=== PATIENT | male | born 1955 | race Caucasian/White ===

== ENCOUNTER → 2017-04-25 14:08 | Outpatient (CLI) | payer OTHER, SELFPAY ==
--- NOTE | 2017-04-25 14:16 | RAD_ITS ---
STUDY: X-RAY - LUMBAR SPINE REASON FOR EXAM: Male, 61 years old. 2 day history of extreme low back pain. TECHNIQUE: 5 view(s) of the lumbar spine were obtained including oblique views. COMPARISON: None FINDINGS: Normal lumbar lordosis. Minimal dextroscoliosis. There is a normal alignment of the vertebrae. Disc space narrowing and spondylosis at the L3-L4 level. Normal disc space heights. Facet joint osteoarthritis. The soft tissue structures are unremarkable. RAD/L/S Spine Min 4 Views IMPRESSION: Degenerative changes of the spine, as detailed above. Electronically Signed: Sreedhar Correa MD at 14:50 EST Tel [phone], Service support ,
== END ==
PROVIDERS: Family Provider Nurse Practitioner; PCP Nurse Practitioner; Visit Provider Nurse Practitioner
DX: M54.32 Sciatica, left side (principal); M41.86 Other forms of scoliosis, lumbar region; M48.061 Spinal stenosis, lumbar region without neurogenic claudication; M47.896 Other spondylosis, lumbar region
CPT/HCPCS: 72110

== ENCOUNTER → 2017-05-03 07:03 | Outpatient (CLI) | payer OTHER, SELFPAY ==
--- NOTE | 2017-05-03 07:15 | RAD_ITS ---
STUDY: TO THE ORBITS, RIGHT REASON FOR EXAM: Male, 61 years old. MRI clearance COMPARISON: None. FINDINGS: 2 views demonstrate no metallic orbital foreign body. RAD/Orbits for Foreign Body IMPRESSION: No metallic orbital foreign body. Electronically Signed: Matt Nixon MD at 7:46 EST Tel , Service support ,
--- NOTE | 2017-05-03 07:23 | MRI_ITS ---
STUDY: MRI LUMBAR SPINE WITHOUT CONTRAST REASON FOR EXAM: Male, 61 years old. Left leg pain and low back pain TECHNIQUE: Standardized fat and water weighted pulse sequences were obtained in the sagittal and axial planes. COMPARISON: None FINDINGS: Grade 1 anterolisthesis of L5 on S1 with bilateral L5 level spondylolysis. No evidence for cord edema. Conus terminus or possibly L1 level. Cauda equina nerve roots follow spinal curvature. Minimal wedging of the mid substance of the lumbar vertebra. Disc desiccation at L2-L3, L3-L4 and L5-S1 levels with mild loss of disc height. Endplate degenerative changes at L2-L3, L3-L4 and L5-S1 levels. Anterior and posterior osteophytic spurring. Hypertrophy of this process processes. Heterogeneous marrow signal intensity. Multiple scattered vertebral body hemangiomas Level by level analysis: L1-L2 level: Mild facet hypertrophy ligamentum flavum thickening and broad-based disc bulge without significant central canal stenosis or neural foraminal narrowing L2-L3 level: Bilateral facet hypertrophy ligamentum flavum thickening and broad-based disc bulge with a superimposed left subarticular and foraminal level disc extrusion and cephalad migration resulting in mild deformity of the left ventrolateral thecal sac and moderate left-sided neural foraminal narrowing and mild right-sided neural foraminal narrowing. Approximation/impingement of the left L2 nerve suspected L3-L4 level: Bilateral facet hypertrophy ligamentum flavum thickening and broad-based disc bulge resulting in moderate bilateral neural foraminal narrowing without significant central canal stenosis L4-L5 level: Bilateral facet hypertrophy ligamentum flavum thickening and broad-based disc bulge resulting in moderate right-sided and moderate left-sided neural foraminal narrowing with marginal osteophytes approximating the right exiting L4 nerve root. L5-S1 level: Bilateral facet hypertrophy with grade 1 anterolisthesis of L5 on S1 and a pseudodisc with a superimposed small central disc protrusion resulting in mild flattening of the ventral thecal sac [id number] bilateral neural foraminal narrowing. No paraspinous soft tissue mass or fluid collections. IMPRESSION: Grade 1 anterolisthesis of L5 on S1 with L5 level bilateral spondylolysis and spondylotic changes predominating at L2-L3 level. Electronically Signed: Aquiles Garcia, at 10:59 EST Tel , Service support , MRI/Spine Lumbar (Routine)
== END ==
PROVIDERS: Family Provider Nurse Practitioner; PCP Nurse Practitioner; Visit Provider Nurse Practitioner
DX: M54.32 Sciatica, left side (principal); M47.896 Other spondylosis, lumbar region
CPT/HCPCS: 70030; 72148

== ENCOUNTER 2017-05-22 11:00 | Outpatient (RCR) | payer OTHER, SELFPAY ==
--- NOTE | 2017-05-01 08:49 | HP.PTEVAL ---
Patient's Visit Information SANDOR HERNANDEZ is a 61 year old M referred to Physical Therapy by Darcie Daly NP.MCIESA with a diagnosis of Sciatica. Date of Evaluation: 04/28/17 Physical Therapist: Quang Parra - Visit Plan Frequency: 2x /Week Plan: Start with distraction in aquatic setting, light TA contraction, general mobility in gravity reduce eviornment. Once symptoms has reduce introduce light lumbar ext mobility. If progressing well, progress to land with focus body mechanics, lumbar ext tolerance (light), core stability (light). May use IF/US for modalities as needed. - Subjective Subjective: Pt. is here today for his initial evaluation with diagnosis of sciatica down his L side. Pt. reports having increased pain for 6 days. Pt. reports being over to throw away paper into his recycling can. Pt. reports having re occuring back pain ~1-2 per year, but not this date. Pt. is now having increased pain to 7-8/10 pain currently, but was so bad over the weekend, it was an 16. Pt did have an xray which showed arthritic changes, but no fx. Pt. reports being in good health prior to this injury and is no retired. He denies changes in B/B, but is having numbnes to his lateral L knee. Pt. denies weakness, but I feel like I am walking weird. He reports increased pain in the mornings, that decreases as he moves. Increased pain with sitting, walking is better, Pt. reports enjying playing golf, fishing, and plans on travelling and camping. He is hopeful to reduce symptoms in order to get back to all functional and recreational activities without limitations. He was given steroid, but was able to take due to pain. Spouse went to physican during evaluation and pt. was perscribed muscle relaxor. Pt's spouse also reports physician was looking into MRI for pt. - Pain LLE Pain Intensity (Out of 10): 5 Pain Intensity Range: 2, 6 Comment: lateral numbness. - Objective POSTURE: Pt. has flexed posture, fwrd lean and to R side. Pt. has increased pain with attempts to stand with erect posture. Pt. has rounded shoulders and decreased lumbar lordosis. PALPATION: Pt. has increased pain with palpation to lumbar erector spinea bilaterally, muscle tone noted as well. pt. has no pain throughout pelvic region and gluteal region. NEUROLOGICAL: Pt. has normal 2+ achilles and patellar DTR. Pt. does have marked weakness with R great toe ext. Pt. also has decreased sensation to light touch of proximal and disal LLE at lateral aspect. Pt. is able to rise on heels, but uses balance aid to complete. ROM: LUMBAR SPINE- flexion mod/max loss increase NW, ext max loss (unable to achieve erect posture), SB right min/mod loss incerase NW, SB L mod/max loss increase NW, rotation R mod loss increase NW, rotation L max loss increase NW. Pt. has normal hip ROM bilaterally, tight HS noted bilat. MMT- RLE- ankle 5/5 throughout; knee- ext 5/5, flexion 5/5; hip- flexion 4/5 (increase LBP), abd 4/5 increase NW. Great toe ext 5/5, flexion 5/5. LLE- ankle 5/5 throughout; great toe ext 5/5, flexion 5/5; knee- ext 5-/5, flexion 5-/5; hip- flexion 4/5 increase NW LBP, abd 4/5 increase NW LBP. Core strenth- poor increase NW. GAIT: Pt. ambulates with flexed posture and R wt. shift. Pt. has increased difficulty with getting erect posture. Pt. has increased pain with all L stance phase of gait, shots pain rigth down my leg from my back. DNT stairs this date. - Special Tests L/S Slump test left side: Positive L/S Slump test right side: Negative L/S Left Straight Leg Raise: Positive L/S Right Straight Leg Raise: Negative Lumbar Standing: Flexion - Mechanical Response: No effect Lumbar Standing: Flexion - Symptoms During Testing: Increases Lumbar Standing: Flexion - Symptoms After Testing: No worse Lumbar Standing: Extension - Mechanical Response: No effect Lumbar Standing: Extension - Symptoms During Testing: Increases Lumbar Standing: Extension - Symptoms After Testing: No worse Lumbar Standing: Right Side Glides - Mechanical Response: No effect Lumbar Standing: Right Side [place] - Symptoms During Testing: Increases Lumbar Standing: Right Side [place] - Symptoms After Testing: No worse Lumbar Standing: Left Side [place] - Mechanical Response: No effect Lumbar Standing: Left Side [place] - Symptoms During Testing: Increases Lumbar Standing: Left Side [place] - Symptoms After Testing: No worse Comments:: Pt. unable to get into position of prone secondary to increased pain Lumbar Static: Slouched Sit - Mechanical Response: No effect Lumbar Static: Slouched Sit - Symptoms During Testing: Increases Lumbar Static: Slouched Sit - Symptoms After Testing: No worse Lumbar Static: Sitting Erect - Mechanical Response: No effect Lumbar Static: Sitting Erect - Symptoms During Testing: Increases Lumbar Static: Sitting Erect - Symptoms After Testing: No worse Comments:: Pt. unable to get in prone positioning secondary to increased pain - Goals Goal 1:: Pt. to be I with HEP. Goal Time Frame: 4-6 Weeks Goal 2:: STG: Pt. to have decreased pain at rest to 0-2/10 in lumbar spine allowing for increased quality of life. Goal Time Frame: 2-4 Weeks Goal 3:: LTG: Pt. to ambulate and complete all ADLs 0-2/10 allowing increasd tolerance to all functional mobility and promote healthy life style. Goal Time Frame: 4-6 Weeks Goal 4:: LTG: Pt. to be educated in all prophalxis techniques to reduce risk for injury occuring in future. Goal Time Frame: 4-6 Weeks Goal 5:: LTG: Pt. to have increased lumbar ROM by 25% in all directions without increase in symptoms. Goal Time Frame: 4-6 Weeks Goal 6:: LTG: Pt. to have increased core/hip strength by 1/2 grade to reduce stress applied to lumbar spine with all activities. Goal Time Frame: 4-6 Weeks - Rehabilitation Potential Physical Therapy Diagnosis: Pt. has signs and symptoms consistent with LBP with possible discogenic in nature. Pt. has positive dural testing with staight leg test, and slump test. Pt. also had an event Rehabilitation Potential: Fair - Anticipated Interventions Patient/Client Instruction: Educate patient on: Condition, Plan of Care, Risk Factors, Benefits of Fitness Program For the Purpose of:: To improve safety, To improve health and function, To foster healthy habits, To improve decision making, To facilitate caregiver knowledge, To improve self management, To prevent re-injury, To improve ability to perform tasks related to life management, To improve tolerance to ADL's Therapeutic Exercise to Include: Strength training, Power training, Endurance training, Flexibilty training, In an aquatic setting, Passive ROM, Active ROM, Dynamic Lumbar Stabilization, Margret Exercises, Scapular Strength/Stabilization For the Purpose of:: To decrease pain, To decrease swelling/inflammation, To increase ROM, To improve nutrient delivery to tissue, To increase oxygenation perfusion, To improve muscle performance and motor function, To improve ability to perform ADL's, To increase tolerance to activity/condition/position, To improve health of tissue, To decrease soft tissue restriction, To increase flexibility/ROM Manual Therapy Techniques to Include: Massage, Mobilization, Soft tissue mobilization For the Purpose of:: To decrease pain, To increase ROM, To improve nutrient delivery to tissue, To increase oxygenation perfusion, To improve muscle performance and motor function, To improve ability to perform ADL's IF ES: Yes Cryotherapy (ice pack, ice massage): Yes Ultrasound (thermal/non thermal): Yes For the Purpose of:: To decrease pain, To decrease swelling/inflammation, To increase ROM Thank you for the opportunity to evaluate your patient. For Medicare and Medicare HMO plans, please review the plan of care and approve it. It will need to be FAXED BACK to us at [phone] for Medicare purposes. Please let me know if there are questions or concerns regarding this plan of care. Physician Signature: Date:
--- NOTE | 2017-05-22 12:38 | HP.PTREVAL_ITS ---
Darcie Daly, JAS.LEIGHA It has been my pleasure to treat SANDOR HERNANDEZ over the last 10 visits for Sciatica. Please see the progress note below for an update on the physical therapy plan of care! Subjective: PATIENT REPORTS HE NEVER DID GET AN INJECTION. THERAPY HAS RELEAVED THE PRESSURE AND HE IS ALMOST A 100% BETTER. APPOINTMENT WITH DR. TA THIS WEEK AND HE RECOMMENDED INJECTIONS HE JUST HAS TO SCHEDULE IT IF HE WANTS IT. HE HAS ALSO SUBMITTED HIS CASE TO DR. MCKENNA AT [facility] AND IS AWAITING A RESPONSE FROM THEM. PATIENT REPORTS THAT AT THIS POINT HIS BACK IS NOT LIMITING ANY OF HIS NORMAL ACTIVITIES. HE FEELS HIS ACTIVITIES ARE UNRESTRICTED AT THIS TIME. Objective/Function: THIS PATIENT AMBULATES INDEP'LY INTO PT WITH NO GROSS DEVIATIONS NOTED. HE IS ABLE TO TRANSFER IND'LY FROM SIT TO STAND WITHOUT UE ASSIST. NE DENIES PAIN WITH ANY TESTING TODAY. LUMBAR MVMT LOSS: FLEX - NIL, EXT - MOD, ALM ADELIA SG - MIN TO MOD. AGAIN - TESTING DOES NOT PROVOKE PAIN. ALMA DELIA LE STRENGTH IS 5/5 WITH MMT EXCEPT HIPS GRADED 4/5 AND CORE STRENGTH IS FAIR. ALMA DELIA LE DTR'S ARE 2/3. ALMA DELIA LE LIGHT TOUCH SENSATION IS INTACT AND SYMMETRICAL AND ALMA DELIA LE DURAL SIGNS ARE NEGATIVE. HE DOES STILL HAVE DECREASED PROPER HEP KNOWLEGE BUT BECOMING INDEP WITH A POOL PROGRAM TO THE POINT THAT HE CAN TRANSITION TO INDEPENDENCE AT PLACE OF HIS CHOICE (DAYS INN) WHILE DECREASE AQUATIC PT TO ONCE A WEEK. DECREASED KNOWLEGE OF PROPER BODY MECHANICS. Plan Plan: RECOMMEND CONTINUED PT 1X/WEEK IN THE POOL AND 1X/WEEK ON LAND TO CONTINUE TO PROGRESS TOWARD SAME GOALS. PATIENT IS AGREEABLE WITH THIS POC Goals Goal 1:: Pt. to be I with HEP. Goal Time Frame: 4-6 Weeks Goal 2:: STG: Pt. to have decreased pain at rest to 0-2/10 in lumbar spine allowing for increased quality of life. Goal Time Frame: 2-4 Weeks Goal 3:: LTG: Pt. to ambulate and complete all ADLs 0-2/10 allowing increasd tolerance to all functional mobility and promote healthy life style. Goal Time Frame: 4-6 Weeks Goal 4:: LTG: Pt. to be educated in all prophalxis techniques to reduce risk for injury occuring in future. Goal Time Frame: 4-6 Weeks Goal 5:: LTG: Pt. to have increased lumbar ROM by 25% in all directions without increase in symptoms. Goal Time Frame: 4-6 Weeks Goal 6:: LTG: Pt. to have increased core/hip strength by 1/2 grade to reduce stress applied to lumbar spine with all activities. Goal Time Frame: 4-6 Weeks Anticipated Interventions Patient/Client Instruction: Educate patient on: Condition, Plan of Care, Risk Factors, Benefits of Fitness Program For the Purpose of:: To improve safety, To improve health and function, To foster healthy habits, To improve decision making, To facilitate caregiver knowledge, To improve self management, To prevent re-injury, To improve ability to perform tasks related to life management, To improve tolerance to ADL's Therapeutic Exercise to Include: Strength training, Power training, Endurance training, Flexibilty training, In an aquatic setting, Passive ROM, Active ROM , Dynamic Lumbar Stabilization, Margret Exercises, Scapular Strength/ Stabilization For the Purpose of:: To decrease pain, To decrease swelling/inflammation, To increase ROM, To improve nutrient delivery to tissue, To increase oxygenation perfusion, To improve muscle performance and motor function, To improve ability to perform ADL's, To increase tolerance to activity/condition/position, To improve health of tissue, To decrease soft tissue restriction, To increase flexibility/ROM Manual Therapy Techniques to Include: Massage, Mobilization, Soft tissue mobilization For the Purpose of:: To decrease pain, To increase ROM, To improve nutrient delivery to tissue, To increase oxygenation perfusion, To improve muscle performance and motor function, To improve ability to perform ADL's IF ES: Yes Cryotherapy (ice pack, ice massage): Yes Ultrasound (thermal/non thermal): Yes For the Purpose of:: To decrease pain, To decrease swelling/inflammation, To increase ROM Please do not hesitate to contact me at [phone] by phone or Fax: if you have questions or concerns regarding this new plan of care! Sincerely, Giovana Ahumada
--- NOTE | 2017-09-16 13:41 | HP.PTDCNRP_ITS ---
HP - Discharge Summary (1) - Patient Information SANDOR HERNANDEZ was seen in my office for initial evaluation on 04/28/17. The following Plan of Care was established for this patient: Initial Frequency: 2x /Week - Anticipated Interventions Patient/Client Instruction: Educate patient on: Condition, Plan of Care, Risk Factors, Benefits of Fitness Program For the Purpose of:: To improve safety, To improve health and function, To foster healthy habits, To improve decision making, To facilitate caregiver knowledge, To improve self management, To prevent re-injury, To improve ability to perform tasks related to life management, To improve tolerance to ADL's Therapeutic Exercise to Include: Strength training, Power training, Endurance training, Flexibilty training, In an aquatic setting, Passive ROM, Active ROM , Dynamic Lumbar Stabilization, Margret Exercises, Scapular Strength/ Stabilization For the Purpose of:: To decrease pain, To decrease swelling/inflammation, To increase ROM, To improve nutrient delivery to tissue, To increase oxygenation perfusion, To improve muscle performance and motor function, To improve ability to perform ADL's, To increase tolerance to activity/condition/position, To improve health of tissue, To decrease soft tissue restriction, To increase flexibility/ROM Manual Therapy Techniques to Include: Massage, Mobilization, Soft tissue mobilization For the Purpose of:: To decrease pain, To increase ROM, To improve nutrient delivery to tissue, To increase oxygenation perfusion, To improve muscle performance and motor function, To improve ability to perform ADL's IF ES: Yes Cryotherapy (ice pack, ice massage): Yes Ultrasound (thermal/non thermal): Yes For the Purpose of:: To decrease pain, To decrease swelling/inflammation, To increase ROM This patient was last seen in our office 05/22/17. Pertinent comments regarding their Physical therapy will appear below: This patient has not returned to Physical Therapy and is appropriate to return to MD for further follow-up as needed. At this point I will be discontinuing this patient from physical therapy. I would be happy to see this patient again in the future if found appropriate by the physician. Thank you! Giovana Ahumada
== END 2017-05-22 19:00 | disposition home or self-care (01) ==
LOC: PT 11:00
PROVIDERS: Family Provider Nurse Practitioner; PCP Nurse Practitioner; Visit Provider Nurse Practitioner
DX: M54.30 Sciatica, unspecified side (principal)
CPT/HCPCS: 97113; 97161; 97164; 97530

== ENCOUNTER → 2018-01-06 07:57 | Outpatient (CLI) | payer OTHER, SELFPAY ==
--- NOTE | 2018-01-06 07:59 | CT_ITS ---
STUDY: CT ABDOMEN AND PELVIS WITH CONTRAST REASON FOR EXAM: Male, 62 years old. History of left lower quadrant and left groin pain. RADIATION DOSAGE (If Supplied By Facility): CTDIvol = ( 16.55 ) mGy, DLP = ( 1093.83 ) mGycm TECHNIQUE: Transaxial images were obtained from the dome of the diaphragm to the symphysis pubis with oral contrast. 100 ml of Isovue 300 contrast was administered. Sagittal and coronal images were reconstructed. Individualized dose optimization techniques were used for this CT. COMPARISON: None. FINDINGS: Minimal increased markings at the lung bases suggestive of a linear atelectasis and/or scarring. The visualized portions of the heart are within normal limits. There is decreased attenuation of the liver consistent with steatosis. There is a 6 mm isodense nodule arising from the posterolateral aspect the right lobe of the liver in the region of the dome of the liver. This may represent a normal contour deformity. The patient is status post cholecystectomy. Normal spleen. Normal pancreas. Normal bilateral adrenal glands. Multiple right renal cysts. The largest measures 4 cm x 3.6 cm. There is a 2 cm cyst in the anterior superior aspect of the left kidney. There is a small hiatal hernia. Normal small intestine. There are multiple colonic diverticula consistent with diverticulosis. The patient has a history of prior appendectomy. There is scattered atherosclerotic calcification of the abdominal aorta, without a demonstrated aneurysm. Normal inferior vena cava. Normal retroperitoneum. Normal urinary bladder. There is a small umbilical hernia containing fat. Small benign-appearing bilateral inguinal lymph nodes. Grade 1 anterior listhesis of L5 on S1 with spondylolysis of the pars interarticularis of the L5 vertebrae. CT/Abdomen/Pelvis WITH Contrast IMPRESSION: Fatty infiltration of the liver. Bilateral renal cysts. Sigmoid diverticulosis. Electronically Signed: Sreedhar Correa MD at 13:52 EDT Tel [phone], Service support ,
[2018-01-06 08:11] LABS: CREATININE FINGERSTICK 1.2 mg/dL (0.70-1.30); EGFR FINGERSTICK > 60.0000 mL/min (>60)
== END ==
PROVIDERS: Family Provider Nurse Practitioner; PCP Nurse Practitioner; Referring Provider Surgery; Visit Provider Surgery
DX: K76.0 Fatty (change of) liver, not elsewhere classified (principal); N28.1 Cyst of kidney, acquired; K57.30 Diverticulosis of large intestine without perforation or abscess without bleeding; R10.9 Unspecified abdominal pain
CPT/HCPCS: 74177; Q9967

== ENCOUNTER 2018-02-03 08:39 | Day surgery (SDC) | payer OTHER, SELFPAY ==
--- NOTE | 2018-01-28 10:36 | EKG12_ITS ---
Test Reason : PRE-OP Blood Pressure : / mmHG Vent. Rate : 055 BPM Atrial Rate : 055 BPM P-R Int : 138 ms QRS Dur : 102 ms QT Int : 412 ms P-R-T Axes : 016 029 021 degrees QTc Int : 394 ms Sinus bradycardia Otherwise normal ECG Confirmed by ZINA ALVARADO, RUIZ ([id number]), publication editor LORENA ABEL ([id number]) on 01/30/2018 1:43:26 PM Referred By: Samir Kim Confirmed By:RUIZ IZAGUIRRE MD
[2018-02-03] VITALS (7 sets, daily range): BP systolic 127–136; BP diastolic 76–91; PULSE 59–77; RESP 8–16; TEMP 36.1–37; O2SAT 92–98; BMI 29.4
[2018-02-03] MEDS: Cefazolin 2 GM in 0.9% Normal Saline 100 ML IV (10:44)
--- NOTE | 2018-02-03 10:55 | DCINST_ITS ---
Discharge Diet: Light diet - advance as tolerated Discharge Activity: Return to Normal Activity, May Drive - when you are no longer taking narcotic pain medications., May Shower - with the bandage in place 1-2 days after surgery. Lifting Restrictions: 20 pounds for 8 weeks. Additional Activity Instructions:: Climbing stairs is fine, walking is encouraged. Sitting in bed may be uncomfortable. Sitting up using your lateral muscles (sitting up sideways) is usually more comfortable. Do not drive, work heavy equipment of sign legal documents for 24 hours. If your hernia repair was an ingunial repair, you may have scrotal swelling, an ice pack and/or athletic support can provide more comfort. Pain medications may cause nausea, you should typically eat light foods as you take your pain medications. Pain medications may also cause constipation. If you have difficulty with this, discuss with your doctor. Call your doctor if your incision/area has: Continuous Slow Oozing, Sudden Increased Bleeding, Increased Pain/ Swelling, Increased Redness, Foul Smelling Discharge Call your doctor if you observe: Fever of 101 or Higher Suture Line Care: Avoid Pulling/Pushing, Avoid Pinching/Bending Additional Dressing/Incision Instructions:: Leave the operative bandage on for 2-3 days. When you remove the bandage, leave the steri-strips on place until your follow up appointment or they fall off. Allergies/Adverse Reactions: Allergies No Known Allergies Allergy (Verified 01/28/18 08:07) Medications to take at Discharge aspirin 81 mg chewable tablet 81 mg PO DAILY 12/29/17 famotidine 20 mg tablet 20 mg PO DAILY 12/29/17 glucosamine [id number] lizzy 1,500 mg-400 unit-100 mg tablet 1 tab PO DAILY 12/29/17 lisinopril 10 mg tablet 10 mg PO DAILY 12/29/17 omega-3 fatty acids 1,000 mg capsule 1,000 mg PO DAILY 12/29/17 Oxycodone HCl/Acetaminophen [Percocet 5/325] 1 - 2 tab PO Q4H PRN PRN 5 Days #30 tab 02/03/18 The following prescriptions were given: Oxycodone HCl/Acetaminophen [Percocet 5/325] 1 - 2 tab PO Q4H PRN PRN 5 Days #30 tab PRN Reason: Pain Orders to be completed after discharge: 12 Lead EKG [[facility]] Time Frame: 01/28/18, Location: None Selected Primary Care Physician: Darcie Daly NP-C [Primary Care Provider] - Test Results: Test results from this visit will be discussed in further detail at your follow- up appointment, if applicable. Please Follow Up With: Samir Kim MD - [phone] When: Plan to have a follow up appointment in 7 days. Call to schedule.
--- NOTE | 2018-02-03 10:55 | OP.PCM_ITS ---
Problem List (1) Reducible left inguinal hernia Status: Acute Report of Operation Date of Procedure: 02/03/18 Pre-Operative Diagnosis: Reducible left inguinal hernia Post-Operative Diagnosis: Same Surgery/Procedure Performed:: Laparoscopic left inguinal herniorrhaphy Type of Anesthesia:: General Anesthesiologist: Doug Ingram Estimated Blood Loss (mL): < 25 cc Description of Procedure: Patient was brought into the operating room. Placed in the supine position. Under excellent general trach intubation the abdomen was sterilely prepped draped in usual fashion. Local was injected supra umbilically. Dissection was carried down to fascia. Fascia was grasped with Manito. Varies needle was placed inside the abdomen. The abdomen was insufflated to 15 torr. A 10/12 trocar was placed without difficulty. It was flank by 2 #5 trochars both placed under direct visualization without injury to underlying structures. Patient was placed in the head down rotated to the right position. I scored the peritoneum on the left. He had an indirect inguinal hernia noted. I dissected down to Sage's ligament. I dissected laterally. I dissected the peritoneum off the cord and vessel structures. I dissected further laterally. I had excellent hemostasis. I fashioned a large 3 DMax mesh into the wound. I tacked to the Sage's ligament with a pro-tacker. I tacked it superiorly and laterally with sparing tax. I reperitonealized area covering the mesh completely. I inspected the right side no hernia was identified. Ilioinguinal nerve block was performed. Trochars were removed under direct visualization. Fascia the umbilical port was closed with a ivdgwl-bj-eyevd stitch of 0 Vicryl. Skin inc isions were closed with subcuticular stitches of 4-0 Monocryl. Steri-Strips are applied. Sterile dressings were applied. Patient tolerated the procedure well. - Admit VTE Documentation VTE Present on Admission: No VTE Mechan Device Prophylaxis: SCD's VTE Pharm Prophylaxis ordered?: No Reason prophylaxis not ordered:: Treatment Not Indicated
[2018-02-03] MEDS: Bupivacaine Mpf 0.5% 30 ML VIAL (11:24)
[2018-02-03] MEDS: Racepinephrine HCl 0.5 ML VIAL.NEB. INHALATION (12:05)
[2018-02-03] MEDS: HYDROcodone Bitartrate/Apap 5/325 Tablet PO (13:05)
--- OUTSIDE RECORDS SUMMARY | 2018-03-17 21:26 | XMS RPT_ITS | Continuity of Care Document ---
:1955 Author Organization [facility] Address [facility] [address] [place] [address] Phone Care Team Providers Name Role Phone Addy BUCHANANDarcie E Unavailable Phuc Fisher Unavailable Jillian ALVARADO, Claudia South Unavailable Toan Frnacisco Unavailable Mt Santos Unavailable Dr. Elkin Silverio Unavailable Jackelyn Montiel Unavailable Unavailable Slarb BRUSHER, Liz Unavailable Unavailable Long BRUSHER, Ana Maria L Unavailable Unavailable Unavailable Unavailable Problems Name Dates Details Acute foreign body of left ear canal, initial encounter (T16.2XXA, 931) Comments: removed foreign body in left ear canal with forceps without difficulty Status: Active Acute sinusitis, unspecified (J01.90, 461.9) Status: Active BMI 30.0-30.9,adult (Z68.30, V85.30) Status: Active Coronary artery disease (I25.10, 414.00) Comments: released from cardio. cath 8 mild. no signs and symptoms. taking asa a day refuse statin Status: Active Current nonsmoker (Z78.9, V49.89) Status: Active Current nonsmoker (Z78.9, V49.89) Status: Active Diverticulosis of colon (K57.30, 562.10) Status: Active Encounter for routine history and physical exam for male (Z00.00, V70.0) Comments: scope 2005 good due next month. psa rectal 5-16 Status: Active Encounter for screening colonoscopy (Z12.11, V76.51) Status: Active Hypercholesterolemia (E78.00, 272.0) Comments: reveiwed with patient recent tests and ldl much better with weight loss. told with guidelines should be on statin with CAD adn father early [place]. pt refuse understand risk and benefits Status: Active Hypertension (I10, 401.9) Comments: stable controlled on lisinopril Status: Active Lower back pain (M54.5, 724.2) Comments: Send to Dr. FISHER and Saud Status: Active Need for prophylactic vaccination and inoculation against influenza (Z23, V04.81) Status: Active Need for prophylactic vaccination and inoculation against influenza (Renamed from Need for immunization against influenza) (Z23, V04.81) Status: Active Numbness and tingling of leg (R20.0, 782.0) Status: Active Obesity, unspecified (E66.9, 278.00) Comments: lost weight and donw well. 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 think Gikberts on and off for years. check break down. pt go letter from insurance yoni charge $300 more because of this Status: Active Medications Name Dates Details ASPIRIN CHILDRENS, 81MG (Oral Tablet Chewable) 1 tablet daily for 0 days Quantity: 30 {Tablet} Refills: 0 Ordered:18-Jul-2015 Claudia Walsh MD Start : 18-Jul-2015 Active Augmentin 875-125 MG Oral Tablet 1 Tablet bid for 14 days Quantity: 28 {Tablet} Refills: 0 Ordered:11-Feb-2018 Addy BUCHANAN, Darcie Barrera CNP, Darcie Baird Start : 11-Feb-2018 Active Fish Oil Double Strength 1200 MG Oral Capsule 1 (one) Capsule daily for 0 days Quantity: 30 {Capsule} Refills: 0 Ordered:22-May-2016 Addy BUCHANAN, Darcie Barrera CNP, Darcie Baird Start : 22-May-2016 Active Lisinopril 10 MG Oral Tablet 1 Tablet QD for 0 days Quantity: 90 {Tablet} Refills: 3 Ordered:21-Aug-2017 Addy BUCHANAN, Darcie Barrera CNP, Darcie Baird Start : 21-Aug-2017 Active Osteo Bi-Flex Adv Double St Oral Tablet 1 (one) Tablet daily for 0 days Quantity: 30 {Tablet} Refills: 0 Ordered:22-May-2016 Addy BUCHANAN, Darcie Barrera CNP, Darcie Baird Start : 22-May-2016 Active TraMADol HCl ER 100 MG Oral Capsule Extended Release 24 Hour 1 (one) Capsule Capsule qday x 3 days for 0 days Quantity: 3 {Capsule} Refills: 0 Ordered:28-Apr-2017 Liz Patel LPN Start : 28-Apr-2017 Active ADVICOR, 500-20MG (Oral Tablet Extended Release 24 Hour) daily (500-20 MG) Inactive Cyclobenzaprine HCl 5 MG Oral Tablet 1 (one) Tablet Tablet tid prn for muscle spasm for 0 days Quantity: 60 {Tablet} Refills: 0 Ordered:09-May-2017 Liz Patel LPN Start : 28-Apr-2017 End : 09-May-2017 Inactive GUAIATUSSIN AC, 100-10MG/5ML (Oral Syrup) 1 Syrup 1tsp for 0 days Quantity: 6 {Ounce(s)} Refills: 0 Ordered:05-Jan-2009 VIVIANA Ward Start : 05-Jan-2009 End : 28-Feb-2009 Inactive PREVACID SOLUTAB, 30MG (Oral Tablet Dispersible) Tablet Disperse QD for 0 days Refills: 0 Ordered:21-Feb-2006 VIVIANA Ward Start : 21-Feb-2006 End : 08-Mar-2008 Inactive SELENIUM SULFIDE, 1% (External Lotion) UAD Lotion Twice daily for 0 days Quantity: 90 {Lotion} Refills: 0 Ordered:26-Feb-2011 VIVIANA Ward Start : 17-Apr-2007 End : 26-Feb-2011 Inactive Comments:PLACE ON AREAS AFFECTED /LEAVE ON FOR 10-15 MINS THEN RINSE TAMIFLU, 75MG (Oral Capsule) 1 (one) Capsule Twice daily for 0 days Quantity: 10 {Capsule} Refills: 0 Ordered:17-Apr-2007 VIVIANA Ward Start : 17-Apr-2007 End : 08-Mar-2008 Inactive Zithromax Z-Manny 250 MG Oral Tablet 1 Tablet as directed for 0 days Quantity: 1 {Package} Refills: 0 Ordered:22-Apr-2016 VIVIANA Ward Start : 31-Jan-2016 End : 22-Apr-2016 Inactive ZOSTAVAX, 83798TZY/0.65ML (Subcutaneous Solution Reconstituted) 1 For Solution For Solution sc once for 0 days Quantity: 1 {For_Solution} Refills: 0 Ordered:18-Jul-2015 VIVIANA Ward Start : 16-Jul-2013 End : 18-Jul-2015 Inactive Cheratussin DAC 30-10-100 MG/5ML Oral Solution 1-2 Teaspoon qhs prn for 0 days Quantity: 6 {Ounce} Refills: 0 Ordered:31-Jan-2016 VIVIANA Ward Start : 31-Jan-2016 End : 22-Apr-2016 Discontinued Comments:This order discontinued per [facility]. Medrol 4 MG Oral Tablet Therapy Pack 1 (one) Milligram TAD for 0 days Quantity: 1 {Package} Refills: 0 Ordered:28-Apr-2017 Mimi Benoit Start : 25-Apr-2017 End : 28-Apr-2017 Discontinued Comments:with food Meloxicam 7.5 MG Oral Tablet 1-2 Tablet once daily prn for pain for 0 days Quantity: 60 {Tablet} Refills: 0 Ordered:28-Apr-2017 Mimi Benoit Start : 25-Apr-2017 End : 28-Apr-2017 Discontinued Comments:with food Allergies and Adverse Reactions Name Dates Details No Known Drug Allergies (Allergy) Status: Active Past Medical History Name Dates Details Abnormal blood chemistry (R79.9, 790.6) Status: Inactive as of 16-Jul-2013 BMI 29.0-29.9,adult (Z68.29, V85.25) Status: Inactive as of 25-Apr-2017 BMI 31.0-31.9,adult (Z68.31, V85.31) Status: Inactive as of 25-Apr-2017 Bronchitis (J40, 490) Status: Inactive as of 22-Apr-2016 Calculus of kidney (N20.0, 592.0) 06-Mar-2010 Status: Inactive as of 16-Jul-2013 Cholecystectomy Jan-2005 Status: Inactive as of 16-Jul-2013 Cough (R05, 786.2) Status: Inactive as of 25-Apr-2017 Cough (R05, 786.2) Status: Inactive as of 28-Feb-2009 Displacement of intervertebral disc, site unspecified, without myelopathy (722.2) Status: Inactive as of 16-Jul-2013 Ear discomfort, left (H92.02, 388.70) Status: Inactive as of 25-Apr-2017 Influenza due to influenza A virus with upper respiratory signs (J11.1, 487.1) Status: Resolved as of 08-Mar-2008 Low back pain (Renamed from LBP (low back pain)) (M54.5, 724.2) Status: Inactive as of 16-Jul-2013 Other chest pain (R07.89, 786.59) Status: Resolved as of 08-Mar-2008 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 Status: Inactive as of 16-Jul-2013 Preop examination (Z01.818, V72.84) Comments: rt macular hole surgery per Dr. Efren Mcrae [facility] Status: Inactive as of 25-Apr-2017 Seborrheic dermatitis, unspecified (L21.9, 690.10) Status: Inactive as of 12-Sep-2008 Unspecified Diagnosis Status: Inactive as of 16-Jul-2013 Procedures Procedure Dates Details COLONOSCOPY, DIAGNOSTIC (57599) Completed Aug-2005 Date Value Details 11-Feb-2018 Operative Report Result: Comments: See Note; NOTES: [facility] Medical Records Department [address] [place] [address] Operative Report 02/03/18 1054 MR#: [id number] Acct: [id number] Name: BRIELLE CORTEZ Rep #: [id number] : 1955 62 From: Samir Kim MD PCP: Darcie Daly NP Status: DEP [facility] Y Location: [facility] Problem List (1) Reducible left inguinal hernia Status: Acute Report of Operation Date of Procedure: 02/03/18 Pre-Operative Diagnosis: Reducible left inguinal hernia Post-Operative Diagnosis: Same Surgery/Procedure Performed:: Laparoscopic left inguinal herniorrhaphy Type of Anesthes ia:: General Anesthesiologist: Doug Ingram Estimated Blood Loss (mL): < 25 cc Description of Procedure: Patient was brought into the operating room. Placed in the supine position. Under exc ellent general trach intubation the abdomen was sterilely prepped draped in usual fashion. Local was injected supra umbilically. Dissection was carried down to fascia. Fascia was grasped with Isma. Esther ies needle was placed inside the abdomen. The abdomen was insufflated to 15 torr. A 10/12 trocar was placed without difficulty. It was flank by 2 #5 trochars both placed under direct visualization witho ut injury to underlying structures. Patient was placed in the head down rotated to the right position. I scored the peritoneum on the left. He had an indirect inguinal hernia noted. I dissected down to Sage's ligament. I dissected laterally. I dissected the peritoneum off the cord and vessel structures. I dissected further laterally. I had excellent hemostasis. I fashioned a large 3 DMax mesh into t he wound. I tacked to the Sage's ligament with a pro-tacker. I tacked it superiorly and laterally with sparing tax. I reperitonealized area covering the mesh completely. I inspected the right side no hernia was identified. Ilioinguinal nerve block was performed. Trochars were removed under direct visualization. Fascia the umbilical port was closed with a oxldnj-kp-tantu stitch of 0 Vicryl. Skin inci sions were closed with subcuticular stitches of 4-0 Monocryl. Steri-Strips are applied. Sterile dressings were applied. Patient tolerated the procedure well. - Admit VTE Documentation VTE Present on Ad mission: No VTE Mechan Device Prophylaxis: SCD's VTE Pharm Prophylaxis ordered?: No Reason prophylaxis not ordered:: Treatment Not Indicated 02/11/18 1121 <Electronically signed by Samir reyes MD> Date Samir Kim MD CC: Darcie Daly NP; Samir Kim MD; Monico Medel MD Signed 06-Feb-2018 12 Lead Electrocardiogram Result: Comments: See Note; NOTES: [facility] Cardiovascular Services [address] [place] [address] 12 Lead EKG 01/28/18 1046 MR#: [id number] Acct: [id number] Name: SANDOR CORTEZ J Re p #: [id number] : 1955 62 From: Philip Sheridan MD Attending Dr: Samir Kim MD Status: DEP [facility] Ordering Dr: Samir Kim MD Date: 01/28/18 Location: [facility] Sex: M C Admitted: Test Reason : PRE- OP Blood Pressure : / mmHG Vent. Rate : 055 BPM Atrial Rate : 055 BPM P- R Int : 138 ms QRS Dur : 102 ms QT Int : 412 ms P-R-T Axes : 016 029 021 degrees QTc Int : 394 ms Sinus bradycardia Otherwi se normal ECG Confirmed by ZINA ALVARADO, PHILIP ([id number]), editor department LORENA ABEL ([id number]) on 01/30/2018 1:43:26 PM Referred By: Samir Kim Confirmed By:PHILIP SHERIDAN MD 01/30/18 1343 Date Philip Sheridan MD CC: Darcie Daly NP; Samir Kim MD Signed 03-Feb-2018 Discharge Instruction Result: Comments: See Note; NOTES: [facility] Medical Records Department [address] [place] [address] Instructions for Home/Discharge Instructions 02/03/18 1055 MR#: [id number] Acct: [id number] Name: SANDOR CORTEZ Rep #: [id number] : 1955 62 From: Samir Kim MD PCP: Darcie Daly NP Status: REG SD Discharge Diet: Light diet - advance as tolerated Discharge Activity: Re turn to Normal Activity, May Drive - when you are no longer taking narcotic pain medications., May Shower - with the bandage in place 1-2 days after surgery. Lifting Restrictions: 20 pounds for 8 weeks. Additional Activity Instructions:: Climbing stairs is fine, walking is encouraged. Sitting in bed may be uncomfortable. Sitting up using your lateral muscles (sitting up sideways) is usually more comfo rtable. Do not drive, work heavy equipment of sign legal documents for 24 hours. If your hernia repair was an ingunial repair, you may have scrotal swelling, an ice pack and/or athletic support can prov arthur more comfort. Pain medications may cause nausea, you should typically eat light foods as you take your pain medications. Pain medications may also cause constipation. If you have difficulty with thi s, discuss with your doctor. Call your doctor if your incision/area has: Continuous Slow Oozing, Sudden Increased Bleeding, Increased Pain/ Swelling, Increased Redness, Foul Smelling Discharge Call your doctor if you observe: Fever of 101 or Higher Suture Line Care: Avoid Pulling/Pushing, Avoid Pinching/Bending Additional Dressing/Incision Instructions:: Leave the operative bandage on for 2-3 days. Wh en you remove the bandage, leave the steri-strips on place until your follow up appointment or they fall off. Allergies/Adverse Reactions: Allergies No Known Allergies Allergy (Verified 01/28/18 08:07) Medications to take at Discharge aspirin 81 mg chewable tablet 81 mg PO DAILY 12/29/17 famotidine 20 mg tablet 20 mg PO DAILY 12/29/17 glucosamine MGo-Z6-Bjymiyzbl lizzy 1,500 mg-400 unit-100 mg tablet 1 tab PO DAILY 12/29/17 lisinopril 10 mg tablet 10 mg PO DAILY 12/29/17 omega-3 fatty acids 1,000 mg capsule 1,000 mg PO DAILY 12/29/17 Oxycodone HCl/Acetaminophen [Percocet 5/325] 1 - 2 tab PO Q 4H PRN PRN 5 Days #30 tab 02/03/18 The following prescriptions were given: Oxycodone HCl/Acetaminophen [Percocet 5/325] 1 - 2 tab PO Q4H PRN PRN 5 Days #30 tab PRN Reason: Pain Orders to be completed after discharge: 12 Lead EKG [[facility]] Time Frame: 01/28/18, Location: None Selected Primary Care Physician: Darcie Daly NP-C [Primary Care Provider] - Test Results: Test results from this visit will be dis cussed in further detail at your follow-up appointment, if applicable. Please Follow Up With: Samir Kim MD - [phone] When: Plan to have a follow up appointment in 7 days. Call to schedule. 02/03/18 5514 <Electronically signed by Samir Kim MD> Date Samir Kim MD CC: Darcie Daly NP; Monico Medel MD 06-Jan-2018 Abdomen/Pelvis WITH Contrast Result: Comments: See Note; NOTES: [facility] Imaging Services [address] [place] [address] Abdomen/Pelvis WITH Contrast MR#: [id number] Acct: [id number] Name: SANDOR CORTEZ Rep #: [id number] : 1955 M 62 From: Sreedhar Correa MD PCP: Darcie Daly NP Status: REG CLI Study: Abdomen/Pelvis WITH Contrast Date of Exam: 01/06/18 Exam# [id number] Ordering Dr: Sushma Castano STUDY: CT ABDOMEN AND PELVIS WITH CONTRAST REASON FOR EXAM: Male, 62 years old. History of left lower quadrant and left groin pain. RADIATION DOSAGE (If Supplied By Facility): CTDIvol = ( 16.55 ) mGy, DLP = ( 1093.83 ) mGycm TECHNIQUE: Transaxial images were obtained from the dome of the diaphragm to the symphysis pubis with oral contrast. 100 ml of Isovue 300 contrast was administered. Sagit satya and coronal images were reconstructed. Individualized dose optimization techniques were used for this CT. COMPARISON: None. FINDINGS: Minimal increased marking s at the lung bases suggestive of a linear atelectasis and/or scarring. The visualized portions of the heart are within normal limits. There is decreased attenuation of the liver consistent with steato sis. There is a 6 mm isodense nodule arising from the posterolateral aspect the right lobe of the liver in the region of the dome of the liver. This may represent a normal contour deformity. The patient is status post cholecystectomy. Normal spleen. Normal pancreas. Normal bilateral adrenal glands. Multiple right renal cysts. The largest measures 4 cm x 3.6 cm. There is a 2 cm cyst in the anterior s uperior aspect of the left kidney. There is a small hiatal hernia. Normal small intestine. There are multiple colonic diverticula consistent with diverticulosis. The patient has a history of prior appe ndectomy. There is scattered atherosclerotic calcification of the abdominal aorta, without a demonstrated aneurysm. Normal inferior vena cava. Normal retroperitoneum. Normal urinary bladder. There is a small umbilical hernia containing fat. Small benign-appearing bilateral inguinal lymph nodes. Grade 1 anterior listhesis of L5 on S1 with spondylolysis of the pars interarticularis of the L5 vertebra e. CT/Abdomen/Pelvis WITH Contrast IMPRESSION: Fatty infiltration of the liver. Bilateral renal cysts. Sigmoid diverticulosis. Electronically Si gned: Sreedhar Correa MD at 13:52 EDT Tel [phone], Service support , CC: Darcie Daly ORDER SELECTOR; Sushma Tavera Early Breastfeeding Care Specialist: Signed 29-Dec-2017 Surgery Visit Report Result: Comments: See Note; NOTES: [facility] [address] [place] [address]. [address] [place] [address] OFFICE VISIT Date of Service: 12/29/17 MR#: [id number] Acct: [id number] Name: SANDOR CORTEZ Rep #: [id number] : 1955 Provider: Samir Kim MD Age/Sex: 62/M Location: [facility] Status: Signed Intake Vital Signs12/29/17 Height 5 ft 11.5 in 12/29/17 Weight: 210 lb 5 oz 8 Body Mass Index (BMI) 28.9 12/29/17 Blood Pressure 138/89 H Intake Visit Reasons: Hernia Chief Complaint: left inguinal pain/ lump Master Pilot Required: No Is patient in pain?: Yes Pain scale (1-10) : 5 Allergies No Known Allergies Allergy (Verified 12/29/17 14:25) Medications aspirin 81 mg chewable tablet 81 mg PO DAILY 12/29/17 [History Confirmed 12/29/17] famotidine 20 mg tablet 20 mg PO DA BRI 12/29/17 [History Confirmed 12/29/17] glucosamine HCv-L0-Bxdhtdmgb lizzy 1,500 mg-400 unit-100 mg tablet 1 tab PO DAILY 12/29/17 [History Confirmed 12/29/17] lisinopril 10 mg tablet 10 mg PO DAILY 12/29/17 [History Confirmed 12/29/17] omega-3 fatty acids 1,000 mg capsule 1,000 mg PO DAILY 12/29/17 [History Confirmed 12/29/17] [facility] Medical History Back pain (Acute) GERD (gastroesophageal reflux disease) (Acute) HTN (hypertension) (Chronic) Surgical History History of appendectomy (Acute) H istory of cholecystectomy (Acute) History of colonoscopy (Acute) History of repair of right rotator cuff (Acute) Family History Sister Diabetes Heart disease Hypertension Brother Heart disease Hypertension Cancer prostate Brother Cancer prostate Social History Smoking Status: Never smoker HPI HPI HPI: SANDOR CORTEZ, is a 62 M who presents to e office today for for evaluation and left lower quadrant and left groin pain. This is been going off and on for the last 6 months. It is worse with lifting worse with urination he feels a lumpy area in the left groin area. He has not noticed any change in his bowel or bladder habits he has a known history of diverticulosis but he has never had an episode of diverticulitis that he can recall. He state s that when he eats fruit with small seeds he has rectal bleeding. He has a regular staple of popcorn and not every night. He has not been having any rectal bleeding. ROS General General: No weight c hange, appetite, fatigue, colon cancer, breast cancer or weakness HEENT HEENT: Yes eye injury; no difficulty swallowing, eye surgery, swollen glands or hoarseness Endo Endocrine: No thyroid disease, dionisio betes mellitus, thyroid cancer, Hair loss, heat intolerance or cold intolerance Musc Musculoskeletal: Yes back problems; no arthritis, rheumatoid arthritis, gout or joint pain Cardio Cardiovascular: Yes high blood pressure; no murmur, pacemaker, heart disease, atrial fibrillation, heart attack, heart stent, palpitations, shortness of breat with exertion or chest pain Resp Respiratory: No shortness of breath, No sleep apnea, No cough, No COPD, No asthma, No emphysema, No wheezing Gastro Gastrointestinal: No abdominal pain, No nausea or vomiting, No diarrhea, No constipation, No blood in stool, Yes ac id reflux, No hemorrhoids, No ulcers, No gallbladder problem, No black,tarry stools Rick Hematologic: No blood thinners, No blood disorders, No bleeding, No anemia, No blood clots Neuro Neurologic: No w eakness Exam Const General: well developed, no acute distress, well hydrated Orientation: oriented to person, oriented to place, oriented to time [facility] Head: normocephalic, atraumatic Ears: external e ars normal Mouth: moist mucous membranes Eyes Sclera: sclerae normal Pupils: normal by confrontation Neck Neck: no lymphadenopathy noted Neck mass: No Thyroid: symmetrical, thyroid normal Chest Chest pa lpation AND inspection: normal inspection of the chest Resp Effort AND Inspection: normal respiratory effort Auscultation: clear to auscultation bilaterally Percussion: percussion normal Cardio Rate: re gular rate Rhythm: regular rhythm Heart Sounds: no murmurs GI Palpation: soft, tender in the LLQ, no masses, no hepatosplenomegaly Rectal Exam: other Other: A Hernia the left side is palpate on exam. Re ctal exam deferred. When I have him lie down he has significant tenderness in the left lower quadrant. And this is without the hernia being out. It does raise the question of whether or not this could be diverticular in nature Extrem General: no clubbing, cyanosis or edema, normal to inspection Assessment AND Plan Problems 1. Left lower quadrant abdominal pain of unknown etiology R10.32 2. Left ing uinal hernia K40.90 Plan I think we need to get a CAT scan of the abdomen and pelvis to make sure that this is not diverticulitis. His hernia is present but it is not big in his pain while lying down t his does not strike me as being hernia related but more intra-abdominal related. Prior to him going to surgery I think it is important that we have the CAT scan to make sure we are not missing a diagnos is of diverticulitis. Orders Orders: Coding Level of Care Code Off vis,new,level 3 Diagnoses Left lower quadrant abdominal pain of unknown etiology R10.32 Left inguinal hernia K40.90 12/29/17 144 0 <Electronically signed by Samir Kim MD> Date Samir Kim MD Cosigner Signature: Date (if applicable) CC: Darcie Daly NP 22-May-2017 Re-Evaluation - PT (1) Result: Comments: See Note; NOTES: [facility] [address] [place] [address]. [address] [place], [place] [address] Fax [facility] MR#: [id number] Acct: [id number] Name: SANDOR CORTEZ Rep #: [id number] : 1955 61 From: Giovana Ahumada PT, Cert. MDT Referring DrYoan: Darcie Daly ORDER SELECTOR Status: REG RCR Ins urance: [facility] [id number] SELF PAY INSURANCE Darcie Daly NP.LEIGHA It has been my pleasure to treat SANDOR CORTEZ over the last 10 visits for Sciatica. Please see the progress note below for an update on the physical therapy plan of care! Subjective: PATIENT REPORTS HE NEVER DID GET AN INJECTION. THERAPY HAS RELEAVED THE PRESSURE AND HE IS ALMOST A 100% BETTER. APPOINTMENT WITH DR. TA THIS WEEK AND HE RECOMMENDED INJECTIONS HE JUST HAS TO SCHEDULE IT IF HE WANTS IT. HE HAS ALSO SUBMITTED HIS CASE TO DR. MCKENNA AT [facility] AND IS AWAITING A RESPONSE FROM THEM. PATIENT REPORTS T HAT AT THIS POINT HIS BACK IS NOT LIMITING ANY OF HIS NORMAL ACTIVITIES. HE FEELS HIS ACTIVITIES ARE UNRESTRICTED AT THIS TIME. Objective/Function: THIS PATIENT AMBULATES INDEP'LY INTO PT WITH NO GROSS DEVIATIONS NOTED. HE IS ABLE TO TRANSFER IND'LY FROM SIT TO STAND WITHOUT UE ASSIST. NE DENIES PAIN WITH ANY TESTING TODAY. LUMBAR MVMT LOSS: FLEX - NIL, EXT - MOD, WAYNE SG - MIN TO MOD. AGAIN - TESTING DOES NOT PROVOKE PAIN. WAYNE LE STRENGTH IS 5/5 WITH MMT EXCEPT HIPS GRADED 4/5 AND CORE STRENGTH IS FAIR. WAYNE LE DTR'S ARE 2/3. WAYNE LE LIGHT TOUCH SENSATION IS INTACT AND SYMMETRICAL AND WAYNE LE DURAL SIG NS ARE NEGATIVE. HE DOES STILL HAVE DECREASED PROPER HEP KNOWLEGE BUT BECOMING INDEP WITH A POOL PROGRAM TO THE POINT THAT HE CAN TRANSITION TO INDEPENDENCE AT PLACE OF HIS CHOICE (DAYS INN) WHILE DECRE ASE AQUATIC PT TO ONCE A WEEK. DECREASED KNOWLEGE OF PROPER BODY MECHANICS. Plan Plan: RECOMMEND CONTINUED PT 1X/WEEK IN THE POOL AND 1X/WEEK ON LAND TO CONTINUE TO PROGRESS TOWARD SAME GOALS. PATIENT IS AGREEABLE WITH THIS POC Goals Goal 1:: Pt. to be I with HEP. Goal Time Frame: 4-6 Weeks Goal 2:: STG: Pt. to have decreased pain at rest to 0-2/10 in lumbar spine allowing for increased quality of l francisco. Goal Time Frame: 2-4 Weeks Goal 3:: LTG: Pt. to ambulate and complete all ADLs 0-2/10 allowing increasd tolerance to all functional mobility and promote healthy life style. Goal Time Frame: 4-6 Wee ks Goal 4:: LTG: Pt. to be educated in all prophalxis techniques to reduce risk for injury occuring in future. Goal Time Frame: 4-6 Weeks Goal 5:: LTG: Pt. to have increased lumbar ROM by 25% in all dir ections without increase in symptoms. Goal Time Frame: 4-6 Weeks Goal 6:: LTG: Pt. to have increased core/hip strength by 1/2 grade to reduce stress applied to lumbar spine with all activities. Goal Micky e Frame: 4-6 Weeks Anticipated Interventions Patient/Client Instruction: Educate patient on: Condition, Plan of Care, Risk Factors, Benefits of Fitness Program For the Purpose of:: To improve safety, T o improve health and function, To foster healthy habits, To improve decision making, To facilitate caregiver knowledge, To improve self management, To prevent re- injury, To improve ability to perform ta sks related to life management, To improve tolerance to ADL's Therapeutic Exercise to Include: Strength training, Power training, Endurance training, Flexibilty training, In an aquatic setting& amp;#34;, Passive ROM, Active ROM, Dynamic Lumbar Stabilization, Margret Exercises, Scapular Strength/Stabilization For the Purpose of:: To decrease pain, To decrease swelling/inflammation, To increase ROM, To improve nutrient delivery to tissue, To increase oxygenation perfusion, To improve muscle performance and motor function, To improve ability to perform ADL's, To increase tolerance to activity/ condition/position, To improve health of tissue, To decrease soft tissue restriction, To increase flexibility/ROM Manual Therapy Techniques to Include: Massage, Mobilization, Soft tissue mobilization Fo r the Purpose of:: To decrease pain, To increase ROM, To improve nutrient delivery to tissue, To increase oxygenation perfusion, To improve muscle performance and motor function, To improve ability to p erform ADL's IF ES: Yes Cryotherapy (ice pack, ice massage): Yes Ultrasound (thermal/non thermal): Yes For the Purpose of:: To decrease pain, To decrease swelling/inflammation, To increase ROM Please do not hesitate to contact me at [phone] by phone or if you have questions or concerns regarding this new plan of care! Sincerely, Giovana Ahumada <Electronically signed b y Giovana Ahumada PT, Cert. MDT> 05/22/17 1238 CC: Darcie Daly NP CORTES Signed For Medicare only, by signing this I certify the plan of care. Physicians Signature Date -Apr-2017 Spine Lumbar (Routine) Result: Comments: See Note; NOTES: [facility] Imaging Services [address] [place] [address] Spine Lumbar (Routine) MR#: [id number] Acct: [id number] Name: SANDOR CORTEZ Rep #: [id number] : 1955 M 61 From: Aquiles Garcia MD PCP: Darcie Daly NP Status: REG CLI Study: Spine Lumbar (Routine) Date of Exam: 05/03/17 Exam# [id number] Ordering Dr: Darcie Daly STUDY: MRI LUMBAR SP INE WITHOUT CONTRAST REASON FOR EXAM: Male, 61 years old. Left leg pain and low back pain TECHNIQUE: Standardized fat and water weighted pulse sequences were obtained in the sagittal and axial planes. COMPARISON: None FINDINGS: Grade 1 anterolisthesis of L5 on S1 with bilateral L5 level spondylolysis. No evidence for cord edema. Conus terminus or possibly L1 le debi. Cauda equina nerve roots follow spinal curvature. Minimal wedging of the mid substance of the lumbar vertebra. Disc desiccation at L2-L3, L3-L4 and L5- S1 levels with mild loss of disc height. Endp late degenerative changes at L2-L3, L3-L4 and L5-S1 levels. Anterior and posterior osteophytic spurring. Hypertrophy of this process processes. Heterogeneous marrow signal intensity. Multiple scattered vertebral body hemangiomas Level by level analysis: L1-L2 level: Mild facet hypertrophy ligamentum flavum thickening and broad-based disc bulge without significant central canal stenosis or neural fora nadya narrowing L2-L3 level: Bilateral facet hypertrophy ligamentum flavum thickening and broad-based disc bulge with a superimposed left subarticular and foraminal level disc extrusion and cephalad mi gration resulting in mild deformity of the left ventrolateral thecal sac and moderate left-sided neural foraminal narrowing and mild right-sided neural foraminal narrowing. Approximation/impingement of the left L2 nerve suspected L3-L4 level: Bilateral facet hypertrophy ligamentum flavum thickening and broad-based disc bulge resulting in moderate bilateral neural foraminal narrowing without significa nt central canal stenosis L4-L5 level: Bilateral facet hypertrophy ligamentum flavum thickening and broad-based disc bulge resulting in moderate right-sided and moderate left-sided neural foraminal blake rowing with marginal osteophytes approximating the right exiting L4 nerve root. L5-S1 level: Bilateral facet hypertrophy with grade 1 anterolisthesis of L5 on S1 and a pseudodisc with a superimposed sm all central disc protrusion resulting in mild flattening of the ventral thecal sac [id number] bilateral neural foraminal narrowing. No paraspinous soft tissue mass or fluid collections. IMPRESSI ON: Grade 1 anterolisthesis of L5 on S1 with L5 level bilateral spondylolysis and spondylotic changes predominating at L2-L3 level. Electronically Signed: Aquiles Garcia, at 10:59 EST Tel , Service support , [phone] MRI/Spine Lumbar (Routine) CC: Darcie Daly NP Early Breastfeeding Care Specialist: Signed 03-May-2017 Spine Lumbar (Routine) Result: Comments: See Note; NOTES: [facility] Imaging Services [address] [place] [address] Spine Lumbar (Routine) MR#: [id number] Acct: [id number] Name: SANDOR CORTEZ Rep #: [id number] : 1955 M 61 From: Aquiles Garcia MD PCP: Darcie Daly NP Status: REG CLI Study: Spine Lumbar (Routine) Date of Exam: 05/03/17 Exam# [id number] Ordering Dr: Darcie Daly ADDENDUM by Aquiles cisneros MD on 05/10/17 at 0941 MRI/Spine Lumbar (Routine) 05/10/17 0948 Date cc: Darcie Daly NP * Signed ADDENDUM by Aquiles Garcia MD on 05/10/17 at 0941 ADDENDUM IMPRESSION: Grade 1 anterolisthesis of L5 on S1 with L5 level bilateral spondylolysis and spondylotic changes and disc herniation predominating at L2-L3 level. Please see above level by level complete analysis. No evidence for acute lumbar spine fractures. Electronically Signed: Aquiles Garcia, at 9:41 EST Tel , Service support , 05/10/17940 Date cc: Darcie Daly NP * Signed STUDY: MRI LUMBAR SPINE WITHOUT CONTRAST REASON FOR EXAM: Male, 61 years old. Left leg pain and low back pain TECHNIQUE: Standardized fat and water weighted pulse sequences were obtained in the sagittal and axial planes. COMPARISON: None FINDINGS: Grade 1 anterolisthesis of L5 on S1 with bilateral L5 level spondylolysis. No evidence for cord edema. Conus terminus or possibly L1 level. Cauda equina nerve roots fol low spinal curvature. Minimal wedging of the mid substance of the lumbar vertebra. Disc desiccation at L2-L3, L3-L4 and L5-S1 levels with mild loss of disc height. Endplate degenerative changes at L2-L 3, L3-L4 and L5-S1 levels. Anterior and posterior osteophytic spurring. Hypertrophy of this process processes. Heterogeneous marrow signal intensity. Multiple scattered vertebral body hemangiomas Level by level analysis: L1-L2 level: Mild facet hypertrophy ligamentum flavum thickening and broad-based disc bulge without significant central canal stenosis or neural foraminal narrowing L2-L3 level: Wayne ateral facet hypertrophy ligamentum flavum thickening and broad-based disc bulge with a superimposed left subarticular and foraminal level disc extrusion and cephalad migration resulting in mild deformi ty of the left ventrolateral thecal sac and moderate left-sided neural foraminal narrowing and mild right-sided neural foraminal narrowing. Approximation/impingement of the left L2 nerve suspected L3-L 4 level: Bilateral facet hypertrophy ligamentum flavum thickening and broad-based disc bulge resulting in moderate bilateral neural foraminal narrowing without significant central canal stenosis L4-L5 level: Bilateral facet hypertrophy ligamentum flavum thickening and broad-based disc bulge resulting in moderate right-sided and moderate left-sided neural foraminal narrowing with marginal osteophytes approximating the right exiting L4 nerve root. L5-S1 level: Bilateral facet hypertrophy with grade 1 anterolisthesis of L5 on S1 and a pseudodisc with a superimposed small central disc protrusion resul ting in mild flattening of the ventral thecal sac [id number] bilateral neural foraminal narrowing. No paraspinous soft tissue mass or fluid collections. IMPRESSION: Grade 1 anterolisthesis of L5 on S1 with L5 level bilateral spondylolysis and spondylotic changes predominating at L2-L3 level. Electronically Signed: Aquiles Garcia, at 10:59 EST Tel , Service support [phone], MRI/Spine Lumbar (Routine) CC: Darcie Daly NP Early Breastfeeding Care Specialist: Signed 02-May-2017 Orbits for Foreign Body Result: Comments: See Note; NOTES: [facility] Imaging Services [address] [place] [id number] Orbits for Foreign Body MR#: [id number] Acct: [id number] Name: SANDOR CORTEZ Rep #: [id number] : 1955 M 61 From: Matt Nixon MD PCP: Darcie Daly NP Status: REG CLI Study: Orbits for Foreign Body Date of Exam: 05/03/17 Exam# [id number] Ordering Dr: Darcie Daly STUDY: TO THE ORBITS, RIGHT REASON FOR EXAM: Male, 61 years old. MRI clearance COMPARISON: None. FINDINGS: 2 views demonstrate no metallic orbital foreign body. RAD/Orbits for Foreign Body IMPRESSION: No metallic orbital foreign body. Electronically Signed: Matt Nixon MD at 7:46 EST Tel , Service support , CC: Darcie Daly NP Early Breastfeeding Care Specialist: Signed 01-May-2017 Inital Evaluation (1) - PT Result: Comments: See Note; NOTES: [facility] Physical [facility] [address] [place] [address] Fax REHABILITATION SERVICES INITIAL EVALUATION MR#: [id number] Acct: [id number] Name: SANDOR CORTEZ Rep #: [id number] : 1955 61 From: Quang Parra DPT Referring Dr.: Darcie Daly NP Status: REG RCR Insurance: [employer] [place] [id number] SELF PAY INSURANCE Patient's Visit Information SANDOR CORTEZ is a 61 year old M referred to Physical Therapy by Darcie Daly NP.LEIGHA with a diagnosis of Sciatica. Date of Evaluation: 04/28 Physical Therapist: Quang Parra - Visit Plan Frequency: 2x /Week Plan: Start with distraction in aquatic setting, light TA contraction, general mobility in gravity reduce eviornment. Once sympto ms has reduce introduce light lumbar ext mobility. If progressing well, progress to land with focus body mechanics, lumbar ext tolerance (light), core stability (light). May use IFC/US for modalities as needed. - Subjective Subjective: Pt. is here today for his initial evaluation with diagnosis of sciatica down his L side. Pt. reports having increased pain for 6 days. Pt. reports being over to throw away paper into his recycling can. Pt. reports having re occuring back pain 1- 2 per year, but not this date. Pt. is now having increased pain to 7-8/10 pain currently, but was so bad over the weekend, it was an 16. Pt did have an xray which showed arthritic changes, but no fx. Pt. reports being in good health prior to this injury and is no retired. He denies changes in B/B, but is h aving numbnes to his lateral L knee. Pt. denies weakness, but I feel like I am walking weird. He reports increased pain in the mornings, that decreases as he moves. Increased pain with sitting, walking is better, Pt. reports enjying playing golf, fishing, and plans on travelling and camping. He is hopeful to reduce symptoms in order to get back to all functional and recreational acti vities without limitations. He was given steroid, but was able to take due to pain. Spouse went to physican during evaluation and pt. was perscribed muscle relaxor. Pt's spouse also reports physician wa s looking into MRI for pt. - Pain LLE Pain Intensity (Out of 10): 5 Pain Intensity Range: 2, 6 Comment: lateral numbness. - Objective POSTURE: Pt. has flexed posture, fwrd lean an d to R side. Pt. has increased pain with attempts to stand with erect posture. Pt. has rounded shoulders and decreased lumbar lordosis. PALPATION: Pt. has increased pain with palpation to lumbar erector spinea bilaterally, muscle tone noted as well. pt. has no pain throughout pelvic region and gluteal region. NEUROLOGICAL: Pt. has normal 2+ achilles and patellar DTR. Pt. does have marked weakness with R great toe ext. Pt. also has decreased sensation to light touch of proximal and disal LLE at lateral aspect. Pt. is able to rise on heels, but uses balance aid to complete. ROM: LUMBAR SPINE- flexion mod/max loss increase NW, ext max loss (unable to achieve erect posture), SB right min/mod loss incerase NW, SB L mod/max loss increase NW, rotation R mod loss increase NW, rotation L max loss increase NW. Pt. has normal hip ROM bilaterally, tight HS noted bilat. MMT- RLE- ankle 5/5 throughout; knee- ext 5/5, flexion 5/5; hip- flexion 4/5 (increase LBP), abd 4/5 increase NW. Great toe ext 5/5, flexion 5/5. LLE- ankle 5/5 throughout; great toe ext 5/5, flexion 5/5; knee- ext 5-/5, flexion 5-/5; hip- flexion 4/5 increase NW LBP, abd 4/5 increase NW LBP. Core strenth- poor increase NW. GAIT: Pt. ambula annette with flexed posture and R wt. shift. Pt. has increased difficulty with getting erect posture. Pt. has increased pain with all L stance phase of gait, shots pain rigth down my leg from my ba ck. DNT stairs this date. - Special Tests L/S Slump test left side: Positive L/S Slump test right side: Negative L/S Left Straight Leg Raise: Positive L/S Right Straight Leg Raise: Negative Marshall mbar Standing: Flexion - Mechanical Response: No effect Lumbar Standing: Flexion - Symptoms During Testing: Increases Lumbar Standing: Flexion - Symptoms After Testing: No worse Lumbar Standing: Extensi on - Mechanical Response: No effect Lumbar Standing: Extension - Symptoms During Testing: Increases Lumbar Standing: Extension - Symptoms After Testing: No worse Lumbar Standing: Right Side Glides - Mec hanical Response: No effect Lumbar Standing: Right Side [place] - Symptoms During Testing: Increases Lumbar Standing: Right Side [place] - Symptoms After Testing: No worse Lumbar Standing: Left Side [place] - Mechanical Response: No effect Lumbar Standing: Left Side [place] - Symptoms During Testing: Increases Lumbar Standing: Left Side [place] - Symptoms After Testing: No worse Comments:: Pt. unable to get int o position of prone secondary to increased pain Lumbar Static: Slouched Sit - Mechanical Response: No effect Lumbar Static: Slouched Sit - Symptoms During Testing: Increases Lumbar Static: Slouched Sit - Symptoms After Testing: No worse Lumbar Static: Sitting Erect - Mechanical Response: No effect Lumbar Static: Sitting Erect - Symptoms During Testing: Increases Lumbar Static: Sitting Erect - Symptoms After Testing: No worse Comments:: Pt. unable to get in prone positioning secondary to increased pain - Goals Goal 1:: Pt. to be I with HEP. Goal Time Frame: 4-6 Weeks Goal 2:: STG: Pt. to have decrea sed pain at rest to 0-2/10 in lumbar spine allowing for increased quality of life. Goal Time Frame: 2-4 Weeks Goal 3:: LTG: Pt. to ambulate and complete all ADLs 0-2/10 allowing increasd tolerance to al l functional mobility and promote healthy life style. Goal Time Frame: 4-6 Weeks Goal 4:: LTG: Pt. to be educated in all prophalxis techniques to reduce risk for injury occuring in future. Goal Time Fra me: 4-6 Weeks Goal 5:: LTG: Pt. to have increased lumbar ROM by 25% in all directions without increase in symptoms. Goal Time Frame: 4-6 Weeks Goal 6:: LTG: Pt. to have increased core/hip strength by 1/ 2 grade to reduce stress applied to lumbar spine with all activities. Goal Time Frame: 4-6 Weeks - Rehabilitation Potential Physical Therapy Diagnosis: Pt. has signs and symptoms consistent with LBP wi th possible discogenic in nature. Pt. has positive dural testing with staight leg test, and slump test. Pt. also had an event Rehabilitation Potential: Fair - Anticipated Interventions Patient/Client I nstruction: Educate patient on: Condition, Plan of Care, Risk Factors, Benefits of Fitness Program For the Purpose of:: To improve safety, To improve health and function, To foster healthy habits, To im prove decision making, To facilitate caregiver knowledge, To improve self management, To prevent re-injury, To improve ability to perform tasks related to life management, To improve tolerance to ADL's Therapeutic Exercise to Include: Strength training, Power training, Endurance training, Flexibilty training, In an aquatic setting, Passive ROM, Active ROM, Dynamic Lumbar Stabilizatio n, Margret Exercises, Scapular Strength/Stabilization For the Purpose of:: To decrease pain, To decrease swelling/inflammation, To increase ROM, To improve nutrient delivery to tissue, To increase oxyg enation perfusion, To improve muscle performance and motor function, To improve ability to perform ADL's, To increase tolerance to activity/condition/position, To improve health of tissue, To decrease s oft tissue restriction, To increase flexibility/ROM Manual Therapy Techniques to Include: Massage, Mobilization, Soft tissue mobilization For the Purpose of:: To decrease pain, To increase ROM, To impro ve nutrient delivery to tissue, To increase oxygenation perfusion, To improve muscle performance and motor function, To improve ability to perform ADL's IF ES: Yes Cryotherapy (ice pack, ice massage): Y es Ultrasound (thermal/non thermal): Yes For the Purpose of:: To decrease pain, To decrease swelling/inflammation, To increase ROM Thank you for the opportunity to evaluate your patient. For Medica re and Medicare HMO plans, please review the plan of care and approve it. It will need to be FAXED BACK to us at [phone] for Medicare purposes. Please let me know if there are questions or concer ns regarding this plan of care. Physician Signature: Date: <Electronically signed by Quang Parra DPT> 05/01/17 0849 C C: Darcie Daly NP CLS Signed For Medicare only, by signing this I certify the plan of care. Physicians Signature Date 25-Apr-2017 L/S Spine Min 4 Views Result: Comments: See Note; NOTES: [facility] Imaging Services [address] [place] [address] L/S Spine Min 4 Views MR#: [id number] Acct: [id number] Name: SANDOR CORTEZ Rep #: [id number] : 1955 M 61 From: Sreedhar Corrae MD PCP: Darcie Daly NP Status: REG CLI Study: L/S Spine Min 4 Views Date of Exam: 04/25/17 Exam# [id number] Ordering Dr: Darcie Daly STUDY: X-RAY - MARSHALL MBAR SPINE REASON FOR EXAM: Male, 61 years old. 2 day history of extreme low back pain. TECHNIQUE: 5 view(s) of the lumbar spine were obtained including oblique views. COMPARISON: None FINDINGS: Normal lumbar lordosis. Minimal dextroscoliosis. There is a normal alignment of the vertebrae. Disc space narrowing and spondylosis at the L3-L4 level. Normal disc spac e heights. Facet joint osteoarthritis. The soft tissue structures are unremarkable. RAD/L/S Spine Min 4 Views IMPRESSION: Degenerative changes o f the spine, as detailed above. Electronically Signed: Sreedhar Correa MD at 14:50 EST Tel [phone], Service support , CC: Darcie Daly NP Early Breastfeeding Care Specialist: Signed 18-Jul-2015 ELECTROCARDIOGRAM, COMPLETE (ECG) ([id number]) Comments: see scanned document of test done to see results reviewed today with patient Result: [MEASUREMENTS ANALYSIS] Date of Test: 07/18/2015 16:02:16; Heart Rate: 60; CT Interval: 138; QRS: 102; QT Interval: 428; Corrected QT Interval (QTc): 428; P Wave [place]: 30; QRS Wave [place]: 31; T Wave [place] : 20; Blood Pressure: 124/86 [ECG DIAGNOSTIC STATEMENTS] Date of Test: 07/18/2015 16:02:16; Summary: Sinus Rhythm Voltage criteria for LVH (R(V6) exceeds 2.26 mV) -Voltage criteria w/o ST/T abnormality may be normal. 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 ABNORMAL Immunization Name Dates Details Pneumococcal (2 years and up) on: 28-Feb-2009 Family History Unknown Family Member Name Dates Details Brother 1 Comments: prostate cancer Status: Active Father Comments: HTN, heart disease, [place] 60 yrs - smoker Status: Active HTN (Renamed from Mother) Status: Active Sister 1 Comments: basal cell cancer Status: Active Social History Name Dates Details Alcohol Use Comments: Occasional alcohol use Status: Active Caffeine Use Comments: 2-3 cups coffee qd Status: Active Current Work/Study Status Comments: Full-time, production assistant Status: Active Exercise History Comments: Light Status: Active Living Situation Comments: , Lives with spouse Status: Active No Drug Use Status: Active Non Smoker/No Tobacco Use Status: Active Tobacco use: Former smoker. Status: Active Smoking Status Name Dates Details Former smoker Vital Signs Date Test Result Details :30 Temperature 98.2 f Comments: Method: Temporal Pulse 70 /min Comments: Pattern: Regular Respiration Rate 17 /min Comments: Pattern: Unlabored O2 SAT 95 % Comments: Room air BP Systolic 110 mm[Hg] Comments: Patient Position: Sitting; Cuff Location: Left Arm; Cuff Size: Standard BP Diastolic 80 mm[Hg] Comments: Patient Position: Sitting; Cuff Location: Left Arm; Cuff Size: Standard Weight 215.25 lb Height 71 in Body Mass Index Calculated 30.02 kg/m2 Body Surface Area Calculated 2.18 m2 :30 Pulse 63 /min Comments: Pattern: Regular Respiration Rate 16 /min Comments: Pattern: Unlabored O2 SAT 94 % Comments: Room air BP Systolic 116 mm[Hg] Comments: Patient Position: Sitting; Cuff Location: Left Arm; Cuff Size: Standard BP Diastolic 78 mm[Hg] Comments: Patient Position: Sitting; Cuff Location: Left Arm; Cuff Size: Standard Weight 222 lb Height 71 in Body Mass Index Calculated 30.96 kg/m2 Body Surface Area Calculated 2.2 m2 :17 Pulse 82 /min Comments: Pattern: Regular Respiration Rate 18 /min Comments: Pattern: Unlabored O2 SAT 97 % Comments: Room air BP Systolic 118 mm[Hg] Comments: Patient Position: Sitting; Cuff Location: Left Arm; Cuff Size: Standard BP Diastolic 88 mm[Hg] Comments: Patient Position: Sitting; Cuff Location: Left Arm; Cuff Size: Standard Weight 222 lb Height 71 in Body Mass Index Calculated 30.96 kg/m2 Body Surface Area Calculated 2.2 m2 :43 Temperature 97.6 f Pulse 77 /min Comments: Pattern: Regular Respiration Rate 16 /min Comments: Pattern: Unlabored O2 SAT 96 % Comments: Room air BP Systolic 132 mm[Hg] Comments: Patient Position: Sitting; Cuff Location: Left Arm; Cuff Size: Standard BP Diastolic 84 mm[Hg] Comments: Patient Position: Sitting; Cuff Location: Left Arm; Cuff Size: Standard Weight 222 lb Height 71 in Body Mass Index Calculated 30.96 kg/m2 Body Surface Area Calculated 2.2 m2 :24 Temperature 98.1 f Pulse 74 /min Comments: Pattern: Regular Respiration Rate 18 /min Comments: Pattern: Unlabored O2 SAT 96 % Comments: Room air BP Systolic 120 mm[Hg] Comments: Patient Position: Sitting; Cuff Location: Left Arm; Cuff Size: Standard BP Diastolic 78 mm[Hg] Comments: Patient Position: Sitting; Cuff Location: Left Arm; Cuff Size: Standard Weight 229 lb Height 71 in Body Mass Index Calculated 31.94 kg/m2 Body Surface Area Calculated 2.23 m2 :35 Temperature 97.7 f Comments: Method: Temporal Pulse 68 /min Comments: Pattern: Regular Respiration Rate 20 /min Comments: Pattern: Unlabored O2 SAT 97 % Comments: Room air BP Systolic 120 mm[Hg] Comments: Patient Position: Sitting; Cuff Location: Left Arm; Cuff Size: Large BP Diastolic 80 mm[Hg] Comments: Patient Position: Sitting; Cuff Location: Left Arm; Cuff Size: Large Weight 213 lb Height 71 in Body Mass Index Calculated 29.71 kg/m2 Body Surface Area Calculated 2.17 m2 :24 Temperature 97.2 f Pulse 18 /min Comments: Pattern: Regular Respiration Rate 16 /min Comments: Pattern: Unlabored O2 SAT 97 % Comments: Room air BP Systolic 140 mm[Hg] Comments: Patient Position: Sitting; Cuff Location: Left Arm; Cuff Size: Standard BP Diastolic 86 mm[Hg] Comments: Patient Position: Sitting; Cuff Location: Left Arm; Cuff Size: Standard Weight 213 lb Height 71 in Body Mass Index Calculated 29.71 kg/m2 Body Surface Area Calculated 2.17 m2 :11 Temperature 97.6 f Comments: Method: Temporal Pulse 68 /min Comments: Pattern: Regular Respiration Rate 18 /min Comments: Pattern: Unlabored O2 SAT 97 % Comments: Room air BP Systolic 124 mm[Hg] Comments: Patient Position: Sitting; Cuff Location: Left Arm; Cuff Size: Standard BP Diastolic 86 mm[Hg] Comments: Patient Position: Sitting; Cuff Location: Left Arm; Cuff Size: Standard Weight 213 lb Height 71 in Body Mass Index Calculated 29.71 kg/m2 Body Surface Area Calculated 2.17 m2 :07 Temperature 97.4 f Comments: Method: Temporal Pulse 60 /min Comments: Pattern: Regular Respiration Rate 17 /min Comments: Pattern: Unlabored O2 SAT 98 % Comments: Room air BP Systolic 128 mm[Hg] Comments: Patient Position: Sitting; Cuff Location: Left Arm; Cuff Size: Standard BP Diastolic 78 mm[Hg] Comments: Patient Position: Sitting; Cuff Location: Left Arm; Cuff Size: Standard Weight 213.8 lb Height 71 in Body Mass Index Calculated 29.82 kg/m2 Body Surface Area Calculated 2.17 m2 :31 Temperature 97.6 f Comments: Method: Oral Pulse 68 /min Comments: Pattern: Regular Respiration Rate 18 /min Comments: Pattern: Unlabored BP Systolic 120 mm[Hg] Comments: Patient Position: Sitting; Cuff Location: Left Arm; Cuff Size: Standard BP Diastolic 78 mm[Hg] Comments: Patient Position: Sitting; Cuff Location: Left Arm; Cuff Size: Standard Weight 201 lb Height 71 in Body Mass Index Calculated 28.03 kg/m2 Body Surface Area Calculated 2.11 m2 :04 Pulse 64 /min Comments: Pattern: Regular Respiration Rate 18 /min Comments: Pattern: Unlabored BP Systolic 120 mm[Hg] Comments: Patient Position: Sitting; Cuff Location: Left Arm; Cuff Size: Standard BP Diastolic 90 mm[Hg] Comments: Patient Position: Sitting; Cuff Location: Left Arm; Cuff Size: Standard Weight 217 lb Height 72 in Body Mass Index Calculated 29.43 kg/m2 Body Surface Area Calculated 2.21 m2 :11 Temperature 97.6 f Comments: Method: Oral Pulse 64 /min Comments: Pattern: Regular Respiration Rate 18 /min Comments: Pattern: Unlabored BP Systolic 118 mm[Hg] Comments: Patient Position: Sitting; Cuff Location: Left Arm; Cuff Size: Standard BP Diastolic 78 mm[Hg] Comments: Patient Position: Sitting; Cuff Location: Left Arm; Cuff Size: Standard Weight 218 lb Height 72 in Body Mass Index Calculated 29.57 kg/m2 Body Surface Area Calculated 2.21 m2 :58 Temperature 97.6 f Comments: Method: Oral Pulse 68 /min Comments: Pattern: Regular Respiration Rate 18 /min Comments: Pattern: Unlabored BP Systolic 118 mm[Hg] Comments: Patient Position: Sitting; Cuff Location: Left Arm; Cuff Size: Standard BP Diastolic 76 mm[Hg] Comments: Patient Position: Sitting; Cuff Location: Left Arm; Cuff Size: Standard Weight 206 lb Height 72 in Body Mass Index Calculated 27.94 kg/m2 Body Surface Area Calculated 2.16 m2 :04 Pulse 68 /min Comments: Pattern: Regular Respiration Rate 16 /min Comments: Pattern: Unlabored BP Systolic 118 mm[Hg] Comments: Patient Position: Sitting; Cuff Location: Left Arm; Cuff Size: Standard BP Diastolic 78 mm[Hg] Comments: Patient Position: Sitting; Cuff Location: Left Arm; Cuff Size: Standard Weight 233 lb Height 0 in Head Circumference 0.00 cm :13 Temperature 98.5 f Comments: Method: Oral Pulse 80 /min Comments: Pattern: Regular Respiration Rate 18 /min Comments: Pattern: Unlabored O2 SAT 97 % Comments: Room air BP Systolic 122 mm[Hg] Comments: Patient Position: Sitting; Cuff Location: Left Arm; Cuff Size: Large BP Diastolic 84 mm[Hg] Comments: Patient Position: Sitting; Cuff Location: Left Arm; Cuff Size: Large Weight 0 lb Height 0 in Head Circumference 0.00 cm :42 Pulse 68 /min Comments: Pattern: Regular Respiration Rate 16 /min Comments: Pattern: Unlabored BP Systolic 122 mm[Hg] Comments: Patient Position: Sitting; Cuff Location: Left Arm; Cuff Size: Standard BP Diastolic 80 mm[Hg] Comments: Patient Position: Sitting; Cuff Location: Left Arm; Cuff Size: Standard Weight 228 lb Height 0 in Head Circumference 0.00 cm :31 Temperature 101.7 f Comments: Method: Oral Pulse 88 /min Comments: Pattern: Regular Respiration Rate 20 /min Comments: Pattern: Unlabored BP Systolic 120 mm[Hg] Comments: Patient Position: Sitting; Cuff Location: Left Arm; Cuff Size: Standard BP Diastolic 82 mm[Hg] Comments: Patient Position: Sitting; Cuff Location: Left Arm; Cuff Size: Standard Weight 225.0313 lb Height 0 in Head Circumference 0.00 cm :05 Temperature 98.6 f Comments: Method: Oral Pulse 64 /min Comments: Pattern: Regular Respiration Rate 20 /min Comments: Pattern: Unlabored BP Systolic 102 mm[Hg] Comments: Patient Position: Sitting; Cuff Location: Left Arm; Cuff Size: Standard BP Diastolic 76 mm[Hg] Comments: Patient Position: Sitting; Cuff Location: Left Arm; Cuff Size: Standard Weight 225.0313 lb Height 0 in Head Circumference 0.00 cm Results Date Description Value Details 88-Hcf-09206:06 CREATININE FINGERSTICK Comments: [facility] [id number] [place] [address] EGFR WB > 60.0000 mL/min (Normal) CREATININE WB 1.2 mg/dL (Normal) Range: 0.70-1.30 50-Pru-168785:25 PSA (PROSTATE SPECIFIC Comments: PATIENT NOT FASTINGPERFORMED BY: PúbliKo [facility] [id number] ANTIGEN) (V76.44) Prostate Specific Ag, 0.8 ng/mL (Normal) Range: 0.0-4.0 Serum Comments: Sw[employer] methodology. .According to the [place] [employer], Serum PSA shoulddecrease and remain at undetectable levels after radicalprostatectomy. The AUA defines biochemical recurrence as an initialPSA value 0.2 ng/mL or greater followed by a subsequent confirmatoryPSA value 0.2 ng/mL or greater.Values obtained with d ifferent assay methods or kits cannot be usedinterchangeably. Results cannot be interpreted as absolute evidenceof the presence or absence of malignant disease. [id number] MICROALBUMIN: CREATININE RATIO Comments: PATIENT NOT FASTINGPERFORMED BY: [facility]bliKo [facility] HospitalGet[facility] RewardsD[facility] [id number] ([id number]) AND ([id number]) Microalb/Creat Ratio <3.0 {mg/g_creat} (Normal) Range: 0.0-30.0 Microalbumin, Urine <3.0 ug/mL (Normal) Creatinine, Urine 100.5 mg/dL (Normal) 44-Ggm-[id number]:25 URINALYSIS ([id number]) Comments: PATIENT NOT FASTINGPERFORMED BY: PúbliKo [facility] [id number] Microscopic Examination MICNIP (Normal) Comments: Microscopic not indicated and not performed. Nitrite, Urine Negative (Normal) Urobilinogen,Semi-Qn 0.2 mg/dL (Normal) Range: 0.2-1.0 Bilirubin Negative (Normal) Occult Blood Negative (Normal) Ketones Negative (Normal) Glucose Negative (Normal) Protein Negative (Normal) WBC Esterase Negative (Normal) Appearance Clear (Normal) Urine-Color Yellow (Normal) pH 6.5 (Normal) Range: 5.0-7.5 Specific [place] 1.016 (Normal) Range: 1.005-1.030 :25 PT (PROTHROMBIN TIME) (22952) Comments: PATIENT NOT FASTINGPERFORMED BY: [employer] [id number] [facility] [id number] Prothrombin Time 11.1 {sec} (Normal) Range: 9.1-12.0 INR 1.1 (Normal) Range: 0.8-1.2 Comments: Reference interval is for non-anticoagulated patients. . Suggested INR therapeutic range for Vitamin K anta gonist therapy: Standard Dose (moderate intensity therapeutic range): 2.0 - 3.0 Higher intensity therapeutic range 2.5 - 3.5 :25 CBC, Platelets & Auto Diff Comments: PATIENT NOT FASTINGPERFORMED BY: [employer]6370 [facility] [id number] ([id number]) Immature Grans (Abs) 0.0 {x10E3/uL} (Normal) Range: 0.0-0.1 Immature Granulocytes 0 % (Normal) Baso (Absolute) 0.0 {x10E3/uL} (Normal) Range: 0.0-0.2 Eos (Absolute) 0.2 {x10E3/uL} (Normal) Range: 0.0-0.4 Monocytes(Absolute) 0.5 {x10E3/uL} (Normal) Range: 0.1-0.9 Lymphs (Absolute) 1.9 {x10E3/uL} (Normal) Range: 0.7-3.1 Neutrophils (Absolute) 2.3 {x10E3/uL} (Normal) Range: 1.4-7.0 Basos 1 % (Normal) Eos 4 % (Normal) Monocytes 9 % (Normal) Lymphs 39 % (Normal) Neutrophils 47 % (Normal) Platelets 273 {x10E3/uL} (Normal) Range: 150-379 RDW 13.0 % (Normal) Range: 12.3-15.4 MCHC 34.0 g/dL (Normal) Range: 31.5-35.7 MCH 33.7 pg (Abnormal) Range: 26.6-33.0 MCV 99 fL (Abnormal) Range: 79-97 Hematocrit 42.6 % (Normal) Range: 37.5-51.0 Hemoglobin 14.5 g/dL (Normal) Range: 12.6-17.7 RBC 4.30 {x10E6/uL} (Normal) Range: 4.14-5.80 WBC 4.9 {x10E3/uL} (Normal) Range: 3.4-10.8 53-Mar-271180:25 Metabolic Panel, Comprehensive Comments: PATIENT NOT FASTINGPERFORMED BY: [facility]CoRe[facility] Hospital of South JerseyUjjtyh5316 [facility] [id number] ([id number]) ALT (SGPT) 15 [iU]/L (Normal) Range: 0-44 AST (SGOT) 15 [iU]/L (Normal) Range: 0-40 Alkaline Phosphatase, S 63 [iU]/L (Normal) Range: 39-117 Bilirubin, Total 0.4 mg/dL (Normal) Range: 0.0-1.2 A/G Ratio 1.9 (Normal) Range: 1.2-2.2 Comments: Please note reference interval change Globulin, Total 2.2 g/dL (Normal) Range: 1.5-4.5 Albumin, Serum 4.2 g/dL (Normal) Range: 3.6-4.8 Protein, Total, Serum 6.4 g/dL (Normal) Range: 6.0-8.5 Calcium, Serum 9.5 mg/dL (Normal) Range: 8.6-10.2 Carbon Dioxide, Total 24 mmol/L (Normal) Range: 18-29 Chloride, Serum 104 mmol/L (Normal) Range: 96-106 Potassium, Serum 4.5 mmol/L (Normal) Range: 3.5-5.2 Sodium, Serum 144 mmol/L (Normal) Range: 134-144 BUN/Creatinine Ratio 16 (Normal) Range: 10-22 eGFR If Africn Am 78 mL/min/1.73 (Normal) eGFR If NonAfricn Am 67 mL/min/1.73 (Normal) Creatinine, Serum 1.16 mg/dL (Normal) Range: 0.76-1.27 BUN 19 mg/dL (Normal) Range: 8-27 Glucose, Serum 87 mg/dL (Normal) Range: 65-99 :59 URINALYSIS (19684) Comments: PATIENT NOT FASTINGPERFORMED BY: [employer] Vjelcy2679 [facility] [id number] Information: [id number] Microscopic Examination MICNIP (Normal) Comments: Microscopic not indicated and not performed. Nitrite, Urine Negative (Normal) Urobilinogen,Semi-Qn 1.0 mg/dL (Normal) Range: 0.2-1.0 Bilirubin Negative (Normal) Occult Blood Negative (Normal) Ketones Negative (Normal) Glucose Negative (Normal) Protein Negative (Normal) WBC Esterase Negative (Normal) Appearance Clear (Normal) Urine-Color Yellow (Normal) pH 7.5 (Normal) Range: 5.0-7.5 Specific [place] 1.019 (Normal) Range: 1.005-1.030 :23 PSA (Prostate Specific Comments: PATIENT WAS FASTINGPERFORMED BY: [employer]70 [facility] [id number] Antigen), Screening ([id number]) Prostate Specific Ag, 0.6 ng/mL (Normal) Range: 0.0-4.0 Serum Comments: Amee ECLIA methodology. .According to the [place] [employer], Serum PSA shoulddecrease and remain at undetectable levels after radicalprostatectomy. The AUA defines biochemical recurrence as an initialPSA value 0.2 ng/mL or greater followed by a subsequent confirmatoryPSA value 0.2 ng/mL or greater.Values obtained with d ifferent assay methods or kits cannot be usedinterchangeably. Results cannot be interpreted as absolute evidenceof the presence or absence of malignant disease. :23 Metabolic Panel, Comprehensive Comments: PATIENT WAS FASTINGPERFORMED BY: [id number] [facility] [id number] ([id number]) ALT (SGPT) 15 [iU]/L (Normal) Range: 0-44 AST (SGOT) 22 [iU]/L (Normal) Range: 0-40 Alkaline Phosphatase, S 54 [iU]/L (Normal) Range: 39-117 Bilirubin, Total 1.1 mg/dL (Normal) Range: 0.0-1.2 A/G Ratio 2.1 (Normal) Range: 1.1-2.5 Globulin, Total 2.1 g/dL (Normal) Range: 1.5-4.5 Albumin, Serum 4.5 g/dL (Normal) Range: 3.6-4.8 Protein, Total, Serum 6.6 g/dL (Normal) Range: 6.0-8.5 Calcium, Serum 9.3 mg/dL (Normal) Range: 8.6-10.2 Carbon Dioxide, Total 22 mmol/L (Normal) Range: 18-29 Chloride, Serum 102 mmol/L (Normal) Range: 97-108 Potassium, Serum 4.1 mmol/L (Normal) Range: 3.5-5.2 Sodium, Serum 140 mmol/L (Normal) Range: 134-144 BUN/Creatinine Ratio 13 (Normal) Range: 10-22 eGFR If Africn Am 101 mL/min/1.73 (Normal) eGFR If NonAfricn Am 88 mL/min/1.73 (Normal) Creatinine, Serum 0.93 mg/dL (Normal) Range: 0.76-1.27 BUN 12 mg/dL (Normal) Range: 8-27 Glucose, Serum 88 mg/dL (Normal) Range: 65-99 50-Tlw-893694:23 Lipid Panel (90395) Comments: PATIENT WAS FASTINGPERFORMED BY: [facility]CoRe[facility] Hospital of South JerseyBgrlpo0402 [facility] [id number] LDL/HDL Ratio 2.5 {ratio_units} (Normal) Range: 0.0-3.6 Comments: LDL/HDL Ratio Men Women 1/2 Avg.Risk 1.0 1.5 Av g.Risk 3.6 3.2 2X Avg.Risk 6.2 5.0 3X Avg.Risk 8.0 6.1 LDL Cholesterol Calc 113 mg/dL (Abnormal) Range: 0-99 VLDL Cholesterol Rafi 25 mg/dL (Normal) Range: 5-40 HDL Cholesterol 46 mg/dL (Normal) Comments: According to ATP-III Guidelines, HDL-C >59 mg/dL is considered anegative risk factor for CHD. Triglycerides 124 mg/dL (Normal) Range: 0-149 Cholesterol, Total 184 mg/dL (Normal) Range: 100-199 59-Bun-838545:23 CBC WITH MANUAL DIFF Comments: PATIENT WAS FASTINGPERFORMED BY: LabCoJohn Ville [id number] [facility] [id number] Information: [id number] ([id number]) Immature Grans (Abs) 0.0 {x10E3/uL} (Normal) Range: 0.0-0.1 Immature Granulocytes 0 % (Normal) Baso (Absolute) 0.0 {x10E3/uL} (Normal) Range: 0.0-0.2 Eos (Absolute) 0.1 {x10E3/uL} (Normal) Range: 0.0-0.4 Monocytes(Absolute) 0.4 {x10E3/uL} (Normal) Range: 0.1-0.9 Lymphs (Absolute) 1.8 {x10E3/uL} (Normal) Range: 0.7-3.1 Neutrophils (Absolute) 3.0 {x10E3/uL} (Normal) Range: 1.4-7.0 Basos 1 % (Normal) Eos 2 % (Normal) Monocytes 8 % (Normal) Lymphs 33 % (Normal) Neutrophils 56 % (Normal) Platelets 251 {x10E3/uL} (Normal) Range: 150-379 RDW 13.1 % (Normal) Range: 12.3-15.4 MCHC 34.3 g/dL (Normal) Range: 31.5-35.7 MCH 33.9 pg (Abnormal) Range: 26.6-33.0 MCV 99 fL (Abnormal) Range: 79-97 Hematocrit 42.0 % (Normal) Range: 37.5-51.0 Hemoglobin 14.4 g/dL (Normal) Range: 12.6-17.7 RBC 4.25 {x10E6/uL} (Normal) Range: 4.14-5.80 WBC 5.4 {x10E3/uL} (Normal) Range: 3.4-10.8 :20 CBC With Differential/Platelet Comments: PATIENT WAS FASTINGPERFORMED BY: [facility]6370 [facility] [id number] Information: [id number] Immature Grans (Abs) 0.0 {x10E3/uL} (Normal) Range: 0.0-0.1 Immature Granulocytes 0 % (Normal) Baso (Absolute) 0.0 {x10E3/uL} (Normal) Range: 0.0-0.2 Eos (Absolute) 0.1 {x10E3/uL} (Normal) Range: 0.0-0.4 Monocytes(Absolute) 0.3 {x10E3/uL} (Normal) Range: 0.1-0.9 Lymphs (Absolute) 1.5 {x10E3/uL} (Normal) Range: 0.7-3.1 Neutrophils (Absolute) 2.0 {x10E3/uL} (Normal) Range: 1.4-7.0 Basos 1 % (Normal) Eos 3 % (Normal) Monocytes 7 % (Normal) Lymphs 38 % (Normal) Neutrophils 51 % (Normal) Platelets 260 {x10E3/uL} (Normal) Range: 150-379 RDW 13.1 % (Normal) Range: 12.3-15.4 MCHC 34.4 g/dL (Normal) Range: 31.5-35.7 MCH 33.7 pg (Abnormal) Range: 26.6-33.0 MCV 98 fL (Abnormal) Range: 79-97 Hematocrit 41.8 % (Normal) Range: 37.5-51.0 Hemoglobin 14.4 g/dL (Normal) Range: 12.6-17.7 RBC 4.27 {x10E6/uL} (Normal) Range: 4.14-5.80 WBC 3.9 {x10E3/uL} (Normal) Range: 3.4-10.8 74-Omx-77093:20 Comp. Metabolic Panel (14) Comments: PATIENT WAS FASTINGPERFORMED BY: LabCoRe[facility] South JerseyBnorjl1503 [facility] [id number] ALT (SGPT) 17 [iU]/L (Normal) Range: 0-44 AST (SGOT) 16 [iU]/L (Normal) Range: 0-40 Alkaline Phosphatase, S 57 [iU]/L (Normal) Range: 39-117 Bilirubin, Total 1.2 mg/dL (Normal) Range: 0.0-1.2 A/G Ratio 1.8 (Normal) Range: 1.1-2.5 Globulin, Total 2.3 g/dL (Normal) Range: 1.5-4.5 Albumin, Serum 4.1 g/dL (Normal) Range: 3.6-4.8 Protein, Total, Serum 6.4 g/dL (Normal) Range: 6.0-8.5 Calcium, Serum 9.1 mg/dL (Normal) Range: 8.6-10.2 Carbon Dioxide, Total 22 mmol/L (Normal) Range: 18-29 Chloride, Serum 105 mmol/L (Normal) Range: 97-108 Potassium, Serum 4.1 mmol/L (Normal) Range: 3.5-5.2 Sodium, Serum 140 mmol/L (Normal) Range: 134-144 BUN/Creatinine Ratio 18 (Normal) Range: 10-22 eGFR If Africn Am 103 mL/min/1.73 (Normal) eGFR If NonAfricn Am 89 mL/min/1.73 (Normal) Creatinine, Serum 0.92 mg/dL (Normal) Range: 0.76-1.27 BUN 17 mg/dL (Normal) Range: 8-27 Glucose, Serum 95 mg/dL (Normal) Range: 65-99 :20 Lipid Panel With LDL/HDL Comments: PATIENT WAS FASTINGPERFORMED BY: BBOXX MS [id number] Ratio LDL/HDL Ratio 2.5 {ratio_units} (Normal) Range: 0.0-3.6 Comments: LDL/HDL Ratio Men Women 1/2 Avg.Risk 1.0 1.5 Av g.Risk 3.6 3.2 2X Avg.Risk 6.2 5.0 3X Avg.Risk 8.0 6.1 LDL Cholesterol Calc 118 mg/dL (Abnormal) Range: 0-99 VLDL Cholesterol Rafi 21 mg/dL (Normal) Range: 5-40 HDL Cholesterol 47 mg/dL (Normal) Comments: According to ATP-III Guidelines, HDL-C >59 mg/dL is considered anegative risk factor for CHD. Triglycerides 103 mg/dL (Normal) Range: 0-149 Cholesterol, Total 186 mg/dL (Normal) Range: 100-199 :20 Microscopic Examination Comments: PATIENT WAS FASTINGPERFORMED BY: [id number] [facility] [id number] Bacteria None seen (Normal) Mucus Threads Present (Normal) Epithelial Cells (non renal) None seen {/hpf} (Normal) Range: 0 - 10 RBC None seen {/hpf} (Normal) Range: 0 - 2 WBC 0-5 {/hpf} (Normal) Range: 0 - 5 :20 Prostate-Specific Ag, Serum Comments: PATIENT WAS FASTINGPERFORMED BY: [id number] [facility] [id number] Prostate Specific Ag, 0.8 ng/mL (Normal) Range: 0.0-4.0 Serum Comments: Weather Decision TechnologiesIA methodology. .According to the [place] [employer], Serum PSA shoulddecrease and remain at undetectable levels after radicalprostatectomy. The AUA defines biochemical recurrence as an initialPSA value 0.2 ng/mL or greater followed by a subsequent confirmatoryPSA value 0.2 ng/mL or greater.Values obtained with d ifferent assay methods or kits cannot be usedinterchangeably. Results cannot be interpreted as absolute evidenceof the presence or absence of malignant disease. :20 Urinalysis, Complete Comments: PATIENT WAS FASTINGPERFORMED BY: [id number] [facility] [id number] Microscopic Examination See below: (Normal) Comments: Microscopic was indicated and was performed. Microscopic Examination MICRON (Normal) Comments: Microscopic follows if indicated. Nitrite, Urine Negative (Normal) Urobilinogen,Semi-Qn 0.2 mg/dL (Normal) Range: 0.0-1.9 Bilirubin Negative (Normal) Occult Blood Negative (Normal) Ketones Negative (Normal) Glucose Negative (Normal) Protein Negative (Normal) WBC Esterase Negative (Normal) Appearance Clear (Normal) Urine-Color Yellow (Normal) pH 7.0 (Normal) Range: 5.0-7.5 Specific [place] 1.019 (Normal) Range: 1.005-1.030 :09 BILIRUBIN, TOTAL ([id number]) Comments: PATIENT NOT FASTINGPERFORMED BY: [id number] [facility] [id number] Information: [id number] Bilirubin, Indirect 0.48 mg/dL (Normal) Range: 0.10-0.80 Bilirubin, Direct 0.22 mg/dL (Normal) Range: 0.00-0.40 Bilirubin, Total 0.7 mg/dL (Normal) Range: 0.0-1.2 :52 Hemoglobin Glyclated (HGB A1C) Comments: PATIENT WAS FASTINGPERFORMED BY: [facility]6370 [facility] [id number] ([id number]) Hemoglobin A1c 5.6 % (Normal) Range: 4.8-5.6 Comments: . Increased risk for diabetes: 5.7 - 6.4 Diabetes: >6.4 Glycemic control for adults with diabetes: <7.0 :52 Lipid Panel (24167) Comments: PATIENT WAS FASTINGPERFORMED BY: [facility]Henry [facility]6370 [facility] [id number] Information: [id number] LDL/HDL Ratio 2.1 {ratio_units} (Normal) Range: 0.0-3.6 LDL Cholesterol Calc 106 mg/dL (Abnormal) Range: 0-99 VLDL Cholesterol Rafi 14 mg/dL (Normal) Range: 5-40 HDL Cholesterol 51 mg/dL (Normal) Comments: According to ATP-III Guidelines, HDL-C >59 mg/dL is considered anegative risk factor for CHD. Triglycerides 71 mg/dL (Normal) Range: 0-149 Cholesterol, Total 171 mg/dL (Normal) Range: 100-199 :58 PSA (PROSTATE SPECIFIC Comments: PATIENT WAS FASTINGPERFORMED BY: [facility]6370 [facility] [id number] ANTIGEN) (V76.44) Prostate Specific Ag, 0.7 ng/mL (Normal) Range: 0.0-4.0 Serum Comments: Amee ECLIA methodology. .According to the [place] [employer], Serum PSA shoulddecrease and remain at undetectable levels after radicalprostatectomy. The AUA defines biochemical recurrence as an initialPSA value 0.2 ng/mL or greater followed by a subsequent confirmatoryPSA value 0.2 ng/mL or greater.Values obtained with d ifferent assay methods or kits cannot be usedinterchangeably. Results cannot be interpreted as absolute evidenceof the presence or absence of malignant disease. :58 METABOLIC PANEL, COMPREHENSIVE Comments: PATIENT WAS FASTINGPERFORMED BY: [employer] Rulyzd1809 [facility] [id number] ([id number]) ALT (SGPT) 24 [iU]/L (Normal) Range: 0-44 AST (SGOT) 25 [iU]/L (Normal) Range: 0-40 Alkaline Phosphatase, S 63 [iU]/L (Normal) Range: 25-150 Bilirubin, Total 1.0 mg/dL (Normal) Range: 0.0-1.2 A/G Ratio 1.8 (Normal) Range: 1.1-2.5 Globulin, Total 2.6 g/dL (Normal) Range: 1.5-4.5 Albumin, Serum 4.6 g/dL (Normal) Range: 3.5-5.5 Protein, Total, Serum 7.2 g/dL (Normal) Range: 6.0-8.5 Calcium, Serum 9.9 mg/dL (Normal) Range: 8.7-10.2 Carbon Dioxide, Total 22 mmol/L (Normal) Range: 20-32 Chloride, Serum 104 mmol/L (Normal) Range: 97-108 Potassium, Serum 4.6 mmol/L (Normal) Range: 3.5-5.2 Sodium, Serum 139 mmol/L (Normal) Range: 134-144 BUN/Creatinine Ratio 19 (Normal) Range: 9-20 eGFR If Africn Am 87 mL/min/1.73 (Normal) eGFR If NonAfricn Am 75 mL/min/1.73 (Normal) Creatinine, Serum 1.08 mg/dL (Normal) Range: 0.76-1.27 BUN 21 mg/dL (Normal) Range: 6-24 Glucose, Serum 102 mg/dL (Abnormal) Range: 65-99 :58 LIPID PANEL (47549) Comments: PATIENT WAS FASTINGPERFORMED BY: [employer]6370 [facility] [id number] LDL/HDL Ratio 2.5 {ratio_units} (Normal) Range: 0.0-3.6 LDL Cholesterol Calc 141 mg/dL (Abnormal) Range: 0-99 VLDL Cholesterol Rafi 20 mg/dL (Normal) Range: 5-40 Cholesterol, Total 217 mg/dL (Abnormal) Range: 100-199 HDL Cholesterol 56 mg/dL (Normal) Comments: According to ATP-III Guidelines, HDL-C >59 mg/dL is considered anegative risk factor for CHD. Triglycerides 98 mg/dL (Normal) Range: 0-149 37-Kak-002923:58 CBC WITH MANUAL DIFF Comments: PATIENT WAS FASTINGPERFORMED BY: KAILEY [facility]CoRe[facility] Hospital of South JerseyNtrfeg2953 [facility] [id number] Information: [id number] ([id number]) Immature Grans (Abs) 0.0 {x10E3/uL} (Normal) Range: 0.0-0.1 Immature Granulocytes 0 % (Normal) Range: 0-2 Baso (Absolute) 0.0 {x10E3/uL} (Normal) Range: 0.0-0.2 Eos (Absolute) 0.0 {x10E3/uL} (Normal) Range: 0.0-0.4 Monocytes(Absolute) 0.1 {x10E3/uL} (Normal) Range: 0.1-1.0 Lymphs (Absolute) 0.8 {x10E3/uL} (Normal) Range: 0.7-4.5 Neutrophils (Absolute) 6.2 {x10E3/uL} (Normal) Range: 1.8-7.8 Basos 0 % (Normal) Range: 0-3 Eos 0 % (Normal) Range: 0-7 Monocytes 1 % (Abnormal) Range: 4-13 Lymphs 12 % (Abnormal) Range: 14-46 Neutrophils 87 % (Abnormal) Range: 40-74 Platelets 291 {x10E3/uL} (Normal) Range: 140-415 RDW 12.9 % (Normal) Range: 12.3-15.4 MCHC 33.8 g/dL (Normal) Range: 31.5-35.7 MCH 33.0 pg (Normal) Range: 26.6-33.0 MCV 98 fL (Abnormal) Range: 79-97 Hematocrit 45.3 % (Normal) Range: 37.5-51.0 Hemoglobin 15.3 g/dL (Normal) Range: 12.6-17.7 RBC 4.63 {x10E6/uL} (Normal) Range: 4.14-5.80 WBC 7.1 {x10E3/uL} (Normal) Range: 4.0-10.5 :45 FOLIC ACID SERUM (24861) Comments: PATIENT NOT FASTINGPERFORMED BY: [facility]6[address] [facility] [id number] Information: [id number] Folate (Folic Acid), Serum >19.9 ng/mL (Normal) Comments: Indeterminate: 2.2 - 3.0 Deficient: <2.2 :45 Vitamin B-12 (cyanocobalamin) Comments: PATIENT NOT FASTINGPERFORMED BY: [facility] [id number] (30858) Vitamin B12 463 pg/mL (Normal) Range: 211-946 :45 TSH (21706) Comments: PATIENT NOT FASTINGPERFORMED BY: [facility] [id number] TSH 1.120 {uIU/mL} (Normal) Range: 0.450-4.500 :41 Microscopic Examination Comments: PATIENT WAS FASTINGPERFORMED BY: [facility] [id number] Bacteria Few (Normal) Epithelial Cells (non renal) None seen {/hpf} (Normal) Range: 0 - 10 RBC 0-3 {/hpf} (Normal) Range: 0 - 3 WBC 0-5 {/hpf} (Normal) Range: 0 - 5 :41 METABOLIC PANEL, COMPREHENSIVE Comments: PATIENT WAS FASTINGPERFORMED BY: [facility] Znozpl4356 [facility] [id number] (89162) ALT (SGPT) 19 [iU]/L (Normal) Range: 0-55 AST (SGOT) 17 [iU]/L (Normal) Range: 0-40 Alkaline Phosphatase, S 56 [iU]/L (Normal) Range: 25-150 Bilirubin, Total 0.7 mg/dL (Normal) Range: 0.0-1.2 A/G Ratio 2.0 (Normal) Range: 1.1-2.5 Globulin, Total 2.1 g/dL (Normal) Range: 1.5-4.5 Albumin, Serum 4.2 g/dL (Normal) Range: 3.5-5.5 Protein, Total, Serum 6.3 g/dL (Normal) Range: 6.0-8.5 Calcium, Serum 9.2 mg/dL (Normal) Range: 8.7-10.2 Carbon Dioxide, Total 23 mmol/L (Normal) Range: 20-32 Chloride, Serum 106 mmol/L (Normal) Range: 97-108 Potassium, Serum 3.9 mmol/L (Normal) Range: 3.5-5.2 Sodium, Serum 141 mmol/L (Normal) Range: 134-144 Comments: Please note reference interval change BUN/Creatinine Ratio 20 (Normal) Range: 9-20 eGFR If Africn Am 111 mL/min/1.73 (Normal) Comments: Note: A persistent eGFR <60 mL/min/1.73 m2 (3 months or more) mayindicate chronic kidney disease. An eGFR >59 mL/min/1.73 m2 with anelevated urine protein also may indicate chronic kidney disease.Calculated using CKD-EPI formula. eGFR If NonAfricn Am 96 mL/min/1.73 (Normal) Creatinine, Serum 0.86 mg/dL (Normal) Range: 0.76-1.27 BUN 17 mg/dL (Normal) Range: 6-24 Glucose, Serum 87 mg/dL (Normal) Range: 65-99 :41 PSA (PROSTATE SPECIFIC Comments: PATIENT WAS FASTINGPERFORMED BY: [facility]6[address] [facility] [id number] ANTIGEN) (V76.44) Prostate Specific Ag, 0.7 ng/mL (Normal) Range: 0.0-4.0 Serum Comments: [employer] ECLIA methodology. .According to the [place] [employer], Serum PSA shoulddecrease and remain at undetectable levels after radicalprostatectomy. The AUA defines biochemical recurrence as an initialPSA value 0.2 ng/mL or greater followed by a subsequent confirmatoryPSA value 0.2 ng/mL or greater.Values obtained with d ifferent assay methods or kits cannot be usedinterchangeably. Results cannot be interpreted as absolute evidenceof the presence or absence of malignant disease. :41 URINALYSIS, W/ MICRO (26398) Comments: PATIENT WAS FASTINGPERFORMED BY: [facility]wiseRehabilitation Hospital of South JerseyEvujxz6767 [facility] [id number] Microscopic Examination See below: (Normal) Microscopic Examination MICRON (Normal) Comments: Microscopic follows if indicated. Nitrite, Urine Negative (Normal) Urobilinogen,Semi-Qn 0.2 mg/dL (Normal) Range: 0.0-1.9 Bilirubin Negative (Normal) Occult Blood Negative (Normal) Ketones Negative (Normal) Glucose Negative (Normal) Protein Negative (Normal) WBC Esterase Negative (Normal) Appearance Clear (Normal) Urine-Color Yellow (Normal) pH 7.0 (Normal) Range: 5.0-7.5 Specific [place] 1.020 (Normal) Range: 1.005-1.030 :41 LIPID PANEL (69868) Comments: PATIENT WAS FASTINGPERFORMED BY: [employer] Azqbdb0291 [facility] [id number] LDL/HDL Ratio 2.2 {ratio_units} (Normal) Range: 0.0-3.6 LDL Cholesterol Calc 113 mg/dL (Abnormal) Range: 0-99 HDL Cholesterol 51 mg/dL (Normal) Comments: According to ATP-III Guidelines, HDL-C >59 mg/dL is considered anegative risk factor for CHD. VLDL Cholesterol Rafi 24 mg/dL (Normal) Range: 5-40 Triglycerides 119 mg/dL (Normal) Range: 0-149 Cholesterol, Total 188 mg/dL (Normal) Range: 100-199 :41 CBC WITH MANUAL DIFF Comments: PATIENT WAS FASTINGPERFORMED BY: [facility]Henry [facility] [id number] Information: [id number] (87551) Immature Grans (Abs) 0.0 {x10E3/uL} (Normal) Range: 0.0-0.1 Immature Granulocytes 0 % (Normal) Range: 0-2 Baso (Absolute) 0.0 {x10E3/uL} (Normal) Range: 0.0-0.2 Eos (Absolute) 0.2 {x10E3/uL} (Normal) Range: 0.0-0.4 Monocytes(Absolute) 0.4 {x10E3/uL} (Normal) Range: 0.1-1.0 Lymphs (Absolute) 1.6 {x10E3/uL} (Normal) Range: 0.7-4.5 Neutrophils (Absolute) 2.7 {x10E3/uL} (Normal) Range: 1.8-7.8 Basos 1 % (Normal) Range: 0-3 Eos 3 % (Normal) Range: 0-7 Monocytes 7 % (Normal) Range: 4-13 Lymphs 34 % (Normal) Range: 14-46 Neutrophils 55 % (Normal) Range: 40-74 Platelets 242 {x10E3/uL} (Normal) Range: 140-415 RDW 12.7 % (Normal) Range: 11.7-15.0 MCHC 32.6 g/dL (Normal) Range: 32.0-36.0 MCH 33.4 pg (Normal) Range: 27.0-34.0 MCV 103 fL (Abnormal) Range: 80-98 Hematocrit 43.9 % (Normal) Range: 36.0-50.0 Hemoglobin 14.3 g/dL (Normal) Range: 12.5-17.0 RBC 4.28 {x10E6/uL} (Normal) Range: 4.10-5.60 WBC 4.9 {x10E3/uL} (Normal) Range: 4.0-10.5 :51 PSA (PROSTATE SPECIFIC Comments: PATIENT WAS FASTINGPERFORMED BY: [facility] [place] [id number] ANTIGEN) (V76.44) Prostate Specific Ag, 0.6 ng/mL (Normal) Range: 0.0-4.0 Serum Comments: Weather Decision TechnologiesIA methodology. .According to the [place] [employer], Serum PSA shoulddecrease and remain at undetectable levels after radicalprostatectomy. The AUA defines biochemical recurrence as an initialPSA value 0.2 ng/mL or greater followed by a subsequent confirmatoryPSA value 0.2 ng/mL or greater.Values obtained with d ifferent assay methods or kits cannot be usedinterchangeably. Results cannot be interpreted as absolute evidenceof the presence or absence of malignant disease. :51 LIPID PANEL (75395) Comments: PATIENT WAS FASTINGPERFORMED BY: Wedge Networksblin [place] [id number] LDL Cholesterol Calc 95 mg/dL (Normal) Range: 0-99 LDL/HDL Ratio 1.8 {ratio_units} (Normal) Range: 0.0-3.6 HDL Cholesterol 52 mg/dL (Normal) Comments: According to ATP-III Guidelines, HDL-C >59 mg/dL is considered anegative risk factor for CHD. VLDL Cholesterol Rafi 16 mg/dL (Normal) Range: 5-40 Triglycerides 81 mg/dL (Normal) Range: 0-149 Cholesterol, Total 163 mg/dL (Normal) Range: 100-199 78-Tbw-494532:51 METABOLIC PANEL, Comments: PATIENT WAS FASTINGPERFORMED BY: KAILEY LabCoRe[facility] Hospital of South JerseyOmqpnb9214 [facility] [id number] Information: [id number] COMPREHENSIVE (85005) ALT (SGPT) 19 [iU]/L (Normal) Range: 0-55 AST (SGOT) 21 [iU]/L (Normal) Range: 0-40 Alkaline Phosphatase, S 59 [iU]/L (Normal) Range: 25-150 Bilirubin, Total 1.5 mg/dL (Abnormal) Range: 0.0-1.2 A/G Ratio 2.0 (Normal) Range: 1.1-2.5 Globulin, Total 2.3 g/dL (Normal) Range: 1.5-4.5 Albumin, Serum 4.5 g/dL (Normal) Range: 3.5-5.5 Calcium, Serum 9.5 mg/dL (Normal) Range: 8.7-10.2 Protein, Total, Serum 6.8 g/dL (Normal) Range: 6.0-8.5 Carbon Dioxide, Total 24 mmol/L (Normal) Range: 20-32 Chloride, Serum 102 mmol/L (Normal) Range: 97-108 Potassium, Serum 4.0 mmol/L (Normal) Range: 3.5-5.2 Sodium, Serum 139 mmol/L (Normal) Range: 135-145 BUN/Creatinine Ratio 17 (Normal) Range: 8-27 Comments: Effective March 19, 2010, Bun/Creatinine Ratio reference interval will be changing to: Age Male Female <18 years - 9 - 25 18 - 39 years 8 - 19 8 - 20 40 - 59 years 9 - 20 9 - 60 years and older 10 - 11 - 26 eGFR >59 mL/min/1.73 (Normal) eGFR AfricanAmerican >59 mL/min/1.73 Comments: Note: Persistent reduction for 3 months or more in an eGFR<60 mL/min/1.73 m2 defines CKD. Patients with eGFR values>/=60 mL/min/1.73 m2 may also have CKD if evidence of persistentproteinuria is (Normal) present. Additional information may be found [email or web address]. BUN 16 mg/dL (Normal) Range: 5-26 Comments: Effective March 19, 2010, BUN reference interval will be changing to: 0 - 12 months 3 - 18 mg/dL 1 - 17 years 5 - 18 mg/dL 18 - 39 years 6 - 20 mg/dL 40 - 59 years 6 - 24 mg/dL 60 - 89 y ears 8 - 27 mg/dL > 89 years 10 - 36 mg/dL Creatinine, Serum 0.93 mg/dL (Normal) Range: 0.76-1.27 Glucose, Serum 85 mg/dL (Normal) Range: 65-99 09-Oct-20096:31 LEFT HEART CATH/COR/LV PERCUT Radiology Report See Note (Normal) Comments: Exam Number: [id number] Procedure completed. Please see MEDICAL RECORDS reports in PCI -OP - OP NOTELET - LETTER. Reported By: JENNIFER BARRETT M.D. 09-Oct-20094:00 BMP BUN 8 mg/dL (Normal) Range: 7-18 BUN/CRE 8.9 {RATIO} (Abnormal) Range: 10-20 CA 9.2 mg/dL (Normal) Range: 8.5-10.1 CL 105 mmol/L (Normal) Range: 98-107 CO2 27.0 mmol/L (Normal) Range: 21.0-32.0 CREAT,SERUM 0.9 mg/dL (Normal) Range: 0.8-1.3 EST GFR 93 mL/min (Normal) EST GFR - AA 113 mL/min (Normal) GAP 5 (Normal) Range: 5-15 GLU 99 mg/dL (Normal) Range: 70-110 K 4.3 mmol/L (Normal) Range: 3.5-5.1 NA 137 mmol/L (Normal) Range: 136-145 :00 CBCD ABSOLUTE NEUT 2.6 3/uL (Normal) Range: 2.0-7.7 BASO% 0.4 % (Normal) Range: 0-1 EO% 4.6 % (Normal) Range: 0-5 LY% 28.0 % (Normal) Range: 19-41 MONO% 10.5 % (Abnormal) Range: 0-10 MPV 7.4 fL (Normal) Range: 6.5-12.0 NEUT% 56.5 % (Normal) Range: 47-70 PLT 187 K/mm3 (Normal) Range: 150-450 HCT 40.0 % (Normal) Range: 40-54 HGB 13.9 g/dL (Abnormal) Range: 14.0-18.0 MCH 34.2 pg (Abnormal) Range: 27.0-32.0 MCHC 34.6 g/dL (Normal) Range: 32-36 MCV 98.7 fL (Abnormal) Range: 80-94 RBC 4.05 {M/mm3} (Abnormal) Range: 4.6-6.2 RDW 12.3 % (Normal) Range: 11.6-14.6 WBC 4.6 K/mm3 (Normal) Range: 4.4-11.0 :00 MG 2.1 mg/dL (Normal) Range: 1.5-2.2 :00 PRO TIME Comments: COMMENTS: NEEDS INR PRIOR TO HEART CATH INR 1.2 (Normal) PROTIME 12.6 s (Abnormal) Range: 9.1-11.7 :20 BMP CL 107 mmol/L (Normal) Range: 98-107 CO2 26.0 mmol/L (Normal) Range: 21.0-32.0 GAP 6 (Normal) Range: 5-15 K 3.6 mmol/L (Normal) Range: 3.5-5.1 BUN 7 mg/dL (Normal) Range: 7-18 BUN/CRE 7.0 {RATIO} (Abnormal) Range: 10-20 CA 8.5 mg/dL (Normal) Range: 8.5-10.1 CREAT,SERUM 1.0 mg/dL (Normal) Range: 0.8-1.3 EST GFR 82 mL/min (Normal) EST GFR - AA 99 mL/min (Normal) GLU 103 mg/dL (Normal) Range: 70-110 NA 139 mmol/L (Normal) Range: 136-145 :20 CBCD ABSOLUTE NEUT 2.7 3/uL (Normal) Range: 2.0-7.7 BASO% 0.3 % (Normal) Range: 0-1 EO% 1.7 % (Normal) Range: 0-5 LY% 27.0 % (Normal) Range: 19-41 MCHC 34.4 g/dL (Normal) Range: 32-36 MONO% 12.5 % (Abnormal) Range: 0-10 MPV 7.8 fL (Normal) Range: 6.5-12.0 NEUT% 58.5 % (Normal) Range: 47-70 PLT 171 K/mm3 (Normal) Range: 150-450 RDW 12.6 % (Normal) Range: 11.6-14.6 HCT 38.3 % (Abnormal) Range: 40-54 HGB 13.2 g/dL (Abnormal) Range: 14.0-18.0 MCH 34.3 pg (Abnormal) Range: 27.0-32.0 MCV 99.9 fL (Abnormal) Range: 80-94 RBC 3.83 {M/mm3} (Abnormal) Range: 4.6-6.2 WBC 4.7 K/mm3 (Normal) Range: 4.4-11.0 :20 MG 2.2 mg/dL (Normal) Range: 1.5-2.2 :45 BC No growth in 5 days. Comments: COMMENTS: X 2 SITES 1 HOUR APART (Normal) :44 CBCD ABSOLUTE NEUT 3.4 3/uL (Normal) Range: 2.0-7.7 BASO% 0.3 % (Normal) Range: 0-1 EO% 1.7 % (Normal) Range: 0-5 LY% 12.7 % (Abnormal) Range: 19-41 MCHC 34.6 g/dL (Normal) Range: 32-36 MONO% 6.6 % (Normal) Range: 0-10 MPV 8.0 fL (Normal) Range: 6.5-12.0 NEUT% 78.7 % (Abnormal) Range: 47-70 PLT 168 K/mm3 (Normal) Range: 150-450 RDW 12.8 % (Normal) Range: 11.6-14.6 HCT 37.5 % (Abnormal) Range: 40-54 HGB 13.0 g/dL (Abnormal) Range: 14.0-18.0 MCH 34.8 pg (Abnormal) Range: 27.0-32.0 MCV 100.4 fL (Abnormal) Range: 80-94 RBC 3.73 {M/mm3} (Abnormal) Range: 4.6-6.2 WBC 4.3 K/mm3 (Abnormal) Range: 4.4-11.0 04-Yfl-125469:44 ESR SED RATE 9 mm/h (Normal) Range: 0-20 :35 BMP CL 105 mmol/L (Normal) Range: 98-107 CO2 24.0 mmol/L (Normal) Range: 21.0-32.0 GAP 6 (Normal) Range: 5-15 K 3.7 mmol/L (Normal) Range: 3.5-5.1 BUN/CRE 20.0 {RATIO} (Normal) Range: 10-20 CA 7.7 mg/dL (Abnormal) Range: 8.5-10.1 EST GFR - AA 81 mL/min (Normal) NA 135 mmol/L (Abnormal) Range: 136-145 BUN 24 mg/dL (Abnormal) Range: 7-18 CREAT,SERUM 1.2 mg/dL (Normal) Range: 0.8-1.3 EST GFR 67 mL/min (Normal) GLU 97 mg/dL (Normal) Range: 70-110 51-Ecy-294210:35 LIPID HDL 37 mg/dL (Abnormal) Comments: Reference RangeHDL <40 mg/dL Low HDL CholesterolHDL >or= 60 mg/dL High HDL Cholesterol LDL 90 mg/dL (Normal) Range: 0-130 TRIG 61 mg/dL (Normal) Comments: Serum Triglycerides Reference IntervalNormal <150 mg/dLBorderline high 150 - 199 mg/dLHigh 200 - 499 mg/ dLVery High > or = 500 mg/dL VLDL 12 mg/dL (Normal) Range: 5-40 CHOL 139 mg/dL (Normal) Comments: <200 mg/dL Fsggceoex961-888 mg/dL Borderline>240 mg/dL High Risk :35 LIVER ALB 3.2 g/dL (Abnormal) Range: 3.4-5.0 ALK P 58 U/L (Normal) Range: 50-136 ALT 18 U/L (Normal) Range: 12-78 AST 15 U/L (Normal) Range: 15-37 D BILI 0.27 mg/dL (Normal) Range: 0.00-0.30 T BILI 1.10 mg/dL (Abnormal) Range: 0.00-1.00 T PROT 5.8 g/dL (Abnormal) Range: 6.4-8.2 06-Pva-589682:35 MG 1.7 mg/dL (Normal) Range: 1.5-2.2 :06 PSA (PROSTATE SPECIFIC Comments: PATIENT WAS FASTINGPERFORMED BY: [employer]70 [facility]Saint [facility] [id number] ANTIGEN) (V76.44) Prostate Specific Ag, 0.5 ng/mL (Normal) Range: 0.0-4.0 Serum Comments: [employer] ECLIA methodology. .According to the [place] [employer], Serum PSA shoulddecrease and remain at undetectable levels after radicalprostatectomy. The AUA defines biochemical recurrence as an initialPSA value 0.2 ng/mL or greater followed by a subsequent confirmatoryPSA value 0.2 ng/mL or greater.Values obtained with d ifferent assay methods or kits cannot be usedinterchangeably. Results cannot be interpreted as absolute evidenceof the presence or absence of malignant disease. :06 METABOLIC PANEL, COMPREHENSIVE Comments: PATIENT WAS FASTINGPERFORMED BY: [id number] [facility] [id number] (85531) A/G Ratio 1.9 (Normal) Range: 1.1-2.5 Albumin, Serum 4.5 g/dL (Normal) Range: 3.5-5.5 Alkaline Phosphatase, S 75 [iU]/L (Normal) Range: 25-150 ALT (SGPT) 21 [iU]/L (Normal) Range: 0-55 AST (SGOT) 22 [iU]/L (Normal) Range: 0-40 Bilirubin, Total 0.6 mg/dL (Normal) Range: 0.1-1.2 BUN 21 mg/dL (Normal) Range: 5-26 BUN/Creatinine Ratio 23 (Normal) Range: 8-27 Calcium, Serum 9.5 mg/dL (Normal) Range: 8.5-10.6 Carbon Dioxide, Total 22 mmol/L (Normal) Range: 20-32 Chloride, Serum 104 mmol/L (Normal) Range: 97-108 Creatinine, Serum 0.91 mg/dL (Normal) Range: 0.76-1.27 eGFR >59 mL/min/1.73 (Normal) eGFR AfricanAmerican >59 mL/min/1.73 Comments: Note: Persistent reduction for 3 months or more in an eGFR<60 mL/min/1.73 m2 defines CKD. Patients with eGFR values>/=60 mL/min/1.73 m2 may also have CKD if evidence of persistentproteinuria is (Normal) present. Additional information may be found [email or web address]. Globulin, Total 2.4 g/dL (Normal) Range: 1.5-4.5 Glucose, Serum 88 mg/dL (Normal) Range: 65-99 Potassium, Serum 4.3 mmol/L (Normal) Range: 3.5-5.2 Protein, Total, Serum 6.9 g/dL (Normal) Range: 6.0-8.5 Sodium, Serum 140 mmol/L (Normal) Range: 135-145 56-Ypz-337503:06 LIPID PANEL (98593) Comments: PATIENT WAS FASTINGPERFORMED BY: [facility]EC[facility] [id number] Cholesterol, Total 208 mg/dL (Abnormal) Range: 100-199 HDL Cholesterol 50 mg/dL (Normal) Comments: According to ATP-III Guidelines, HDL-C >59 mg/dL is considered anegative risk factor for CHD. LDL Cholesterol Calc 139 mg/dL (Abnormal) Range: 0-99 LDL/HDL Ratio 2.8 {ratio_units} (Normal) Range: 0.0-3.6 Triglycerides 95 mg/dL (Normal) Range: 0-149 VLDL Cholesterol Rafi 19 mg/dL (Normal) Range: 5-40 93-Ztz-934270:06 CBC WITH MANUAL DIFF (13232) Comments: PATIENT WAS FASTINGClinical Information: [id number] PERFORMED BY: [facility]EC[facility] [id number] Baso (Absolute) 0.1 {x10E3/uL} (Normal) Range: 0.0-0.2 Basos 1 % (Normal) Range: 0-3 Eos 2 % (Normal) Range: 0-7 Eos (Absolute) 0.1 {x10E3/uL} (Normal) Range: 0.0-0.4 Hematocrit 43.4 % (Normal) Range: 36.0-50.0 Hemoglobin 14.9 g/dL (Normal) Range: 12.5-17.0 Lymphs 34 % (Normal) Range: 14-46 Lymphs (Absolute) 1.7 {x10E3/uL} (Normal) Range: 0.7-4.5 MCH 34.2 pg (Abnormal) Range: 27.0-34.0 MCHC 34.2 g/dL (Normal) Range: 32.0-36.0 MCV 100 fL (Abnormal) Range: 80-98 Monocytes 7 % (Normal) Range: 4-13 Monocytes(Absolute) 0.4 {x10E3/uL} (Normal) Range: 0.1-1.0 Neutrophils 56 % (Normal) Range: 40-74 Neutrophils (Absolute) 2.8 {x10E3/uL} (Normal) Range: 1.8-7.8 Platelets 234 {x10E3/uL} (Normal) Range: 140-415 RBC 4.34 {x10E6/uL} (Normal) Range: 4.10-5.60 RDW 12.5 % (Normal) Range: 11.7-15.0 WBC 5.0 {x10E3/uL} (Normal) Range: 4.0-10.5 :16 Rapid Flu (23252 x 2) INFLUENZA IMMUNOASSY DIRECT OPTICAL OBSERV negative (Normal) :16 Rapid Strep Test, Office (63763) Rapid Strep Test, Office Negative (Normal) :29 PSA (PROSTATE SPECIFIC Comments: PERFORMED BY: LabCoRehabilitation Hospital [facility] South JerseyUtwkxh0186 [facility] [id number] ANTIGEN) (V76.44) Prostate Specific Ag, Serum 0.5 ng/mL (Normal) Range: 0.0-4.0 Comments: Weather Decision TechnologiesIA methodology. .According to the [place] [employer], PSA should beundetectable after radical prostatectomy. A PSA of less than0.5 ng/mL (or undetectable) is not likely to be associated withdisease recurrence within five years of treatment.Values obtained with different assay methods or kits cannot be usedinterchang eably. Results cannot be interpreted as absolute evidenceof the presence or absence of malignant disease. :29 URINALYSIS W/O MICRO (12822) Comments: PERFORMED BY: [facility]EC[facility] [id number] Appearance Clear (Normal) Bilirubin Negative (Normal) Glucose Negative (Normal) Ketones Negative (Normal) Microscopic Examination MICRON (Normal) Comments: Microscopic follows if indicated. Nitrite, Urine Negative (Normal) Occult Blood Negative (Normal) pH 6.5 (Normal) Range: 5.0-7.5 Protein Negative (Normal) Specific [place] 1.023 (Normal) Range: 1.005-1.030 Urine-Color Yellow (Normal) Urobilinogen,Semi-Qn 0.2 mg/dL (Normal) Range: 0.0-1.9 WBC Esterase Negative (Normal) :29 LIPID PANEL (38779) Comments: PERFORMED BY: [employer] [facility] [id number] Cholesterol, Total 225 mg/dL (Abnormal) Range: 100-199 Comment SPRCS (Normal) Comments: If initial LDL-cholesterol result is >100 mg/dL, assess forrisk factors. HDL Cholesterol 47 mg/dL (Normal) Comments: According to ATP-III Guidelines, HDL-C >59 mg/dL is considered anegative risk factor for CHD. LDL Cholesterol Calc 154 mg/dL (Abnormal) Range: 0-99 LDL/HDL Ratio 3.3 {ratio_units} (Normal) Range: 0.0-3.6 Triglycerides 121 mg/dL (Normal) Range: 0-149 VLDL Cholesterol Rafi 24 mg/dL (Normal) Range: 5-40 :29 METABOLIC PANEL, COMPREHENSIVE Comments: PERFORMED BY: [employer]úbliKo [facility] [id number] (09576) A/G Ratio 1.7 (Normal) Range: 1.1-2.5 Albumin, Serum 4.3 g/dL (Normal) Range: 3.5-5.5 Alkaline Phosphatase, S 64 [iU]/L (Normal) Range: 25-150 ALT (SGPT) 22 [iU]/L (Normal) Range: 0-55 AST (SGOT) 25 [iU]/L (Normal) Range: 0-40 Bilirubin, Total 1.0 mg/dL (Normal) Range: 0.1-1.2 BUN 18 mg/dL (Normal) Range: 5-26 BUN/Creatinine Ratio 18 (Normal) Range: 8-27 Calcium, Serum 9.8 mg/dL (Normal) Range: 8.5-10.6 Carbon Dioxide, Total 24 mmol/L (Normal) Range: 20-32 Chloride, Serum 105 mmol/L (Normal) Range: 97-108 Creatinine, Serum 1.00 mg/dL (Normal) Range: 0.76-1.27 Globulin, Total 2.6 g/dL (Normal) Range: 1.5-4.5 Glom Filt Rate, Est >59 mL/min/1.73 (Normal) Glucose, Serum 95 mg/dL (Normal) Range: 65-99 If -Iraqi >59 mL/min/1.73 Comments: Note: Persistent reduction for 3 months or more in an eGFR<60 mL/min/1.73 m2 defines CKD. Patients with eGFR values>/=60 mL/min/1.73 m2 may also have CKD if evidence of persistentproteinur ia is (Normal) present. Additional information may be found [email or web address]. Potassium, Serum 4.4 mmol/L (Normal) Range: 3.5-5.2 Protein, Total, Serum 6.9 g/dL (Normal) Range: 6.0-8.5 Sodium, Serum 141 mmol/L (Normal) Range: 135-145 14-Omk-05118:29 CBC WITH MANUAL DIFF (59474) Comments: PERFORMED BY: [facility]6370 [facility] [id number] Baso (Absolute) 0.0 {x10E3/uL} (Normal) Range: 0.0-0.2 Basos 0 % (Normal) Range: 0-3 Eos 3 % (Normal) Range: 0-7 Eos (Absolute) 0.1 {x10E3/uL} (Normal) Range: 0.0-0.4 Hematocrit 43.4 % (Normal) Range: 36.0-50.0 Hemoglobin 15.1 g/dL (Normal) Range: 12.5-17.0 Lymphs 31 % (Normal) Range: 14-46 Lymphs (Absolute) 1.5 {x10E3/uL} (Normal) Range: 0.7-4.5 MCH 34.3 pg (Abnormal) Range: 27.0-34.0 MCHC 34.9 g/dL (Normal) Range: 32.0-36.0 MCV 98 fL (Normal) Range: 80-98 Monocytes 9 % (Normal) Range: 4-13 Monocytes(Absolute) 0.4 {x10E3/uL} (Normal) Range: 0.1-1.0 Neutrophils 57 % (Normal) Range: 40-74 Neutrophils (Absolute) 2.8 {x10E3/uL} (Normal) Range: 1.8-7.8 Platelets 248 {x10E3/uL} (Normal) Range: 140-415 RBC 4.42 {x10E6/uL} (Normal) Range: 4.10-5.60 RDW 12.6 % (Normal) Range: 11.7-15.0 WBC 4.9 {x10E3/uL} (Normal) Range: 4.0-10.5 Plan of Care Name Dates Details Instructions BMI 30.0-30.9,adult : Follow up if no improvement or if symptoms worsen Indication: BMI 30.0-30.9,adult Acute sinusitis, unspecified : *URI Treatment Indication: Acute sinusitis, unspecified Acute sinusitis, unspecified : *URI Symptoms Indication: Acute sinusitis, unspecified Acute sinusitis, unspecified : *Antibiotic Usage Education - Male Indication: Acute sinusitis, unspecified Current nonsmoker : Eprescribed prescriptions (G8553) Indication: Current nonsmoker Lower back pain : Reviewed Diagnostic Tests Indication: Lower back pain Lower back pain : Eprescribed prescriptions (G8553) Indication: Lower back pain Current nonsmoker : Follow up in 1 week Indication: Current nonsmoker Sciatica, left side : Eprescribed prescriptions (G8553) Indication: Sciatica, left side BMI 30.0-30.9,adult : Follow up in 2 weeks Indication: BMI 30.0-30.9,adult Numbness and tingling of leg : Eprescribed prescriptions (G8553) Indication: Numbness and tingling of leg Screening for prostate cancer : Follow up in 1 year or as needed Indication: Screening for prostate cancer Hypertension : Eprescribed prescriptions (G8553) Indication: Hypertension Cough : Eprescribed prescriptions (G8553) Indication: Cough Hypercholesterolemia : Eprescribed prescriptions (G8553) Indication: Hypercholesterolemia Need for prophylactic vaccination and inoculation against influenza : Flu (Influenza) *: flu Indication: Need for prophylactic vaccination and inoculation against influenza Need for prophylactic vaccination and inoculation against influenza : Flu (Influenza) *: flu shot Indication: Need for prophylactic vaccination and inoculation against influenza Hypertension : High Blood Pressure (Essential Hypertension) *: cardiovascular health Indication: Hypertension Acute sinusitis, unspecified : *URI Treatment Indication: Acute sinusitis, unspecified Acute sinusitis, unspecified : Antibiotic Usage Education - Male Indication: Acute sinusitis, unspecified Acute sinusitis, unspecified : URI Symptoms Indication: Acute sinusitis, unspecified Bronchitis : URI Symptoms Indication: Bronchitis Other chest pain : Follow up after tests Indication: Other chest pain Planned Observations LIPID PANEL ([id number])Indication: Hypercholesterolemia On: [id number] Request Comments: fasting in future Urinalysis, Office ([id number])Indication: Preop examination On: [id number]:26 Request PSA (PROSTATE SPECIFIC ANTIGEN) (V76.44)Indication: Encounter for routine history and physical exam for male On: :18 Request URINALYSIS, W/ MICRO ([id number])Indication: Hypertension On: [id number]-Gzt-29127:18 Request METABOLIC PANEL, COMPREHENSIVE ([id number])Indication: Hypertension On: 98-Qut-79738:17 Request LIPID PANEL ([id number])Indication: Hypertension On: :17 Request CBC with auto diff ([id number])Indication: Hypertension On: :17 Request BILIRUBIN DIRECT ([id number])Indication: Total bilirubin, elevated On: 16-Jul-20137:48 Request URINALYSIS, W/ MICRO ([id number])Indication: Hypertension On: 34-Rwg-213780:24 Request Planned Procedures Flu Vaccine (Quadrivalent) On: 12-Jan-2018 Intent 01457Sk: Visit, Nurse Comments: Lot #[id number]/30/2019Site-L dltd, IMDose prefilled syringegiven by:Akosua Rucker LPNVIS reviewed and ABN signed Kenalog Injection, 10 mgm On: 09-May-2017 Intent (J3301)By: Darcie Daly CNP Comments: 30mg - [id number] hip, IMMLONG, BRUSHER Darcie Daly CNP Toradol Injection, 30 mg On: 09-May-2017 Intent (J1885)By: Darcie Daly CNP, CNP, Mary E MRI LUMBAR SPINE W/O CONTRAST On: 28-Apr-2017 Intent ([id number])By: Darcie Daly CNP, CNP, Mary E Toradol Injection, 30 mg On: 28-Apr-2017 Intent ([id number])By: Darcie Daly CNP, CNP, Mary E Radiology - Lumbar SpineBy: On: 25-Apr-2017 Intent Darcie Daly CNP, CNP, Mary E Toradol Injection, 30 mg On: 25-Apr-2017 Intent ([id number])By: Darcie Daly CNP Comments: [id number] hip IMMLONG Darcie Daly CNP Flu Vaccine (Quadrivalent) On: 16-Dec-2016 Intent 61078La: Darcie Daly CNP Comments: Lot:[id number]:06/2017Dose:0.5mLRoute:IMSite:L DltdGiven By:Autumn signed aDrcie Daly CNP ELECTROCARDIOGRAM, COMPLETE On: 22-May-2016 Intent (ECG) ([id number])By: Addy BUCHANAN, Comments: sinus rthym ShilpaDarcie Horta CNP Flu Vaccine (Quadrivalent) On: 12-Jan-2016 Intent 24432Yd: Darcie Daly CNP Comments: FLUlot: [id number]:07/24site:Lt deltoidroute:IMdose:.5mlDEMICK MA. Darcie Daly CNP Flu Vaccine (Quadrivalent) On: 06-Jan-2015 Intent 35199Ex: Claudia Walsh MD Comments: Lot:[id number]:09/07/15Dose:0.5mLRoute:IMSite:L DltdGiven By:MARIJA signed TD VACCINE ADULT ([id number])By: On: 21-Jul-2014 Intent Claudia Walsh MD TDAP VACCINE >7 IM (07280)By: On: 21-Jul-2014 Intent Claudia Walsh MD EKG ([id number])By: Jillian ALVARADO, On: 21-Jul-2014 Intent Claudia South Comments: see scanned document of test done to see results reviewed today with patient IMMUNIZ ADMNIN, 1 VAC, On: 27-Dec-2013 Intent SNGL/COMBO ([id number])By: Jillian Comments: lot:[id number]:09/06/2014dose:0.5mLRoute: IMlocation: L armgiven by: Claudia altman MD FLU VAC, SPLIT, >3 YEARS, On: 27-Dec-2013 Intent INTRAMUSC ([id number])By: Marcia Anaya IMMUNIZ ADMNIN, 1 VAC, On: 16-Jul-2013 Intent SNGL/COMBO (48274)By: Claudia Walsh MD EKG ([id number])By: Jillian ALVARADO, On: 27-Feb-2012 Intent Claudia South Comments: see scanned document of test done to see results reviewed today with patient EKG ([id number])By: Ed, On: 27-Feb-2012 Intent VIVIANA EKG (74124)By: Jillian ALVARADO, On: 26-Feb-2011 Intent Claudia South EKG ([id number])By: Ed, On: 06-Mar-2010 Intent VIVIANA IMMUNIZ ADMNIN, 1 VAC, On: 28-Feb-2009 Intent SNGL/COMBO (41632)By: Claudia Walsh MD PNEUM VAC ADLT/IMUMNOSPR, On: 28-Feb-2009 Intent SBC/INTRM ([id number])By: Claudia Walsh MD EKG ([id number])By: Ed, On: 28-Feb-2009 Intent VIVIANA EKG (84339)By: Jillian ALVARADO, On: 08-Mar-2008 Intent Claudia South Toradol Injection, 30 mg On: 17-Apr-2007 Intent (J1885)By: Celestina NUGENT, Comments: Lot #: [id number] date: 01/15Amount given: 30 mg/1 mlRoute: IMSite given: Right hipGiven by: JESÚS Guerrier Radiology - ChestBy: Jillian On: 21-Feb-2006 Intent Claudia ALVARADO Nuclear Stress Test/Stress On: 21-Feb-2006 Intent SPECT/TreadmillBy: Claudia Walsh MD Planned Medications INJECTION, KETOROLAC TROMETHAMINE, PER 15 MG Ordered: 25-Apr-2017 Pending Ciesa SOLAR TECH, Shilpa Ciesa SOLAR TECH, Shilpa INJECTION, KETOROLAC TROMETHAMINE, PER 15 MG Ordered: 28-Apr-2017 Pending Ciesa SOLAR TECH, Shilpa Ciesa SOLAR TECH, Shilpa INJECTION, KETOROLAC TROMETHAMINE, PER 15 MG Ordered: 09-May-2017 Pending Ciesa SOLAR TECH, Shilpa Ciesa SOLAR TECH, Shilpa INJECTION, TRIAMCINOLONE ACETONIDE, NOT OTHERWISE SPECIFIED, 10 MG Ordered: 09-May-2017 Pending Ciesa SOLAR TECH, Shilpa Ciesa SOLAR TECH, Shilpa Instructions Name Dates Details Current nonsmoker : How to access health information online Indication: Current nonsmoker Current nonsmoker : How to access health information online - Detail Indication: Current nonsmoker Current nonsmoker : Patient Instructions Indication: Current nonsmoker Lower back pain : How to access health information online Indication: Lower back pain Lower back pain : How to access health information online - Detail Indication: Lower back pain Lower back pain : Patient Instructions Indication: Lower back pain Sciatica, left side : How to access health information online Indication: Sciatica, left side Sciatica, left side : How to access health information online - Detail Indication: Sciatica, left side Sciatica, left side : Patient Instructions Indication: Sciatica, left side Hypertension : DISCONTINUED - URINALYSIS, AUTOMATED W/ MICRO ([id number]) Indication: Hypertension Hypertension : DISCONTINUED - CBC WITH MANUAL DIFF ([id number]) Indication: Hypertension Numbness and tingling of leg : How to access health information online Indication: Numbness and tingling of leg Numbness and tingling of leg : How to access health information online - Detail Indication: Numbness and tingling of leg Numbness and tingling of leg : Patient Instructions Indication: Numbness and tingling of leg Hypertension : How to access health information online Indication: Hypertension Hypertension : How to access health information online - Detail Indication: Hypertension Hypertension : Patient Instructions Indication: Hypertension Ear discomfort, left : How to access health information online Indication: Ear discomfort, left Ear discomfort, left : How to access health information online - Detail Indication: Ear discomfort, left Acute foreign body of left ear canal, initial encounter : Patient Instructions Indication: Acute foreign body of left ear canal, initial encounter Cough : How to access health information online Indication: Cough Cough : How to access health information online - Detail Indication: Cough Cough : Patient Instructions Indication: Cough Hypertension : How to access health information online Indication: Hypertension Hypertension : How to access health information online - Detail Indication: Hypertension Hypertension : Patient Instructions Indication: Hypertension Hypercholesterolemia : How to access health information online Indication: Hypercholesterolemia Hypercholesterolemia : How to access health information online - Detail Indication: Hypercholesterolemia Hypercholesterolemia : Patient Instructions Indication: Hypercholesterolemia Hypertension : Patient Instructions Indication: Hypertension Encounters Office Visit On: 11-Feb-2018 13:29 Encounter Reason: Sinusitis - Symptoms include nasal congestion, cheek pressure and forehead pressure. Onset was 1 week(s) ago. Associated symptoms include chills. Note for Sinusitis: brown/yellow mucousFeels plugged up.Encounter Diagnosis: End: 11-Feb-2018 13:48 Current nonsmoker, BMI 30.0-30.9,adult, Acute sinusitis, unspecified [facility] Nurse Visit On: 12-Jan-2018 15:19 Encounter Reason: InjectionsEncounter Diagnosis: Need for prophylactic vaccination and inoculation against influenza (Renamed from Need for immunization against influenza) End: 12-Jan-2018 15:25 [facility] Annotation/Addendum On: 09-May-2017 11:04 Encounter Diagnosis: Paresthesia and pain of extremity End: 09-May-2017 11:26 [facility] Office Visit On: 09-May-2017 9:54 Encounter Reason: Follow up tests - Diagnostic tests include MRI.Encounter Diagnosis: Hypertension, Lower back pain, BMI 30.0-30.9,adult, Current nonsmoker End: 09-May-2017 10:54 [facility] Annotation/Addendum On: 07-May-2017 16:22 Encounter Diagnosis: Lower back pain End: 07-May-2017 16:31 [facility] Office Visit On: 28-Apr-2017 13:11 Encounter Reason: Back Pain - The injury involved the lower back. Symptoms include back pain. Symptoms are located in the left lower back. The pain radiates to the buttock, thigh, lower leg and foot. Onset was 3 day(s) a End: 28-Apr-2017 13:41 go. The symptoms occur constantly (tingling comes and goes). Associated symptoms include leg numbness. Current treatment includes nonsteroidal anti-inflammatory drugs. Previous presentation included low er back pain, leg pain and leg numbness. Note for Back pain: Injury occured when bending overpt was seen on friday. had se from medication prescribed and is still in a lot of painHad reaction to medro l and meloxicam made him feel flushed and sweating. Still terrible pain down left leg, no incontinence of stool or urineThe shot gave some relief .Went to physical therapy recommend MRIEncounter Diagnosis: Sciatica, left side, BMI 30.0-30.9,adult, Current nonsmoker, Osteoarthritis of facet joint of lumbar spine, Paresthesia and pain of extremity [facility] Annotation/Addendum On: 28-Apr-2017 11:42 Encounter Diagnosis: Sciatica, left side, Hypertension End: 28-Apr-2017 11:45 [facility] Office Visit On: 25-Apr-2017 13:36 Encounter Reason: Back Pain - The injury involved the lower back. Symptoms include back pain. Symptoms are located in the left lower back. The pain radiates to the buttock, thigh, lower leg and foot. Onset was 3 day(s) a End: 25-Apr-2017 14:02 go. The symptoms occur constantly (tingling comes and goes). Associated symptoms include leg numbness. Current treatment includes nonsteroidal anti-inflammatory drugs. Previous presentation included low er back pain, leg pain and leg numbness. Note for Back pain: Injury occured when bending overEncounter Diagnosis: Current nonsmoker, BMI 30.0-30.9,adult, Numbness and tingling of leg, Sciatica, left side [facility] Nurse Visit On: 16-Dec-2016 9:16 Encounter Diagnosis: Need for prophylactic vaccination and inoculation against influenza End: 16-Dec-2016 12:26 [facility] Office Visit On: 22-May-2016 14:10 Encounter Reason: Pre-Op Visit - The procedure scheduled is a Right Eye macular hole repair on June 28 2016. The surgeon for the procedure will be Dr Cj Mcrae. Pertinent medical history does not include previous anes End: 22-May-2016 14:51 thesia reaction. Pertinent social history includes aspirin use (baby aspirin). After surgery the patient plans to recover at home with family. Note for Pre-op visit: Surgery is sched June 11 Encounter Diagnosis: Hypertension, Hypercholesterolemia, BMI 31.0-31.9,adult, Current nonsmoker, Preop examination, Screening for prostate cancer [facility] Office Visit On: 22-Apr-2016 9:35 Encounter Diagnosis: Ear discomfort, left, Current nonsmoker, Acute foreign body of left ear canal, initial encounter End: 22-Apr-2016 9:50 [facility] Office Visit On: 31-Jan-2016 8:21 Encounter Reason: Cough - Symptoms include cough. The cough is described as productive (yellow-brown). Cough onset was 1 week(s) ago. The cough occurs constantly. Symptoms are described as worsening. Symptoms are exacerb End: 31-Jan-2016 8:38 ated by lying down. Previous presentation included a cough and muscle ache.Encounter Diagnosis: BMI 29.0-29.9,adult, Current nonsmoker, Cough, Bronchitis [facility] Nurse Visit On: 12-Jan-2016 8:17 Encounter Reason: Nurse procedure visit - The symptoms have been associated with other (flu).Encounter Diagnosis: Need for prophylactic vaccination and inoculation against influenza End: 12-Jan-2016 12:51 [facility] Phone Encounter On: 03-Nov-2015 11:53 Encounter Diagnosis: Encounter for screening colonoscopy End: 03-Nov-2015 11:56 [facility] Annotation/Addendum On: 18-Jul-2015 15:57 Encounter Diagnosis: Coronary artery disease End: 18-Jul-2015 15:58 [facility] Office Visit On: 18-Jul-2015 15:10 Encounter Reason: Follow up for chronic medical issues - The patient feels well with no complaints, has good energy level and is sleeping well. Patient has been compliant with instructions. Current medication use: no martínez End: 18-Jul-2015 15:46 e effects, compliant with dosing regimen and considered effective by patient. Patient sleeps 7 hours per night. Impact of disease: emotional impact-mild. Nutrition: balanced diet and supplemental vitami ns. The medical issues the patient is following up for include cardiac issues, high blood pressure, high cholesterol and other (diverticulosis, elevated bilirubin level ).Encounter Diagnosis: Hypertension, Tobacco abuse, in remission (Renamed from Tobacco dependence in remission), Hypercholesterolemia, Screening for prostate cancer, Obesity, unspecified, Coronary artery disease, Diverticulosis of colon, Total bilirubin, elevated, Encounter for routine history and physical exam for male [facility] Office Visit On: 06-Jan-2015 11:33 Encounter Reason: Injections - The medication the patient is here to receive is other (flu).Encounter Diagnosis: Need for prophylactic vaccination and inoculation against influenza End: 11-Jan-2015 10:40 [facility] Office Visit On: 21-Jul-2014 7:07 Encounter Reason: Follow up for chronic medical issues - The patient feels well with minor complaints, has good energy level and is sleeping well. Patient has been compliant with instructions. Current medication use: no End: 21-Jul-2014 7:31 side effects, compliant with dosing regimen and considered effective by patient. Patient sleeps 6 hours per night. Impact of disease: emotional impact-mild. Nutrition: balanced diet and supplemental vit amins. The medical issues the patient is following up for include cardiac issues, high blood pressure and high cholesterol.Encounter Diagnosis: Hypertension 401.1 (Renamed from Hypertension (401.0)), Hypercholesterolemia (272.0), Diverticulosis (562.10), Total bilirubin, elevated, Coronary Artery Disease (414.00), Obesity,unspecified (278.00), Well Male Exam (V70.0) [facility] Office Visit On: 27-Dec-2013 10:05 Encounter Reason: Injections - The medication the patient is here to receive is other (influenza).Encounter Diagnosis: NEED FOR PROPHYLACTIC VACCINATION AND INOCULATION AGAINST INFLUENZA (V04.81) End: 27-Dec-2013 12:43 [facility] Office Visit On: 16-Jul-2013 7:30 Encounter Reason: Follow up for chronic medical issues - The patient feels well with minor complaints, has good energy level and is sleeping well. Patient has been compliant with instructions. Current medication use: no End: 16-Jul-2013 8:00 side effects, compliant with dosing regimen and considered effective by patient. Patient sleeps 6 hours per night. Impact of disease: emotional impact-mild. Nutrition: balanced diet and supplemental vit amins. The medical issues the patient is following up for include cardiac issues, high blood pressure and high cholesterol.Encounter Diagnosis: Hypertension 401.1 (Renamed from Hypertension (401.0)), Obesity,unspecified (278.00), Diverticulosis (562.10), Hypercholesterolemia (272.0), Coronary Artery Disease (414.00), Total bilirubin, elevated, Well Male Exam (V70.0) [facility] Annotation/Addendum On: 06-Mar-2012 11:42 Encounter Diagnosis: Hypercholesterolemia (272.0) End: 06-Mar-2012 11:47 [facility] Office Visit On: 27-Feb-2012 14:04 Encounter Reason: Follow up for chronic medical issues - The patient feels well with no complaints, has good energy level and is sleeping well. Patient has been compliant with instructions. Current medication use: no martínez End: 27-Feb-2012 14:37 e effects, compliant with dosing regimen and considered effective by patient. Patient sleeps 7 hours per night. Impact of disease: emotional impact-mild. Nutrition: balanced diet and supplemental vitami ns. 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 (173.3), Coronary Artery Disease (414.00), Obesity,unspecified (278.00), Abnormal blood chemistry (790.6), Cholecystectomy, Calculus of kidney [facility] Phone Encounter On: 16-Jan-2012 15:08 Encounter Diagnosis: Unspecified Diagnosis End: 16-Jan-2012 15:11 [facility] Phone Encounter On: 08-Mar-2011 9:55 Encounter Diagnosis: Abnormal blood chemistry (790.6) End: 08-Mar-2011 10:07 [facility] Office Visit On: 26-Feb-2011 9:10 Encounter Reason: Follow up for chronic medical issues - The patient feels well with no complaints, has good energy level and is sleeping well. Patient has been compliant with instructions. Current medication use: no martínez End: 26-Feb-2011 9:47 e effects, compliant with dosing regimen and considered effective by patient. Patient sleeps 7 hours per night. Impact of disease: emotional impact-mild. Nutrition: balanced diet and supplemental vitami ns. The medical issues the patient is following up for include cardiac issues, high blood pressure and high cholesterol.Encounter Diagnosis: Coronary Artery Disease (414.00), Hypercholesterolemia (272.0), Hypertension 401.1 (Renamed from Hypertension (401.0)), Obesity,unspecified (278.00), Well Male Exam (V70.0), Other malignant neoplasm of skin of other and unspecified parts of face (173.3) [facility] Office Visit On: 06-Mar-2010 9:57 Encounter Reason: Follow up for chronic medical issues - The patient feels well with no complaints, has good energy level and is sleeping well. Patient has been compliant with instructions. Current medication use: no martínez End: 06-Mar-2010 10:32 e effects, compliant with dosing regimen and considered effective by patient. Patient sleeps 7 hours per night. Impact of disease: emotional impact-mild. Nutrition: balanced diet and supplemental vitami ns. The medical issues the patient is following up for include cardiac issues and high blood pressure.Encounter Diagnosis: Hypertension 401.1 (Renamed from Hypertension (401.0)), Low back pain (724.2), Diverticulosis (562.10), Cholecystectomy, Displacement of intervertebral disc, site unspecified, without myelopathy (722.2), Calculus of kidney (592.0), Obesity,unspecified (278.00), Well Male Exam (V70.0), Coronary Artery Disease (414.00), Hypercholesterolemia (272.0) [facility] Annotation/Addendum On: 28-Feb-2009 9:47 [facility] End: 28-Feb-2009 9:48 Office Visit On: 28-Feb-2009 9:01 Encounter Reason: Physical male exam - Last seen between 6-12 months ago. General health: feels well with no complaints ,has good energy level and is sleeping well. The patient's appetite is normal. Nutrition: normal/beulah End: 28-Feb-2009 9:38 quate. Exercises 3 days per week. Sleeps on average 7 hours per night. Normal bowel and bladder habits. Safety measures include appropriate use of safety belts and home smoke detectors. There are no cur rent emotional problems. The patient's libido is normal. Preventative measures done by patient are screening, colonoscopy ([address] Kim ) and screening, visual acuity (2008 wears reading glasses ). Encounter Diagnosis: Hypertension 401.1 (Renamed from Hypertension (401.0)), Diverticulosis (562.10), Displacement of intervertebral disc, site unspecified, without myelopathy (722.2), Calculus of kidney (592.0), Low back pain (724.2), Well Male Exam (V70.0) [facility] Office Visit On: 05-Jan-2009 8:09 Encounter Reason: Flu like symptoms - The onset of the flu like symptoms has been gradual and they have been occurring in an intermittent pattern for 3 weeks. The course has been recurrent. The flu like symptoms are described as mild. End: 05-Jan-2009 8:31 Encounter Diagnosis: Acute sinusitis, unspecified (461.9), Cough (786.2) [facility] Office Visit On: 08-Mar-2008 8:41 Encounter Reason: Follow up for chronic medical issues - The patient feels well with no complaints ,has good energy level and is sleeping well. Patient has been compliant with instructions. Current medication use: no martínez End: 08-Mar-2008 9:18 e effects ,compliant with dosing regimen and considered effective by patient. Patient sleeps 8 hours per night. Impact of disease: emotional impact-mild. Nutrition: balanced diet. The medical issues the patient is following up for include high blood pressure and high cholesterol. Encounter Diagnosis: Hypertension 401.1 (Renamed from Hypertension (401.0)), Influenza with other respiratory manifestations (487.1), Seborrheic dermatitis, unspecified (690.10), Low back pain (724.2), Diverticulosis (562.10), Cholecystectomy, Displacement of intervertebral disc, site unspecified, without myelopathy (722.2), Calculus of kidney (592.0), BRONCHITIS, NOT SPECIFIED ACUTE OR CHRONIC (490.), Chest pain (786.59), Well Male Exam (V70.0) [facility] Office Visit On: 17-Apr-2007 10:31 Encounter Reason: Flu like symptoms - The onset of the flu like symptoms has been sudden and they have been occurring in a persistent pattern for 3 days. The course has been constant. The flu like symptoms are described as severe. End: 17-Apr-2007 10:57 Encounter Diagnosis: Influenza with other respiratory manifestations (487.1), Seborrheic dermatitis, unspecified (690.10) [facility] Office Visit On: 25-Apr-2006 9:22 Encounter Diagnosis: BRONCHITIS, NOT SPECIFIED ACUTE OR CHRONIC (490.) End: 25-Apr-2006 9:23 [facility] Office Visit On: 21-Feb-2006 7:06 Encounter Reason: Follow up for chronic medical issues - The patient feels well with no complaints. Patient has been compliant with instructions. Current medication use: no side effects. Patient sleeps 4 hours per night. End: 21-Feb-2006 7:37 Impact of disease: no overall impact. Nutrition: balanced diet. The medical issues the patient is following up for include high blood pressure and other (low back pain, diverticulitis ). , [ADDITIONAL REASON] Chest pain - The onset of the pain has been sudden and has been occurring for 5 months (every week last one bad). The pain is described as a moderate to severe (had at work 1 week a go) pressure sensation. The pain is described as being located in the substernal area. The pain does not radiate. The symptoms have no aggravating factors. The symptoms have no relieving factors. The sy mptoms have been associated with dyspnea (with exertion note, not with CP) and heartburn (not with CP, better if eat right). Note for Chest pain: feel pass out when gasp for air and dyspnea, no etoh or nsaids, on ASA Encounter Diagnosis: Hypertension (401.0), Diverticulosis (562.10), Low back pain (724.2), Chest pain (786.59) [facility] Historical Summary On: 17-Feb-2006 11:01 [facility] End: 17-Feb-2006 11:14 [facility]; aurea guarantor
--- OUTSIDE RECORDS SUMMARY | 2018-03-17 21:27 | XMS RPT_ITS | Continuity of Care Document ---
:1955 Author Organization [facility] Address [facility] [place] [address] Phone Care Team Providers Name Role Phone Addy BUCHANANDarcie E Unavailable Phuc Fisher Unavailable Jillian ALVARADO, Claudia South Unavailable Toan Francisco Unavailable Mt Santos Unavailable Dr. Elkin Silverio Unavailable Long MASTER PLANNER, Ana Maria L Unavailable Unavailable Slarb MASTER PLANNER, Liz Unavailable Unavailable Unavailable Unavailable Problems Name Dates Details Acute foreign body of left ear canal, initial encounter (T16.2XXA, 931) Comments: removed foreign body in left ear canal with forceps without difficulty Status: Active BMI 30.0-30.9,adult (Z68.30, V85.30) Status: [...] exam for male (Z00.00, V70.0) Comments: scope 2006 good due next month. psa rectal 5-16 Status: Active Encounter for screening colonoscopy (Z12.11, V76.51) Status: Active Hypercholesterolemia (E78.00, 272.0) Comments: reveiwed with patient recent tests and ldl much better with weight loss. told with guidelines should be on statin with CAD adn father early [place]. pt refuse understand risk and benefits Status: [...] days Quantity: 30 {Tablet} Refills: 0 Ordered:18-Jul-2015 Jillian ALVARADO, Claudia South Start : 18-Jul-2015 Active Fish Oil Double Strength 1200 MG Oral Capsule 1 (one) Capsule daily for 0 days Quantity: 30 {Capsule} Refills: 0 Ordered:22-May-2016 Addy BUCHANAN, Darcie Darcie Barrera CNP Start : 22-May-2016 Active Lisinopril 10 MG Oral Tablet 1 Tablet QD for 0 days Quantity: 90 {Tablet} Refills: 3 Ordered:21-Aug-2017 Addy BUCHANAN, Darcie Lees CNP Start : 21-Aug-2017 Active Osteo Bi-Flex Adv Double St Oral Tablet 1 (one) Tablet daily for 0 days Quantity: 30 {Tablet} Refills: 0 Ordered:22-May-2016 Addy BUCHANAN, Darcie Lees CNP Start : 22-May-2016 Active TraMADol HCl ER 100 MG Oral Capsule Extended Release 24 Hour 1 (one) Capsule Capsule qday x 3 days for 0 days Quantity: 3 {Capsule} Refills: 0 Ordered:28-Apr-2017 Liz Patel LPN Start : 28-Apr-2017 Active ADVICOR, 500-20MG (Oral Tablet Extended Release 24 Hour) daily (500-20 MG) Inactive AUGMENTIN, 875-125MG (Oral Tablet) 1 Tablet bid for 14 days Quantity: 28 {Tablet} Refills: 0 Ordered:05-Jan-2009 Darcie Daly CNP, CNP, Mary E Start : 05-Jan-2009 End : 28-Feb-2009 Inactive Cyclobenzaprine HCl 5 MG Oral Tablet 1 (one) Tablet Tablet tid prn for muscle spasm for 0 days Quantity: 60 {Tablet} Refills: 0 Ordered:09-May-2017 Lzi Patel LPN Start : 28-Apr-2017 End : [...] : 31-Jan-2016 End : 22-Apr-2016 Inactive ZOSTAVAX, 48006HQG/0.65ML (Subcutaneous Solution Reconstituted) 1 For Solution For [...] (R79.9, 790.6) Status: Inactive as of 16-Jul-2013 Acute sinusitis, unspecified (J01.90, 461.9) Status: Inactive as of 28-Feb-2009 BMI 29.0-29.9,adult (Z68.29, V85.25) Status: Inactive as [...] macular hole surgery per Dr. Efren Mcrae [facility] Status: Inactive as of 25-Apr-2017 Seborrheic dermatitis, unspecified (L21.9, 690.10) Status: Inactive as of 12-Sep-2008 Unspecified Diagnosis Status: Inactive as of 16-Jul-2013 Procedures Procedure Dates Details COLONOSCOPY, DIAGNOSTIC (90890) Completed Aug-2005 Date Value Details 06-Jan-2018 Abdomen/Pelvis WITH Contrast Result: Comments: See Note; NOTES: [facility] Imaging Services [address] [place] [address] Abdomen/Pelvis WITH Contrast MR#: [id number] Acct: [id number] Name: SANDOR CORTEZ Rep #: [id number] : 1955 M 62 From: Sreedhar Correa MD PCP: Darcie Daly NP Status: REG CLI Study: Abdomen/Pelvis WITH Contrast Date of Exam: 01/06/18 Exam# [id number] Ordering Dr: Sushma Castano STUDY: CT ABDOMEN [...] Sreedhar Correa MD at 13:52 EDT Tel [phone], Service support , CC: Darcie Daly DIRECTOR OF PHYSIOTHERAPY SERVICES; Sushma Tavera Industrial Relations Manager: Signed 29-Dec-2017 Surgery Visit Report Result: Comments: See Note; NOTES: [facility] [address] [place] [address] OFFICE VISIT Date of Service: 12/29/17 MR#: [id number] Acct: [id number] Name: SANDOR CORTEZ Rep #: [id number] : 1955 Provider: Samir Kim MD Age/Sex: 62/M Location: [facility] Status: Signed Intake Vital Signs12/29/17 Height 5 ft 11.5 in 12/29/17 Weight: 210 lb 5 oz 8 Body Mass Index (BMI) 28.9 12/29/17 Blood Pressure 138/89 H Intake Visit Reasons: Hernia Chief Complaint: left inguinal pain/ lump Rat Breeder Required: No Is patient in pain?: Yes Pain scale (1-10) : 5 Allergies No Known Allergies Allergy (Verified 12/29/17 14:25) Medications aspirin 81 mg chewable tablet 81 mg PO DAILY 12/29/17 [History Confirmed 12/29/17] famotidine 20 mg tablet 20 mg PO DA BRI 12/29/17 [History Confirmed 12/29/17] glucosamine WNa-V0-Epsictqsu lizzy 1,500 mg-400 unit-100 mg tablet 1 tab PO DAILY 12/29/17 [History Confirmed 12/29/17] lisinopril 10 mg tablet 10 mg PO DAILY 12/29/17 [History Confirmed 12/29/17] omega-3 fatty acids 1,000 mg capsule 1,000 mg PO DAILY 12/29/17 [History Confirmed 12/29/17] PFS Medical History Back pain (Acute) GERD (gastroesophageal [...] is a 62 M who presents to [facility] office today for for evaluation and left [...] person, oriented to place, oriented to time [facility] Head: normocephalic, atraumatic Ears: external e ars [...] PT (1) Result: Comments: See Note; NOTES: [facility] Physical Therapy [facility] [address] [place] [address] Fax REEVALUATION / MEDICARE [facility]UTIST[facility] SOLOR[facility] PHYSICAL THERAPY MR#: [id number] Acct: [id number] Name: SANDOR CORTEZ Rep #: [id number] : 1955 61 From: Giovana Ahumada PT, Cert. MDT Referring Dr.: Darcie Daly DIRECTOR OF PHYSIOTHERAPY SERVICES Status: REG RCR Ins urance: [facility] [address] SELF PAY INSURANCE Darcie Daly NP.LEIGHA It [...] SUBMITTED HIS CASE TO DR. MCKENNA AT [facility] AND IS AWAITING A RESPONSE FROM THEM. [...] do not hesitate to contact me at [phone] by phone or if you have questions or concerns regarding this new plan of care! Sincerely, Giovana Ahumada <Electronically signed b y Giovana Ahumada PT, Cert. MDT> 05/22/17 1238 CC: Darcie Daly NP CORTES Signed For Medicare only, by signing this I certify the plan of care. Physicians Signature Date 03-May-2017 Spine Lumbar (Routine) Result: Comments: See Note; NOTES: [facility] Imaging Services [address] [place] [address] Spine Lumbar (Routine) MR#: [id number] Acct: [id number] Name: SANDOR CORTEZ Rep #: [id number] : 1955 M 61 From: Aquiles Garcia MD PCP: Darcie Daly NP Status: REG CLI Study: Spine Lumbar (Routine) Date of Exam: 05/03/17 Exam# [id number] Ordering Dr: Darcie Daly STUDY: MRI LUMBAR [...] moderate right-sided and moderate left-sided neural foraminal balke rowing with marginal osteophytes approximating the right exiting L4 nerve root. L5-S1 level: Bilateral facet hypertrophy with grade 1 anterolisthesis of L5 on S1 and a pseudodisc with a superimposed sm all central disc protrusion resulting in mild flattening of the ventral thecal sac ahee-nr-jsrdqjwn bilateral neural foraminal narrowing. No paraspinous soft tissue mass or fluid collections. IMPRESSI ON: Grade 1 anterolisthesis of L5 on S1 with L5 level bilateral spondylolysis and spondylotic changes predominating at L2-L3 level. Electronically Signed: Aquiles Garcia, at 10:59 EST Tel , Service support , [phone] MRI/Spine Lumbar (Routine) CC: Darcie Daly NP Industrial Relations Manager: Signed 03-May-2017 Spine Lumbar (Routine) Result: Comments: See Note; NOTES: [facility] Imaging Services [address] [place] [id number] Spine Lumbar (Routine) MR#: [id number] Acct: [id number] Name: SANDOR CORTEZ Rep #: [id number] : 1955 M 61 From: Aquiles Garcia MD PCP: Darcie Daly NP Status: REG CLI Study: Spine Lumbar (Routine) Date of Exam: 05/03/17 Exam# [id number] Ordering Dr: Darcie Daly ADDENDUM by Aquiles [...] 9:41 EST Tel , Service support , 05/10/1741 Date cc: Darcie Daly NP * Signed [...] mild flattening of the ventral thecal sac nekc-it-xevftggd bilateral neural foraminal narrowing. No paraspinous soft tissue mass or fluid collections. IMPRESSION: Grade 1 anterolisthesis of L5 on S1 with L5 level bilateral spondylolysis and spondylotic changes predominating at L2-L3 level. Electronically Signed: Aquiles Garcia, at 10:59 EST Tel , Service support [phone], MRI/Spine Lumbar (Routine) CC: Darcie Daly NP Industrial Relations Manager: Signed 02-May-2017 Orbits for Foreign Body Result: Comments: See Note; NOTES: [facility] Imaging Services [address] [place] [address] Orbits for Foreign Body MR#: [id number] Acct: [id number] Name: SANDOR CORTEZ Rep #: [id number] : 1955 M 61 From: Matt Nixon MD PCP: Darcie Daly NP Status: REG CLI Study: Orbits for Foreign Body Date of Exam: 05/03/17 Exam# [id number] Ordering Dr: Darcie Daly STUDY: TO THE ORBITS, RIGHT REASON FOR EXAM: Male, 61 years old. MRI clearance COMPARISON: None. FINDINGS: 2 views demonstrate no metallic orbital foreign body. RAD/Orbits for Foreign Body IMPRESSION: No metallic orbital foreign body. Electronically Signed: Matt Nixon MD at 7:46 EST Tel , Service support , CC: Darcie Daly NP Industrial Relations Manager: Signed 01-May-2017 Inital Evaluation (1) - PT Result: Comments: See Note; NOTES: [facility] Physical Therapy [address] [place] [address] Fax REHABILITATION SERVICES INITIAL EVALUATION MR#: [id number] Acct: [id number] Name: SANDOR CORTEZ Rep #: [id number] : 1955 61 From: Quang Parra DPT Referring Dr.: Darcie Daly NP Status: REG RCR Insurance: [facility] CAR E [id number] SELF PAY INSURANCE Patient's Visit Information SANDOR CORTEZ is a 61 year old M referred to Physical Therapy by Darcei Daly NP.[facility] with a diagnosis of Sciatica. Date of [...] Response: No effect Lumbar Standing: Right Side Chester - Symptoms During Testing: Increases Lumbar Standing: Right Side Chester - Symptoms After Testing: No worse Lumbar Standing: Left Side Chester - Mechanical Response: No effect Lumbar Standing: Left Side Chester - Symptoms During Testing: Increases Lumbar Standing: Left Side Chester - Symptoms After Testing: No worse Comments:: [...] to be FAXED BACK to us at [phone] for Medicare purposes. Please let me know if there are questions or concer ns regarding this plan of care. Physician Signature: Date: <Electronically signed by Quang Parra DPT> 05/01/17 0849 C C: Darcie Daly NP CLS Signed For Medicare only, by signing this I certify the plan of care. Physicians Signature Date 25-Apr-2017 L/S Spine Min 4 Views Result: Comments: See Note; NOTES: [facility] Imaging Services [address] [place] [address] L/S Spine Min 4 Views MR#: [id number] Acct: [id number] Name: SANDOR CORTEZ Rep #: [id number] : 1955 M 61 From: Sreedhar Correa MD PCP: Darcie Daly NP Status: REG CLI Study: L/S Spine Min 4 Views Date of Exam: 04/25/17 Exam# [id number] Ordering Dr: Darcie Daly STUDY: X-RAY - [place] MBAR SPINE REASON FOR EXAM: Male, 61 [...] Sreedhar Correa MD at 14:50 EST Tel [phone], Service support , CC: Darcie Daly NP Industrial Relations Manager: Signed 18-Jul-2015 ELECTROCARDIOGRAM, COMPLETE (ECG) (22918) Comments: see scanned document of test done to see results reviewed today with patient Result: [MEASUREMENTS ANALYSIS] Date of Test: 07/18/2015 16:02:16; Heart Rate: 60; MD Interval: 138; QRS: 102; QT Interval: 428; Corrected QT Interval (QTc): 428; P Wave Elma: 30; QRS Wave Elma: 31; T Wave Elma : 20; Blood Pressure: 124/86 [ECG DIAGNOSTIC STATEMENTS] Date of Test: 07/18/2015 16:02:16; Summary: Sinus Rhythm Voltage criteria for LVH (R(V6) exceeds 2.26 mV) -Voltage criteria w/o ST/T abnormality may be normal. 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 Status: Active Smoking Status Name Dates Details Former smoker Vital Signs Date Test Result Details 8-Eff-856446:30 Pulse 63 /min Comments: Pattern: Regular Respiration [...] kg/m2 Body Surface Area Calculated 2.2 m2 32-Ocx-756997:17 Pulse 82 /min Comments: Pattern: Regular Respiration [...] kg/m2 Body Surface Area Calculated 2.11 m2 49-Azo-073119:04 Pulse 64 /min Comments: Pattern: Regular Respiration [...] 0.00 cm Results Date Description Value Details 73-Zod-16821:06 CREATININE FINGERSTICK Comments: [facility] [place] [place] [address] EGFR WB > 60.0000 mL/min (Normal) CREATININE WB 1.2 mg/dL (Normal) Range: 0.70-1.30 18-Cwi-672767:25 PSA (PROSTATE SPECIFIC Comments: PATIENT NOT FASTINGPERFORMED BY: [employer] [place] [id number] ANTIGEN) (V76.44) Prostate Specific Ag, 0.8 ng/mL (Normal) Range: 0.0-4.0 Serum Comments: TRIBAX ECLIA methodology. .According to the [employer] U[employer] Association, Serum PSA shoulddecrease and remain at undetectable levels after radicalprostatectomy. The AUA defines biochemical recurrence as an initialPSA value 0.2 ng/mL or greater followed by a subsequent confirmatoryPSA value 0.2 ng/mL or greater.Values obtained with d ifferent assay methods or kits cannot be usedinterchangeably. Results cannot be interpreted as absolute evidenceof the presence or absence of malignant disease. 60-Grv-724287:25 MICROALBUMIN: CREATININE RATIO Comments: PATIENT NOT FASTINGPERFORMED BY: [facility] [id number] ([id number]) AND (73842) Microalb/Creat Ratio <3.0 {mg/g_creat} (Normal) Range: 0.0-30.0 Microalbumin, Urine <3.0 ug/mL (Normal) Creatinine, Urine 100.5 mg/dL (Normal) 99-Ccw-725159:25 URINALYSIS (84667) Comments: PATIENT NOT FASTINGPERFORMED BY: [facility]UpP[facility] Specialized HospitalEcxwry4869 [facility] [id number] Microscopic Examination MICNIP (Normal) Comments: Microscopic not indicated and not performed. Nitrite, Urine Negative (Normal) Urobilinogen,Semi-Qn 0.2 mg/dL (Normal) Range: 0.2-1.0 Bilirubin Negative (Normal) Occult Blood Negative (Normal) Ketones Negative (Normal) Glucose Negative (Normal) Protein Negative (Normal) WBC Esterase Negative (Normal) Appearance Clear (Normal) Urine-Color Yellow (Normal) pH 6.5 (Normal) Range: 5.0-7.5 Specific Roosevelt 1.016 (Normal) Range: 1.005-1.030 :25 PT (PROTHROMBIN TIME) (87271) Comments: PATIENT NOT FASTINGPERFORMED BY: [employer] Nxmlri2965 [facility] [id number] Prothrombin Time 11.1 {sec} (Normal) Range: 9.1-12.0 INR 1.1 (Normal) Range: 0.8-1.2 Comments: Reference interval is for non-anticoagulated patients. . Suggested INR therapeutic range for Vitamin K anta gonist therapy: Standard Dose (moderate intensity therapeutic range): 2.0 - 3.0 Higher intensity therapeutic range 2.5 - 3.5 75-Jza-335404:25 CBC, Platelets & Auto Diff Comments: PATIENT NOT FASTINGPERFORMED BY: [facility] Special[facility] HospitalXicwqd4684 [facility] [id number] ([id number]) Immature Grans (Abs) 0.0 {x10E3/uL} (Normal) Range: [...] 4.14-5.80 WBC 4.9 {x10E3/uL} (Normal) Range: 3.4-10.8 99-Amr-971775:25 Metabolic Panel, Comprehensive Comments: PATIENT NOT FASTINGPERFORMED BY: LabCoPSE&G Children's Specialized HospitalStmnds2639 [facility] [id number] ([id number]) ALT (SGPT) 15 [iU]/L (Normal) Range: 0-44 [...] 87 mg/dL (Normal) Range: 65-99 :59 URINALYSIS (12783) Comments: PATIENT NOT FASTINGPERFORMED BY: [facility] [id number] Information: [id number] Microscopic Examination MICNIP (Normal) Comments: Microscopic not indicated and not performed. Nitrite, Urine Negative (Normal) Urobilinogen,Semi-Qn 1.0 mg/dL (Normal) Range: 0.2-1.0 Bilirubin Negative (Normal) Occult Blood Negative (Normal) Ketones Negative (Normal) Glucose Negative (Normal) Protein Negative (Normal) WBC Esterase Negative (Normal) Appearance Clear (Normal) Urine-Color Yellow (Normal) pH 7.5 (Normal) Range: 5.0-7.5 Specific Roosevelt 1.019 (Normal) Range: 1.005-1.030 :23 PSA (Prostate Specific Comments: PATIENT WAS FASTINGPERFORMED BY: [facility]6370 [facility] [id number] Antigen), Screening (38035) Prostate Specific Ag, 0.6 ng/mL (Normal) Range: 0.0-4.0 Serum Comments: Amee ECLIA methodology. .According to the [employer] U[employer] Association, Serum PSA shoulddecrease and remain [...] Panel, Comprehensive Comments: PATIENT WAS FASTINGPERFORMED BY: [employer] Whbjvx0283 [facility] [id number] (49635) ALT (SGPT) 15 [iU]/L (Normal) Range: 0-44 [...] Glucose, Serum 88 mg/dL (Normal) Range: 65-99 :23 Lipid Panel (08390) Comments: PATIENT WAS FASTINGPERFORMED BY: [facility]UpP[facility] Special[facility] HospitalMkiwdw7726 [facility] [id number] LDL/HDL Ratio 2.5 {ratio_units} (Normal) Range: 0.0-3.6 [...] Cholesterol, Total 184 mg/dL (Normal) Range: 100-199 74-Xtr-579190:23 CBC WITH MANUAL DIFF Comments: PATIENT WAS FASTINGPERFORMED BY: LabCoP[facility] Specialized HospitalWyvprf7467 [facility] [id number] Information: [id number] (91191) Immature Grans (Abs) 0.0 {x10E3/uL} (Normal) Range: [...] With Differential/Platelet Comments: PATIENT WAS FASTINGPERFORMED BY: KAILEY CoachUpP[facility] Specialized HospitalMprnai6560 [facility] [id number] Information: [id number] Immature Grans (Abs) 0.0 {x10E3/uL} (Normal) Range: [...] 4.14-5.80 WBC 3.9 {x10E3/uL} (Normal) Range: 3.4-10.8 :20 Comp. Metabolic Panel (14) Comments: PATIENT WAS FASTINGPERFORMED BY: [facility]6370 [facility] [id number] ALT (SGPT) 17 [iU]/L (Normal) Range: 0-44 [...] Glucose, Serum 95 mg/dL (Normal) Range: 65-99 85-Fqk-11147:20 Lipid Panel With LDL/HDL Comments: PATIENT WAS FASTINGPERFORMED BY: LabCoP[facility] Special[facility] HospitalNelets5708 [facility] [id number] Ratio LDL/HDL Ratio 2.5 {ratio_units} (Normal) Range: [...] Microscopic Examination Comments: PATIENT WAS FASTINGPERFORMED BY: [facility]70 [facility]ault[facility] [id number] Bacteria None seen (Normal) Mucus Threads Present (Normal) Epithelial Cells (non renal) None seen {/hpf} (Normal) Range: 0 - 10 RBC None seen {/hpf} (Normal) Range: 0 - 2 WBC 0-5 {/hpf} (Normal) Range: 0 - 5 :20 Prostate-Specific Ag, Serum Comments: PATIENT WAS FASTINGPERFORMED BY: [employer]6370 [facility] [id number] Prostate Specific Ag, 0.8 ng/mL (Normal) Range: 0.0-4.0 Serum Comments: TRIBAX ECLIA methodology. .According to the [employer] Urological Association, Serum PSA shoulddecrease and remain [...] Urinalysis, Complete Comments: PATIENT WAS FASTINGPERFORMED BY: [facility]6370 [facility] Steelwedge SoftwareNorth [facility] [id number] Microscopic Examination See below: (Normal) Comments: Microscopic was indicated and was performed. Microscopic Examination MICRON (Normal) Comments: Microscopic follows if indicated. Nitrite, Urine Negative (Normal) Urobilinogen,Semi-Qn 0.2 mg/dL (Normal) Range: 0.0-1.9 Bilirubin Negative (Normal) Occult Blood Negative (Normal) Ketones Negative (Normal) Glucose Negative (Normal) Protein Negative (Normal) WBC Esterase Negative (Normal) Appearance Clear (Normal) Urine-Color Yellow (Normal) pH 7.0 (Normal) Range: 5.0-7.5 Specific Roosevelt 1.019 (Normal) Range: 1.005-1.030 :09 BILIRUBIN, TOTAL (64721) Comments: PATIENT NOT FASTINGPERFORMED BY: [place] 3596370 [facility] [id number] Information: [id number] Bilirubin, Indirect 0.48 mg/dL (Normal) Range: 0.10-0.80 Bilirubin, Direct 0.22 mg/dL (Normal) Range: 0.00-0.40 Bilirubin, Total 0.7 mg/dL (Normal) Range: 0.0-1.2 :52 Hemoglobin Glyclated (HGB A1C) Comments: PATIENT WAS FASTINGPERFORMED BY: [address] [id number] ([id number]) Hemoglobin A1c 5.6 % (Normal) Range: 4.8-5.6 Comments: . Increased risk for diabetes: 5.7 - 6.4 Diabetes: >6.4 Glycemic control for adults with diabetes: <7.0 :52 Lipid Panel (61681) Comments: PATIENT WAS FASTINGPERFORMED BY: [address] [id number] Information: [id number] LDL/HDL Ratio 2.1 {ratio_units} (Normal) Range: 0.0-3.6 LDL Cholesterol Calc 106 mg/dL (Abnormal) Range: 0-99 VLDL Cholesterol Rafi 14 mg/dL (Normal) Range: 5-40 HDL Cholesterol 51 mg/dL (Normal) Comments: According to ATP-III Guidelines, HDL-C >59 mg/dL is considered anegative risk factor for CHD. Triglycerides 71 mg/dL (Normal) Range: 0-149 Cholesterol, Total 171 mg/dL (Normal) Range: 100-199 63-Ode-472091:58 PSA (PROSTATE SPECIFIC Comments: PATIENT WAS FASTINGPERFORMED BY: [address] [id number] ANTIGEN) (V76.44) Prostate Specific Ag, 0.7 ng/mL (Normal) Range: 0.0-4.0 Serum Comments: Amee ECLIA methodology. .According to the [employer] U[employer] Association, Serum PSA shoulddecrease and remain at undetectable levels after radicalprostatectomy. The AUA defines biochemical recurrence as an initialPSA value 0.2 ng/mL or greater followed by a subsequent confirmatoryPSA value 0.2 ng/mL or greater.Values obtained with d ifferent assay methods or kits cannot be usedinterchangeably. Results cannot be interpreted as absolute evidenceof the presence or absence of malignant disease. 99-Bnt-371878:58 METABOLIC PANEL, COMPREHENSIVE Comments: PATIENT WAS FASTINGPERFORMED BY: LabCoPSE&[facility] Specialized HospitalXjadap3846 [facility] [id number] (24678) ALT (SGPT) 24 [iU]/L (Normal) Range: 0-44 [...] mg/dL (Abnormal) Range: 65-99 :58 LIPID PANEL (60159) Comments: PATIENT WAS FASTINGPERFORMED BY: [facility]6370 [facility] [id number] LDL/HDL Ratio 2.5 {ratio_units} (Normal) Range: 0.0-3.6 LDL Cholesterol Calc 141 mg/dL (Abnormal) Range: 0-99 VLDL Cholesterol Rafi 20 mg/dL (Normal) Range: 5-40 Cholesterol, Total 217 mg/dL (Abnormal) Range: 100-199 HDL Cholesterol 56 mg/dL (Normal) Comments: According to ATP-III Guidelines, HDL-C >59 mg/dL is considered anegative risk factor for CHD. Triglycerides 98 mg/dL (Normal) Range: 0-149 :58 CBC WITH MANUAL DIFF Comments: PATIENT WAS FASTINGPERFORMED BY: [facility]UpP[facility] Specialized HospitalJvvkjx6879 [facility] [id number] Information: [id number] (28879) Immature Grans (Abs) 0.0 {x10E3/uL} (Normal) Range: [...] 4.14-5.80 WBC 7.1 {x10E3/uL} (Normal) Range: 4.0-10.5 30-Svb-810912:45 FOLIC ACID SERUM (07062) Comments: PATIENT NOT FASTINGPERFORMED BY: [facility]6370 [facility] [id number] Information: [id number] Folate (Folic Acid), Serum >19.9 ng/mL (Normal) Comments: Indeterminate: 2.2 - 3.0 Deficient: <2.2 02-Dse-862118:45 Vitamin B-12 (cyanocobalamin) Comments: PATIENT NOT FASTINGPERFORMED BY: [facility] [facility] [id number] ([id number]) Vitamin B12 463 pg/mL (Normal) Range: 211-946 83-Kgp-626226:45 TSH (33300) Comments: PATIENT NOT FASTINGPERFORMED BY: [facility] [id number] TSH 1.120 {uIU/mL} (Normal) Range: 0.450-4.500 10-Wvm-236612:41 Microscopic Examination Comments: PATIENT WAS FASTINGPERFORMED BY: [facility]6[address] [facility] [id number] Bacteria Few (Normal) Epithelial Cells (non renal) None seen {/hpf} (Normal) Range: 0 - 10 RBC 0-3 {/hpf} (Normal) Range: 0 - 3 WBC 0-5 {/hpf} (Normal) Range: 0 - 5 78-Crf-870435:41 METABOLIC PANEL, COMPREHENSIVE Comments: PATIENT WAS FASTINGPERFORMED BY: [facility]6[address] [facility] [id number] ([id number]) ALT (SGPT) 19 [iU]/L (Normal) Range: 0-55 [...] Glucose, Serum 87 mg/dL (Normal) Range: 65-99 95-Rnm-442400:41 PSA (PROSTATE SPECIFIC Comments: PATIENT WAS FASTINGPERFORMED BY: [facility]6[address] [facility] [id number] ANTIGEN) (V76.44) Prostate Specific Ag, 0.7 ng/mL (Normal) Range: 0.0-4.0 Serum Comments: TRIBAX ECLIA methodology. .According to the [employer], Serum PSA shoulddecrease and remain at undetectable levels after radicalprostatectomy. The AUA defines biochemical recurrence as an initialPSA value 0.2 ng/mL or greater followed by a subsequent confirmatoryPSA value 0.2 ng/mL or greater.Values obtained with d ifferent assay methods or kits cannot be usedinterchangeably. Results cannot be interpreted as absolute evidenceof the presence or absence of malignant disease. 22-Zmp-270058:41 URINALYSIS, W/ MICRO (56642) Comments: PATIENT WAS FASTINGPERFORMED BY: [facility] [id number] Microscopic Examination See below: (Normal) Microscopic Examination MICRON (Normal) Comments: Microscopic follows if indicated. Nitrite, Urine Negative (Normal) Urobilinogen,Semi-Qn 0.2 mg/dL (Normal) Range: 0.0-1.9 Bilirubin Negative (Normal) Occult Blood Negative (Normal) Ketones Negative (Normal) Glucose Negative (Normal) Protein Negative (Normal) WBC Esterase Negative (Normal) Appearance Clear (Normal) Urine-Color Yellow (Normal) pH 7.0 (Normal) Range: 5.0-7.5 Specific Roosevelt 1.020 (Normal) Range: 1.005-1.030 :41 LIPID PANEL (13203) Comments: PATIENT WAS FASTINGPERFORMED BY: [facility] [id number] LDL/HDL Ratio 2.2 {ratio_units} (Normal) Range: 0.0-3.6 [...] MANUAL DIFF Comments: PATIENT WAS FASTINGPERFORMED BY: [employer] [facility] [id number] Information: [id number] (21192) Immature Grans (Abs) 0.0 {x10E3/uL} (Normal) Range: [...] 4.10-5.60 WBC 4.9 {x10E3/uL} (Normal) Range: 4.0-10.5 50-Fxn-353559:51 PSA (PROSTATE SPECIFIC Comments: PATIENT WAS FASTINGPERFORMED BY: [facility]6[address] [facility] [id number] ANTIGEN) (V76.44) Prostate Specific Ag, 0.6 ng/mL (Normal) Range: 0.0-4.0 Serum Comments: Amee ECLIA methodology. .According to the [place] [employer], Serum PSA shoulddecrease and remain at undetectable levels after radicalprostatectomy. The AUA defines biochemical recurrence as an initialPSA value 0.2 ng/mL or greater followed by a subsequent confirmatoryPSA value 0.2 ng/mL or greater.Values obtained with d ifferent assay methods or kits cannot be usedinterchangeably. Results cannot be interpreted as absolute evidenceof the presence or absence of malignant disease. 99-Rws-343180:51 LIPID PANEL (26521) Comments: PATIENT WAS FASTINGPERFORMED BY: [facility] [facility] [id number] LDL Cholesterol Calc 95 mg/dL (Normal) Range: 0-99 LDL/HDL Ratio 1.8 {ratio_units} (Normal) Range: 0.0-3.6 HDL Cholesterol 52 mg/dL (Normal) Comments: According to ATP-III Guidelines, HDL-C >59 mg/dL is considered anegative risk factor for CHD. VLDL Cholesterol Rafi 16 mg/dL (Normal) Range: 5-40 Triglycerides 81 mg/dL (Normal) Range: 0-149 Cholesterol, Total 163 mg/dL (Normal) Range: 100-199 21-Rnh-676866:51 METABOLIC PANEL, Comments: PATIENT WAS FASTINGPERFORMED BY: [facility]Pres[facility] HospitalBgelqk4137 [facility] [id number] Information: [id number] COMPREHENSIVE (38217) ALT (SGPT) 19 [iU]/L (Normal) Range: 0-55 [...] changing to: Age Male Female <18 years 9 - 27 9 - 25 18 - 39 years 8 - 8 - 40 - 59 years 9 - 9 - 60 years and older 10 11 - 26 eGFR >59 mL/min/1.73 (Normal) [...] Report See Note (Normal) Comments: Exam Number: [id number] Procedure completed. Please see MEDICAL RECORDS reports [...] 4.6-6.2 WBC 4.3 K/mm3 (Abnormal) Range: 4.4-11.0 :44 ESR SED RATE 9 mm/h (Normal) Range: [...] (Normal) GLU 97 mg/dL (Normal) Range: 70-110 83-Euc-439369:35 LIPID HDL 37 mg/dL (Abnormal) Comments: Reference [...] CHOL 139 mg/dL (Normal) Comments: <200 mg/dL Nhejzklft000-904 mg/dL Borderline>240 mg/dL High Risk 21-Smi-791800:35 LIVER ALB 3.2 g/dL (Abnormal) Range: 3.4-5.0 ALK P 58 U/L (Normal) Range: 50-136 ALT 18 U/L (Normal) Range: 12-78 AST 15 U/L (Normal) Range: 15-37 D BILI 0.27 mg/dL (Normal) Range: 0.00-0.30 T BILI 1.10 mg/dL (Abnormal) Range: 0.00-1.00 T PROT 5.8 g/dL (Abnormal) Range: 6.4-8.2 80-Fkk-675705:35 MG 1.7 mg/dL (Normal) Range: 1.5-2.2 28-Rfc-540635:06 PSA (PROSTATE SPECIFIC Comments: PATIENT WAS FASTINGPERFORMED BY: [employer] [place] [id number] ANTIGEN) (V76.44) Prostate Specific Ag, 0.5 ng/mL (Normal) Range: 0.0-4.0 Serum Comments: TRIBAX ECLIA methodology. .According to the [place] [employer], Serum PSA shoulddecrease and remain [...] PANEL, COMPREHENSIVE Comments: PATIENT WAS FASTINGPERFORMED BY: [facility] [place] [id number] (23056) A/G Ratio 1.9 (Normal) Range: 1.1-2.5 Albumin, [...] Sodium, Serum 140 mmol/L (Normal) Range: 135-145 93-Fdr-375937:06 LIPID PANEL (67074) Comments: PATIENT WAS FASTINGPERFORMED BY: LabCoPSE&[facility] Specialized HospitalLsuvpw4617 [facility] [id number] Cholesterol, Total 208 mg/dL (Abnormal) Range: 100-199 HDL Cholesterol 50 mg/dL (Normal) Comments: According to ATP-III Guidelines, HDL-C >59 mg/dL is considered anegative risk factor for CHD. LDL Cholesterol Calc 139 mg/dL (Abnormal) Range: 0-99 LDL/HDL Ratio 2.8 {ratio_units} (Normal) Range: 0.0-3.6 Triglycerides 95 mg/dL (Normal) Range: 0-149 VLDL Cholesterol Rafi 19 mg/dL (Normal) Range: 5-40 42-Qeb-023522:06 CBC WITH MANUAL DIFF (22289) Comments: PATIENT WAS FASTINGClinical Information: [id number] PERFORMED BY: [facility]6[address] [facility] [id number] Baso (Absolute) 0.1 {x10E3/uL} (Normal) Range: 0.0-0.2 [...] {x10E3/uL} (Normal) Range: 4.0-10.5 :16 Rapid Flu (37813 x 2) INFLUENZA IMMUNOASSY DIRECT OPTICAL OBSERV negative (Normal) :16 Rapid Strep Test, Office (03955) Rapid Strep Test, Office Negative (Normal) :29 PSA (PROSTATE SPECIFIC Comments: PERFORMED BY: [email or web address] [facility] [id number] ANTIGEN) (V76.44) Prostate Specific Ag, Serum 0.5 ng/mL (Normal) Range: 0.0-4.0 Comments: EcatoIA methodology. .According to the [place] [employer], PSA should beundetectable after radical prostatectomy. A PSA of less than0.5 ng/mL (or undetectable) is not likely to be associated withdisease recurrence within five years of treatment.Values obtained with different assay methods or kits cannot be usedinterchang eably. Results cannot be interpreted as absolute evidenceof the presence or absence of malignant disease. :29 URINALYSIS W/O MICRO (36412) Comments: PERFORMED BY: [email or web address] [facility] [id number] Appearance Clear (Normal) Bilirubin Negative (Normal) Glucose Negative (Normal) Ketones Negative (Normal) Microscopic Examination MICRON (Normal) Comments: Microscopic follows if indicated. Nitrite, Urine Negative (Normal) Occult Blood Negative (Normal) pH 6.5 (Normal) Range: 5.0-7.5 Protein Negative (Normal) Specific Roosevelt 1.023 (Normal) Range: 1.005-1.030 Urine-Color Yellow (Normal) Urobilinogen,Semi-Qn 0.2 mg/dL (Normal) Range: 0.0-1.9 WBC Esterase Negative (Normal) :29 LIPID PANEL (39712) Comments: PERFORMED BY: [employer]6[address] [facility] [id number] Cholesterol, Total 225 mg/dL (Abnormal) Range: 100-199 [...] Cholesterol Rafi 24 mg/dL (Normal) Range: 5-40 02-Jrz-48017:29 METABOLIC PANEL, COMPREHENSIVE Comments: PERFORMED BY: [facility] Vmquen3306 [facility] [id number] (17293) A/G Ratio 1.7 (Normal) Range: 1.1-2.5 Albumin, [...] Serum 95 mg/dL (Normal) Range: 65-99 If -Greek >59 mL/min/1.73 Comments: Note: Persistent reduction for [...] Sodium, Serum 141 mmol/L (Normal) Range: 135-145 :29 CBC WITH MANUAL DIFF (26812) Comments: PERFORMED BY: KAILEY LabCoP[facility] Specialized HospitalWyokpp8510 [facility] [id number] Baso (Absolute) 0.0 {x10E3/uL} (Normal) Range: 0.0-0.2 [...] Plan of Care Name Dates Details Instructions Lower back pain : Reviewed Diagnostic Tests [...] Other chest pain Planned Observations LIPID PANEL (94039)Indication: Hypercholesterolemia On: 82-Ovi-052111:42 Request Comments: fasting in future Urinalysis, Office (53473)Indication: Preop examination On: 34-Sin-826777:26 Request PSA (PROSTATE SPECIFIC ANTIGEN) (V76.44)Indication: Encounter for routine history and physical exam for male On: :18 Request URINALYSIS, W/ MICRO (25353)Indication: Hypertension On: :18 Request METABOLIC PANEL, COMPREHENSIVE (50142)Indication: Hypertension On: 70-Ilv-36621:17 Request LIPID PANEL (23444)Indication: Hypertension On: :17 Request CBC with auto diff (39915)Indication: Hypertension On: :17 Request BILIRUBIN DIRECT (49113)Indication: Total bilirubin, elevated On: 16-Jul-20137:48 Request URINALYSIS, W/ MICRO (49746)Indication: Hypertension On: 15-Bvp-858867:24 Request Planned Procedures Flu Vaccine (Quadrivalent) On: 12-Jan-2018 Intent 49104Qr: Visit, Nurse Comments: Lot #[id number]/2019Site-L dltd, IMDose prefilled syringegiven by:Akosua Rucker LPNVIS reviewed and ABN signed Kenalog Injection, 10 mgm On: 09-May-2017 Intent (J3301)By: Darcie Daly CNP Comments: 30mg - [id number]-rt7/2018L hip, IMMLONG, MASTER PLANNER Darcie Daly CNP Toradol Injection, 30 mg On: 09-May-2017 Intent (J1885)By: Darcie Daly CNP, CNP, Mary E MRI LUMBAR SPINE W/O CONTRAST On: 28-Apr-2017 Intent (57165)By: Darcie Daly CNP, CNP, Mary E Toradol Injection, 30 mg On: 28-Apr-2017 Intent (J1885)By: Darcie Daly CNP, CNP, Mary E Radiology - Lumbar SpineBy: On: 25-Apr-2017 Intent Darcie Daly CNP, CNP, Mary E Toradol Injection, 30 mg On: 25-Apr-2017 Intent (J1885)By: Darcie Daly CNP Comments: 80-334-dk8/062776kl/mlL hip IMMLONG Darcie Daly CNP Flu Vaccine (Quadrivalent) On: 16-Dec-2016 Intent 80060Gn: Darcie Daly CNP Comments: Lot:[id number]:06/2017Dose:0.5mLRoute:IMSite:L DltdGiven By:Autumn signed Darcie Daly CNP ELECTROCARDIOGRAM, COMPLETE On: 22-May-2016 Intent (ECG) (53928)By: Addy BUCHANAN, Comments: sinus rthym ShilpaDarcie Horta CNP Flu Vaccine (Quadrivalent) On: 12-Jan-2016 Intent 28033Os: Darcie Daly CNP Comments: FLUlot: [id number]:07/24site:Lt deltoidroute:IMdose:.5mlDEMICK, MA. Darcie Daly CNP Flu Vaccine (Quadrivalent) On: 06-Jan-2015 Intent 97160Ho: Claudia Walsh MD Comments: Lot:[id number]:09/07/15Dose:0.5mLRoute:IMSite:L DltdGiven By:MARIJA signed TD VACCINE ADULT (25811)By: On: 21-Jul-2014 Intent Claudia Walsh MD TDAP VACCINE >7 IM (70660)By: On: 21-Jul-2014 Intent Claudia Walsh MD EKG (21029)By: Jillian ALVARADO, On: 21-Jul-2014 Intent Claudia South Comments: see scanned document of test done to see results reviewed today with patient IMMUNIZ ADMNIN, 1 VAC, On: 27-Dec-2013 Intent SNGL/COMBO (91011)By: Jillian Comments: lot:[id number]:09/06/2014dose:0.5mLRoute: IMlocation: L armgiven by: Claudia altman MD FLU VAC, SPLIT, >3 YEARS, On: 27-Dec-2013 Intent INTRAMUSC (79642)By: Marcia Anaya IMMUNIZ ADMNIN, 1 VAC, On: 16-Jul-2013 Intent SNGL/COMBO (42436)By: Claudia Walsh MD EKG (33658)By: Jillian ALVARADO, On: 27-Feb-2012 Intent Claudia South Comments: see scanned document of test done to see results reviewed today with patient EKG (30629)By: Ed, On: 27-Feb-2012 Intent VIVIANA EKG (05882)By: Jillian ALVARADO, On: 26-Feb-2011 Intent Claudia South EKG (17310)By: dE On: 06-Mar-2010 Intent VIVIANA IMMUNIZ ADMNIN, 1 VAC, On: 28-Feb-2009 Intent SNGL/COMBO (44951)By: Claudia Walsh MD PNEUM VAC ADLT/IMUMNOSPR, On: 28-Feb-2009 Intent SBC/INTRM (84275)By: Claudia Walsh MD EKG (41610)By: Ed On: 28-Feb-2009 Intent VIVIANA EKG (22358)By: Jillian ALVARADO, On: 08-Mar-2008 Intent Claudia South Toradol Injection, 30 mg On: 17-Apr-2007 Intent (J1885)By: Celestina NUGENT, Comments: Lot #: [id number] date: 01/15Amount given: 30 mg/1 mlRoute: IMSite given: Right hipGiven by: JESÚS Guerrier Radiology - ChestBy: Jillian On: 21-Feb-2006 Intent Claudia ALVARADO Nuclear Stress Test/Stress On: 21-Feb-2006 Intent SPECT/TreadmillBy: Claudia Walsh MD Planned Medications INJECTION, KETOROLAC TROMETHAMINE, PER 15 MG Ordered: 25-Apr-2017 Pending Ciesa CRULLER MAKER MACHINE, Shilpa Ciesa CRULLER MAKER MACHINE, Shilpa INJECTION, KETOROLAC TROMETHAMINE, PER 15 MG Ordered: 28-Apr-2017 Pending Ciesa CRULLER MAKER MACHINE, Shilpa Ciesa CRULLER MAKER MACHINE, Shilpa INJECTION, KETOROLAC TROMETHAMINE, PER 15 MG Ordered: 09-May-2017 Pending Ciesa CRULLER MAKER MACHINE, Shilpa Ciesa CRULLER MAKER MACHINE, Shilpa INJECTION, TRIAMCINOLONE ACETONIDE, NOT OTHERWISE SPECIFIED, 10 MG Ordered: 09-May-2017 Pending Ciesa CRULLER MAKER MACHINE, Shilpa Ciesa CRULLER MAKER MACHINE, Shilpa Instructions Name Dates Details Lower back pain : How to access [...] : DISCONTINUED - URINALYSIS, AUTOMATED W/ MICRO (72512) Indication: Hypertension Hypertension : DISCONTINUED - CBC WITH MANUAL DIFF (33437) Indication: Hypertension Numbness and tingling of leg [...] Hypertension : Patient Instructions Indication: Hypertension Encounters Nurse Visit On: 12-Jan-2018 15:19 Encounter Reason: [...] [facility] End: 17-Feb-2006 11:14 Payers [facility] Cortez; aurea guarantor
--- OUTSIDE RECORDS SUMMARY | 2018-03-17 21:28 | XMS RPT_ITS ---
:1955 Author Organization OHIP Care Team Providers Name Role Phone ELLIE JUSTICE Attending Unavailable ELLIE JUSTICE Referring Unavailable NEHA MCKENNA Attending Unavailable ELLIE JUSTICE Attending Unavailable LEO ACOSTA Attending Unavailable Samir Kim Attending Unavailable Darcie Daly Attending Unavailable Addy Darcie Primary Care Unavailable Darcie Daly Attending Unavailable Addy Darcie Primary Care Unavailable Darcie Daly Referring Unavailable Darcie Daly Attending Unavailable Darcie Daly Referring Unavailable Babatundea, Darcie Primary Care Unavailable Garrett Kimel Attending Unavailable Ciesa, Darcie Referring Unavailable Julio, Samir Attending Unavailable Medon, Samir Referring Unavailable Ciesa, Darcie Primary Care Unavailable Medon, Samir Attending Unavailable Cebul, Vargas Referring Unavailable Medon, Samir Attending Unavailable Medon, Samir Referring Unavailable Ciesa, Darcie Primary Care Unavailable DeHorta, Monico Consulting Unavailable Eyad GAUTAM, Sushma Attending Unavailable Ciesa, Darcie Referring Unavailable Fatim[facility], [place] [facility] Attending Unavailable Medon, Samir Referring Unavailable PROBLEMS PROBLEMS DATE TYPE CONDITION / CODE ATTENDING STATUS SOURCE 02/23/2018 Unknown K40.90 - MedonSamir hernandez Active [facility] Unilateral Community inguinal hernia, Hospital without Repository obstruction or gangrene, not specified as recurrent / K40.90(ICD-10) 02/11/2018 Unknown R00.1 - Fatimah, [place] [facility] Active [facility] Bradycardia, Community unspecified / Hospital R00.1(ICD-10) Repository 02/11/2018 Unknown I10 - Essential Fatimah, [place] Active [facility] (primary) Community hypertension / Hospital I10(ICD-10) Repository 01/12/2018 Unknown R10.9 - MedonSamir hernandez Active [facility] Unspecified Community abdominal pain / Hospital R10.9(ICD-10) Repository 01/12/2018 Unknown R10.32 - Left MedonSamir Active [facility] lower quadrant Community pain / Hospital R10.32(ICD-10) Repository 12/23/2017 Active Unknown / ELLIE JUSTICE Active [facility] UNK(Unknown) [facility] [place] Repository 09/16/2017 Unknown M54.30 - Sciatica, Ciesa, Darcie Active [facility] unspecified side / Community M54.30(ICD-10) Hospital Repository 05/03/2017 Unknown M54.32 - Sciatica, Ciesa, Darcie Active [facility] left side / Community M54.32(ICD-10) Hospital Repository PROCEDURES PROCEDURES No Procedure Records FoundRESULTS RESULTS SURGERY VISIT REPORT Observed: 02/12/2018 Status: F Source: [place] 10:26 AM [facility] HOSPITAL REPOSITORY [facility] [address] [place] [address]. [address] [place] [address] OFFICE VISIT Date of Service: 02/11/18 MR#: [id number] Acct: [id number] Name: SANDOR CORTEZ Rep #: [id number] : 1955 Provider: Sushma Castano PA-C Age/Sex: 62/M Location: [facility] Status: Signed Intake Intake Visit Reasons: Hernia Surgery 02/03 DP Chief Complaint: discuss CT Motel Maid Required: No Is patient in pain?: No Allergies No Known Allergies Allergy (Verified 02/11/18 12:54) Medications aspirin 81 mg chewable tablet 81 mg PO DAILY 12/29/17 [History Confirmed 02/11/18] famotidine 20 mg tablet 20 mg PO DAILY 12/29/17 [History Confirmed 02/11/18] glucosamine JPy-A0-Yatmynolw lizzy 1,500 mg-400 unit-100 mg tablet 1 tab PO DAILY 12/29/17 [History Confirmed 02/11/18] lisinopril 10 mg tablet 10 mg PO DAILY 12/29/17 [History Confirmed 02/11/18] omega-3 fatty acids 1,000 mg capsule 1,000 mg PO DAILY 12/29/17 [History Confirmed 02/11/18] Subjective Details: Patient is a 62 y/o male I am following for left inguinal hernia. Dr. Kim performed a laparoscopic left inguinal hernia repair on 02/03/18. Patient tolerated the procedure well. Patient notes very little to no pain/discomfort. He notes the worst of the pain was his throat after the procedure. He denies nausea, vomiting, fever. He notes appetite has returned to normal. He notes bowel habits have returned to normal. Objective Details: Abdomen- soft, nontender. Incisions c/d/i. No erythema or infection noted. Assessment AND Plan Problems 1. Reducible left inguinal hernia K40.90 2. Hx of hernia repair Z98.890; Z87.19 02/03/18 Plan - Recommend no lifting greater than 20 pounds for 6 weeks - Follow-up as needed Coding Level of Care Code Global Post Op Diagnoses Reducible left inguinal hernia K40.90 Hx of hernia repair Z98.890; Z87.19 02/12/18 1026 <Electronically signed by Sushma Castano PA-C> Date Sushma Eyad GAUTAM Cosigner Signature: Date (if applicable) CC: Darcie Addy MARK OPERATIVE REPORT Observed: 02/11/2018 Status: F Source: [place] 11:21 AM [facility] REPOSITORY [facility] Medical Records Department [address] [place] [address] Operative Report 02/03/18 1054 MR#: [id number] Acct: [id number] Name: SANDOR CORTEZ Rep #: [id number] : 1955 62 From: Samir Kim MD PCP: Darcie Daly NP Status: DEP [facility] Y Location: [facility] Problem List (1) Reducible left inguinal hernia Status: Acute Report of Operation Date of Procedure: 02/03/18 Pre-Operative Diagnosis: Reducible left inguinal hernia Post-Operative Diagnosis: Same Surgery/Procedure Performed:: Laparoscopic left inguinal herniorrhaphy Type of Anesthesia:: General Anesthesiologist: Doug Ingram Estimated Blood Loss (mL): < 25 cc Description of Procedure: Patient was brought into the operating room. Placed in the supine position. Under excellent general trach intubation the abdomen was sterilely prepped draped in usual fashion. Local was injected supra umbilically. Dissection was carried down to fascia. Fascia was grasped with [place]. Varies needle was placed inside the abdomen. The abdomen was insufflated to 15 torr. A 10/12 trocar was placed without difficulty. It was flank by 2 #5 trochars both placed under direct visualization without injury to underlying structures. Patient was placed [...] fashioned a large 3 DMax mesh into the wound. I tacked to the Sage's ligament with a pro-tacker. I tacked it superiorly and laterally with sparing tax. I reperitonealized area covering the mesh completely. I inspected the right side no hernia was identified. Ilioinguinal nerve block was performed. Trochars were removed under direct visualization. Fascia the umbilical port was closed with a [id number]-pt-ttegy stitch of 0 Vicryl. Skin incisions were closed with subcuticular stitches of 4- 0 Monocryl. Steri-Strips are applied. Sterile dressings were applied. Patient tolerated the procedure well. - Admit VTE Documentation VTE Present on Admission: No VTE Mechan Device Prophylaxis: SCD's VTE Pharm Prophylaxis ordered?: No Reason prophylaxis not ordered:: Treatment Not Indicated 02/11/18 1121 <Electronically signed by Samir Kim MD> Date Samir Kim MD CC: Darcie Daly RETORT LOADER; Samir Kim MD; Monico Medel MD Signed 12 LEAD ELECTROCARDIOGRAM Observed: 02/06/2018 Status: F Source: [place] 9:17 AM [facility] REPOSITORY [facility] Cardiovascular Services [address] [place] [id number] 12 Lead EKG 01/28/18 1046 MR#: [id number] Acct: [id number] Name: SANDOR CORTEZ Rep #: [id number] : 1955 62 From: Philip Sheridan MD Attending Dr: Samir Kim MD Status: [facility] Ordering Dr: Samir Kim MD Date: 01/28/18 Location: [facility] Sex: M C Admitted: Test Reason : PRE-OP Blood Pressure : / mmHG Vent. Rate : 055 BPM Atrial Rate : 055 BPM P-R Int : 138 ms QRS Dur : 102 ms QT Int : 412 ms P-R-T Axes : 016 029 021 degrees QTc Int : 394 ms Sinus bradycardia Otherwise normal ECG Confirmed by PHILIP SHERIDAN MD ([id number]), editor managing newspaper LORENA ABEL ([id number]) on 01/30/2018 1:43:26 PM Referred By: Samir Kim Confirmed By:PHILIP SHERIDAN MD 01/30/18 1343 Date Philip Sheridan MD CC: Darcie Daly NP; Samir Kim MD Signed DISCHARGE INSTRUCTION Observed: 02/03/2018 Status: F Source: [place] 10:55 AM [facility] REPOSITORY [facility] Medical Records Department [address] [place] [address] Instructions for Home/Discharge Instructions 02/03/18 1055 MR#: [id number] Acct: [id number] Name: SANDOR CORTEZ Rep #: [id number] : 1955 62 From: Samir Kim MD PCP: Darcie Daly NP Status: REG SDC Discharge Diet: Light diet - advance as tolerated Discharge Activity: Return to Normal Activity, May Drive - when you are no longer taking narcotic pain medications., May Shower - with the bandage in place 1-2 days after surgery. Lifting Restrictions: 20 pounds for 8 weeks. Additional Activity Instructions:: Climbing stairs is fine, walking is encouraged. Sitting in bed may be uncomfortable. Sitting up using your lateral muscles (sitting up sideways) is usually more comfortable. Do not drive, work heavy equipment of sign legal documents for 24 hours. If your hernia repair was an ingunial repair, you may have scrotal swelling, an ice pack and/or athletic support can provide more comfort. Pain medications may cause nausea, you should typically eat light foods as you take your pain medications. Pain medications may also cause constipation. If you have difficulty with this, discuss with your doctor. Call your doctor if your incision/area has: Continuous Slow Oozing, Sudden Increased Bleeding, Increased Pain/ Swelling, Increased Redness, Foul Smelling Discharge Call your doctor if you observe: Fever of 101 or Higher Suture Line Care: Avoid Pulling/Pushing, Avoid Pinching/Bending Additional Dressing/Incision Instructions:: Leave the operative bandage on for 2-3 days. When you remove the bandage, leave the steri-strips on place until your follow up appointment or they fall off. Allergies/Adverse Reactions: Allergies No Known Allergies Allergy (Verified 01/28/18 08:07) Medications to take at Discharge aspirin 81 mg chewable tablet 81 mg PO DAILY 12/29/17 famotidine 20 mg tablet 20 mg PO DAILY 12/29/17 glucosamine NBz-N5-Xlayfelbk lizzy 1,500 mg-400 unit-100 mg tablet 1 tab PO DAILY 12/29/17 lisinopril 10 mg tablet 10 mg PO DAILY 12/29/17 omega-3 fatty acids 1,000 mg capsule 1,000 mg PO DAILY 12/29/17 Oxycodone HCl/Acetaminophen [Percocet 5/325] 1 - 2 tab PO Q4H PRN PRN 5 Days #30 tab 02/03/18 The following prescriptions were given: Oxycodone HCl/Acetaminophen [Percocet 5/325] 1 - 2 tab PO Q4H PRN PRN 5 Days #30 tab PRN Reason: Pain Orders to be completed after discharge: 12 Lead EKG [[facility]] Time Frame: 01/28/18, Location: None Selected Primary Care Physician: Darcie Daly RETORT LOADER-C [Primary Care Provider] - Test Results: Test results from this visit will be discussed in further detail at your follow-up appointment, if applicable. Please Follow Up With: Samir Kim MD - [phone] When: Plan to have a follow up appointment in 7 days. Call to schedule. 02/03/18 2719 <Electronically signed by Samir Kim MD> Date Samir Kim MD CC: Darcie Daly RETORT LOADER; Monico Medel MD SURGERY VISIT REPORT Observed: 01/15/2018 Status: F Source: [place] 2:54 PM [facility] REPOSITORY [facility] [address] [place] [address]. [address] [place] [address] OFFICE VISIT Date of Service: 01/12/18 MR#: [id number] Acct: [id number] Name: SANDOR CORTEZ Rep #: [id number] : 1955 Provider: Samir Kim MD Age/Sex: 62/M Location: [facility] Status: Signed Intake Intake Visit Reasons: F/U CT Results Chief Complaint: discuss CT Motel Maid Required: No Is patient in pain?: No Allergies No Known Allergies Allergy (Verified 01/12/18 13:02) Medications aspirin 81 mg chewable tablet 81 mg PO DAILY 12/29/17 [History Confirmed 12/29/17] famotidine 20 mg tablet 20 mg PO DAILY 12/29/17 [History Confirmed 12/29/17] glucosamine ZSt-G2-Pgalpxjbs lizzy 1,500 mg-400 unit-100 mg tablet 1 tab PO DAILY 12/29/17 [History Confirmed 12/29/17] lisinopril 10 mg tablet 10 mg PO DAILY 12/29/17 [History Confirmed 12/29/17] omega-3 fatty acids 1,000 mg capsule 1,000 mg PO DAILY 12/29/17 [History Confirmed 12/29/17] Subjective Details: HPI: SANDOR CORTEZ, is a 62 M who presents to the office today for for evaluation and left [...] of diverticulitis that he can recall. He states that when he eats fruit with small seeds he has rectal bleeding. He has a regular staple of popcorn and not every night. He has not been having any rectal bleeding. He is back today after undergoing a CAT scan of the abdomen and pelvis on 01/06/2018. This showed a small umbilical hernia a few nonreactive lymph nodes in his groin area. Some sigmoid diverticulosis as well as bilateral renal cyst which he has known about. He is still complaining of pain and a bulge popping in and out in his left groin area Objective Details: Lungs: Clear to auscultation Cardiac: Regular rate and rhythm Abdomen: Soft nontender nondistended inguinal exam on left side shows an obvious inguinal hernia. Right side I cannot palpate an obvious hernia there. Assessment AND Plan Problems 1. Reducible left inguinal hernia K40.90 Plan My plan is to perform a laparoscopic left inguinal hernia repair. The planned surgical procedure was discussed extensively with the patient. The risks, benefits, anticipated outcomes and possible complication were mentioned. The patient understands that all hernia repair surgery has a chance of recurrence and/or chronic post-operative pain. My staff has also explained the procedure in understandable terms and the patient was given the option to take printed material concerning the planned procedure. The patient had the opportunity to ask questions concerning the planned procedure. The patient freely consents to the planned procedure. 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 The patient feels as though the vision has declined and he is concerned that the macular hole is reopening. On OCT he shows stable atrophy without a macular hole. Long discussion with the patient that I do not believe the hole is reopening, and I do not believe he would benefit from additional surgery at this time. The left eye is showing progressive Vitreomacular traction with a possible stage 1 macular hole. I discussed with the patient the treatment options including observation versus injection of Jetrea versus pneumatic vitrealysis versus surgical intervention. Risks, benefits, alternatives explained and I would recommend observation alone a this time. A cataract is present in the left eye for which I recommend observation at this time. Intraocular lens right eye with a posterior capsular opacity that is encroaching on the center. Advise observation at this time. For progression the patient may benefit from a YAG laser. Return to clinic in 2 months + as needed. The documentation recorded by the scribe accurately reflects the service I personally performed and the decisions made by me. I have confirmed and edited as necessary the relevant ophthalmic history, ROS, and the neuro exam findings as obtained by others. I have seen and examined Sandor Cortez. I have discussed the case and the management of this patient's care with the Pmp Certified Project Manager, if applicable. I also have reviewed and agree with the assessment and plan as stated above and agree with all of its relevant components. Leo Acosta MD January 13, 2018 10:07 AM CREATININE FINGERSTICK Collected: 01/06/2018 Status: F Source: [place] 8:06 AM [facility] REPOSITORY TYPE CODE TESTS RESULT OUT OF RANGE REFERENCE UNITS LAB L9100.0210 0.70-1.30 mg/dL Normal CREATININE WB 1.2 LAB L9100.0220 >60 mL/min EGFR WB Normal > 60.0000 Performed By: #### L9100.0200 #### [facility] Point of Care [address] [place] [address] ABDOMEN/PELVIS WITH Observed: 01/06/2018 Status: F Source: [place] CONTRAST 7:59 AM [facility] REPOSITORY [facility] Imaging Services [address] [place] [address] Abdomen/Pelvis WITH Contrast MR#: [id number] Acct: [id number] Name: SANDOR CORTEZ Rep #: [id number] : 1955 M 62 From: Sreedhar Correa MD PCP: Darcie Daly NP Status: REG CLI Study: Abdomen/Pelvis WITH Contrast Date of Exam: 01/06/18 Exam# [id number] Ordering Dr: Sushma Castano PA-C STUDY: CT ABDOMEN AND PELVIS WITH CONTRAST [...] ml of Isovue 300 contrast was administered. Sagittal and coronal images were reconstructed. Individualized dose optimization techniques were used for this CT. COMPARISON: None. FINDINGS: Minimal increased markings at the lung bases suggestive of a linear atelectasis and/or scarring. The visualized portions of the heart are within normal limits. There is decreased attenuation of the liver consistent with steatosis. There is a 6 mm isodense nodule [...] a 2 cm cyst in the anterior superior aspect of the left kidney. There is a small hiatal hernia. Normal small intestine. There are multiple colonic diverticula consistent with diverticulosis. The patient has a history of prior appendectomy. There is scattered atherosclerotic calcification of the abdominal aorta, without a demonstrated aneurysm. Normal inferior vena cava. Normal retroperitoneum. Normal urinary bladder. There is a small umbilical hernia containing fat. Small benign-appearing bilateral inguinal lymph nodes. Grade 1 anterior listhesis of L5 on S1 with spondylolysis of the pars interarticularis of the L5 vertebrae. CT/Abdomen/Pelvis WITH Contrast IMPRESSION: Fatty infiltration of the liver. Bilateral renal cysts. Sigmoid diverticulosis. Electronically Signed: Sreedhar Correa MD at 13:52 EDT Tel [phone], Service support , CC: Darcie Daly RETORT LOADER; Sushma Castano PA-C Contracting Support Specialist: Signed SURGERY VISIT REPORT Observed: 12/29/2017 Status: F Source: [place] 2:40 PM [facility] REPOSITORY [facility] [address] [place] [address] OFFICE VISIT Date of Service: 12/29/17 MR#: [id number] Acct: [id number] Name: SANDOR CORTEZ Rep #: [id number] : 1955 Provider: Samir Kim MD Age/Sex: 62/M Location: [facility] Status: Signed Intake Vital Signs12/29/17 Height 5 ft 11.5 in 12/29/17 Weight: 210 lb 5 oz 12/29/17 Body Mass Index (BMI) 28.9 12/29/17 Blood Pressure 138/89 H Intake Visit Reasons: Hernia Chief Complaint: left inguinal pain/ lump Motel Maid Required: No Is patient in pain?: Yes Pain scale (1-10): 5 Allergies No Known Allergies Allergy (Verified 12/29/17 14:25) Medications aspirin 81 mg chewable tablet 81 mg PO DAILY 12/29/17 [History Confirmed 12/29/17] famotidine 20 mg tablet 20 mg PO DAILY 12/29/17 [History Confirmed 12/29/17] glucosamine KPi-M9-Cfcbseeyk lizzy 1,500 mg-400 unit-100 mg tablet 1 tab PO DAILY 12/29/17 [History Confirmed 12/29/17] lisinopril 10 mg tablet 10 mg PO DAILY 12/29/17 [History Confirmed 12/29/17] omega-3 fatty acids 1,000 mg capsule 1,000 mg PO DAILY 12/29/17 [History Confirmed 12/29/17] PFSH Medical History Back pain (Acute) GERD (gastroesophageal reflux disease) (Acute) HTN (hypertension) (Chronic) Surgical History History of appendectomy (Acute) History of cholecystectomy (Acute) History of colonoscopy (Acute) History of repair of right rotator cuff (Acute) Family History Sister Diabetes Heart disease Hypertension Brother Heart disease Hypertension Cancer prostate Brother Cancer prostate Social History Smoking Status: Never smoker HPI HPI HPI: SANDOR CORTEZ, is a 62 M who presents to the office today for for evaluation and left [...] of diverticulitis that he can recall. He states that when he eats fruit with small seeds he has rectal bleeding. He has a regular staple of popcorn and not every night. He has not been having any rectal bleeding. ROS General General: No weight change, appetite, fatigue, colon cancer, breast cancer or weakness HEENT HEENT: Yes eye injury; no difficulty swallowing, eye surgery, swollen glands or hoarseness Endo Endocrine: No thyroid disease, diabetes mellitus, thyroid cancer, Hair loss, heat intolerance [...] No constipation, No blood in stool, Yes acid reflux, No hemorrhoids, No ulcers, No gallbladder problem, No black,tarry stools Rick Hematologic: No blood thinners, No blood disorders, No bleeding, No anemia, No blood clots Neuro Neurologic: No weakness Exam Const General: well developed, no acute distress, well hydrated Orientation: oriented to person, oriented to place, oriented to time [facility] Head: normocephalic, atraumatic Ears: external ears normal Mouth: moist mucous membranes Eyes Sclera: sclerae normal Pupils: normal by confrontation Neck Neck: no lymphadenopathy noted Neck mass: No Thyroid: symmetrical, thyroid normal Chest Chest palpation AND inspection: normal inspection of the chest Resp Effort AND Inspection: normal respiratory effort Auscultation: clear to auscultation bilaterally Percussion: percussion normal Cardio Rate: regular rate Rhythm: regular rhythm Heart Sounds: no murmurs GI Palpation: soft, tender in the LLQ, no masses, no hepatosplenomegaly Rectal Exam: other Other: A Hernia the left side is palpate on exam. Rectal exam deferred. When I have him lie [...] pain of unknown etiology R10.32 2. Left inguinal hernia K40.90 Plan I think we need to get a CAT scan of the abdomen and pelvis to make sure that this is not diverticulitis. His hernia is present but it is not big in his pain while lying down this does not strike me as being hernia related but more intra-abdominal related. Prior to him going to surgery I think it is important that we have the CAT scan to make sure we are not missing a diagnosis of diverticulitis. Orders Orders: Coding Level of Care Code Off vis,new,level 3 Diagnoses Left lower quadrant abdominal pain of unknown etiology R10.32 Left inguinal hernia K40.90 12/29/17 1440 <Electronically signed by Samir Kim MD> Date Samir Kim MD Cosigner Signature: Date (if applicable) CC: Darcie Daly NP PROGRESS Observed: 12/23/2017 Status: COMPLETED Source: [place] 8:17 AM [facility] REPOSITORY O ID: [id number] Author: Ellie Justice Service: (none) Author Type: Physician Type: Progress Notes Filed: 12/23/2017 8:51 AM Note Text: Reports lines run together when trying to read text while watching TV Also having difficulty while hunting S/p Phaco/IOL/PPV/ILMP/Gas right eye for macular hole 06/12/2016 - OCT with persistent EZ disruption likely limiting best corrected visual acuity and non foveal Epiretinal membrane is present - observe Mild VMT with focal area of EZ disruption, left eye -has mildly worsened since prior OCT. No anne macular hole at this time -recommend close observation PCIOL right eye - doing well Cataract left eye - doing well I have confirmed and edited as necessary the relevant ophthalmic history, ROS, and the neuro exam findings as obtained by others. I have seen and examined this patient. I have discussed the case and the management of this patient's care with the Resident/Fellow, if applicable. I also have reviewed and agree with the assessment and plan as stated above and agree with all of its relevant components. PROGRESS Observed: 07/03/2017 Status: COMPLETED Source: [place] 8:41 AM [facility] REPOSITORY HNO ID: [id number] Author: Neha Mckenna Service: (none) Author Type: Physician Type: Progress Notes Filed: 07/03/2017 10:29 AM Note Text: SPINE SURGERY NEW PATIENT PCP: Darcie Daly CNP REFERRING PROVIDER: Dr. Daly SUBJECTIVE HISTORY OF PRESENT ILLNESS: Sandor Cortez is a 61 year old male presenting with spouse. CHIEF COMPLAINT: low back pain PRECIPITATING EVENT: None DURATION OF SYMPTOMS: Greater Than 3 Months Sandor Cortez is a 61 year old presenting with low back pain > left thigh pain that started 4-5 months ago. He reports he bent over to recycle paper and felt a tear in lower back with pain/numbness traveling down lateral aspect of left thigh. No weakness nor bowel/bladder changes. He had trigger point injections and analgesics by his PCP. He also performed aquatx for 5 weeks and reports that this helped. He underwent an ADAMA last month and reports that his pain has dramatically improved. He now only has low back pain when he exerts himself with bending or lifting and rates it at a 1-2/10 at its worst. PAIN EVALUATION 07/03/2017 Pain Score: 3 Pain Location: Back-Lower Description: Aching Duration Amount of Time: 3 Duration Units: Months Frequency: Intermittent Pain Radiation: Pain does not radiate Aggravating Factors: lifting, bending forward Alleviating Factors: Cold application Pain Ratio: Pain in the back is greater than in the leg DERMATOMAL DISTRIBUTION: Left: L3 AMBULATORY STATUS: Independent Community Distances PREVIOUS CONSERVATIVE TREATMENTS: OTC NSAIDS for 3 Months or Greater (Ibuprofen) Muscle Relaxants Analgesics Physical Therapy: Date(s) 6 weeks aquatherapy in 2018 Trigger Point Injections PREVIOUS SPINAL SURGERY: None ACTIVE PROBLEM LIST Abdominal Pain, Unspecified Site Acquired Cyst of Kidney Nonspecific (Abnormal) Findings On Radiological and Other Examination of Gastrointestinal Tract Macular Hole Nuclear Cataract Pseudophakia, Right Eye Nuclear Sclerosis, Left PAST MEDICAL HISTORY Diagnosis Date - Cataract left eye - Drusen od - ERM OD (epiretinal membrane, right eye) - Essential hypertension, benign - Macular hole od - Nonspecific (abnormal) findings on radiological and other examination of gastrointestinal tract - Pseudophakia of right eye 06/11/2016 PAST SURGICAL HISTORY Procedure Laterality Date - APPENDECTOMY - COLONOSCOP W/ OR W/O [facility] SPEC 09/16/05 - REMOVAL GALLBLADDER - REMV CATARACT EXTRACAP,INSERT LENS Right 05/07/2016 Cataract Extraction with PC IOL - REMV CATARACT EXTRACAP,INSERT LENS Right 06/11/2016 Cataract Extraction with PC IOL - VITRECTOMY,MECHANICAL Right 05/07/2016 PPV (Pars Plana Vitrectomy) - VITRECTOMY,MECHANICAL Right 06/11/2016 PPV (Pars Plana Vitrectomy) FAMILY HISTORY Problem Relation Age of Onset - Hypertension Mother - Glaucoma Mother - Hypertension Father - Heart Father - Stroke Brother - Glaucoma Other maternal aunts Social History Marital status: Spouse name: Years of education: Number of children: Social History Main Topics Smoking status: Never Smoker Smokeless status: Never Used Alcohol use: Yes Comment: social Drug use: No ALLERGIES No Known Allergies MEDICATIONS: lisinopril (ZESTRIL, PRINIVIL) 10 mg tablet Take 1 tablet by mouth once daily. DOCOSAHEXANOIC ACID/EPA (FISH OIL ORAL) Take 1 tablet by mouth once daily. [address] SAPNA ASPIRIN ORAL Take 1 tablet by mouth once daily. famotidine (PEPCID) 20 mg tablet Take 20 mg by mouth once daily. GLUCOSAMINE HCL/CHONDR SEALS A NA (OSTEO BI-FLEX ORAL) Take 1 tablet by mouth once daily. With vitamin d ACETAMINOPHEN (TYLENOL ORAL) Take 1 tablet by mouth once daily. REVIEW OF SYSTEMS: GENERAL: No weight loss or malaise MUSCULOSKELETAL: Negative for joint pain, swelling or muscle pain NEURO: No history of headaches, syncope, paralysis, seizures or tremors OBJECTIVE: PHYSICAL EXAM BP 126/73 Pulse (!) 54 Ht 182.1 cm (5' 11.7) Wt 96.9 kg (213 lb 11.2 oz) BMI 29.23 kg/m2 GENERAL APPEARANCE: Well nourished, well developed, and no apparent distress. NEURO PSYCH: Patient oriented to person, place, and time. Mood pleasant. Benign affect. MUSCULOSKELETAL VISUAL INSPECTION CERVICAL: WNL THORACIC: WNL LUMBAR: WNL MOTOR: 5/5 in all muscle groups. SENSORY: Normal sensory exam GAIT: Normal. NEURO TESTS: None DATA REVIEW Imaging and outside records reviewed Images reviewed with the patient Lumbar MRI, 05/03/17: left paracentral disc herniation at L2- L3 with moderate lateral recess stenosis; very mild L5-S1 spondylolisthesis ASSESSMENT/PLAN IMPRESSION: (M51.16) Lumbar disc herniation with radiculopathy (primary encounter diagnosis) Low back pain greater than left thigh pain with left paracentral L2-L3 disc herniation; improving to nearly asymptomatic with maximal non-operative management. No indication for operative management as clinically improved almost to baseline. - continue PT - follow up in clinic as needed Robel Mcgregor MD, Fellow SIGNATURE: Neha Mckenna MD PATIENT NAME: Sandor Cortez DATE: July 03, 2017 TIME: 8:41 AM PAGER: OPAL Observed: 07/03/2017 Status: COMPLETED Source: [place] 8:20 AM [facility] REPOSITORY Office Visit (SPNSST) SANDOR CORTEZ ([id number]) 1955 M Date Time Provider Department 07/03/17 8:20 AM NEHA MCKENNA SPNSST During your visit today, we recorded the following information about you: Pulse Blood pressure Weight Height 54/minute 126/73 96.9 kg 1.821 m Neha Mckenna MD 07/03/2017 10:29 AM Signed SPINE SURGERY NEW PATIENT PCP: Darcie Daly [employer]EE [employer]ARM[employer] REFERRING PROVIDER: Dr. Daly SUBJECTIVE HISTORY OF PRESENT ILLNESS: Sandor Cortez is a 61 year old male presenting with spouse. CHIEF COMPLAINT: low back pain PRECIPITATING EVENT: None DURATION OF SYMPTOMS: Greater Than 3 Months Sandor Cortez is a 61 year old presenting with low back pain ANDgt; left thigh pain that started 4-5 months ago. He reports he bent over to recycle paper and felt a ANDquot;tearANDquot; in lower back with pain/numbness traveling down lateral aspect of left thigh. No weakness nor bowel/bladder changes. He had trigger point injections and analgesics by his PCP. He also performed aquatx for 5 weeks and reports that this helped. He underwent an ADAMA last month and reports that his pain has dramatically improved. He now only has low back pain when he exerts himself with bending or lifting and rates it at a 1- 2/10 at its worst. PAIN EVALUATION 07/03/2017 Pain Score: 3 Pain Location: Back-Lower Description: Aching Duration Amount of Time: 3 Duration Units: Months Frequency: Intermittent Pain Radiation: Pain does not radiate Aggravating Factors: lifting, bending forward Alleviating Factors: Cold application Pain Ratio: Pain in the back is greater than in the leg DERMATOMAL DISTRIBUTION: Left: L3 AMBULATORY STATUS: Independent Community Distances PREVIOUS CONSERVATIVE TREATMENTS: OTC NSAIDS for 3 Months or Greater (Ibuprofen) Muscle Relaxants Analgesics Physical Therapy: Date(s) 6 weeks aquatherapy in 2018 Trigger Point Injections PREVIOUS SPINAL SURGERY: None ACTIVE PROBLEM LIST Abdominal Pain, Unspecified Site Acquired Cyst of Kidney Nonspecific (Abnormal) Findings On Radiological and Other Examination of Gastrointestinal Tract Macular Hole Nuclear Cataract Pseudophakia, Right Eye Nuclear Sclerosis, Left PAST MEDICAL HISTORY Diagnosis Date - Cataract left eye - Drusen od - ERM OD (epiretinal membrane, right eye) - Essential hypertension, benign - Macular hole od - Nonspecific (abnormal) findings on radiological and other examination of gastrointestinal tract - Pseudophakia of right eye 06/11/2016 PAST SURGICAL HISTORY Procedure Laterality Date - APPENDECTOMY - COLONOSCOP W/ OR W/O [facility] SPEC 09/16/05 - REMOVAL GALLBLADDER - REMV CATARACT EXTRACAP,INSERT LENS Right 05/07/2016 Cataract Extraction with PC IOL - REMV CATARACT EXTRACAP,INSERT LENS Right 06/11/2016 Cataract Extraction with PC IOL - VITRECTOMY,MECHANICAL Right 05/07/2016 PPV (Pars Plana Vitrectomy) - VITRECTOMY,MECHANICAL Right 06/11/2016 PPV (Pars Plana Vitrectomy) FAMILY HISTORY Problem Relation Age of Onset - Hypertension Mother - Glaucoma Mother - Hypertension Father - Heart Father - Stroke Brother - Glaucoma Other maternal aunts Social History Marital status: Spouse name: Years of education: Number of children: Social History Main Topics Smoking status: Never Smoker Smokeless status: Never Used Alcohol use: Yes Comment: social Drug use: No ALLERGIES No Known Allergies MEDICATIONS: lisinopril (ZESTRIL, PRINIVIL) 10 mg tablet Take 1 tablet by mouth once daily. DOCOSAHEXANOIC ACID/EPA (FISH OIL ORAL) Take 1 tablet by mouth once daily. [address] SAPNA ASPIRIN ORAL Take 1 tablet by mouth once daily. famotidine (PEPCID) 20 mg tablet Take 20 mg by mouth once daily. GLUCOSAMINE HCL/CHONDR SEALS A NA (OSTEO BI-FLEX ORAL) Take 1 tablet by mouth once daily. With vitamin d ACETAMINOPHEN (TYLENOL ORAL) Take 1 tablet by mouth once daily. REVIEW OF SYSTEMS: GENERAL: No weight loss or malaise MUSCULOSKELETAL: Negative for joint pain, swelling or muscle pain NEURO: No history of headaches, syncope, paralysis, seizures or tremors OBJECTIVE: PHYSICAL EXAM BP 126/73 Pulse (!) 54 Ht 182.1 cm (5' 11.7ANDquot;) Wt 96.9 kg (213 lb 11.2 oz) BMI 29.23 kg/m2 GENERAL APPEARANCE: Well nourished, well developed, and no apparent distress. NEURO PSYCH: Patient oriented to person, place, and time. Mood pleasant. Benign affect. MUSCULOSKELETAL VISUAL INSPECTION CERVICAL: WNL THORACIC: WNL LUMBAR: WNL MOTOR: 5/5 in all muscle groups. SENSORY: Normal sensory exam GAIT: Normal. NEURO TESTS: None DATA REVIEW Imaging and outside records reviewed Images reviewed with the patient Lumbar MRI, 05/03/17: left paracentral disc herniation at L2- L3 with moderate lateral recess stenosis; very mild L5-S1 spondylolisthesis ASSESSMENT/PLAN IMPRESSION: (M51.16) Lumbar disc herniation with radiculopathy (primary encounter diagnosis) Low back pain greater than left thigh pain with left paracentral L2-L3 disc herniation; improving to nearly asymptomatic with maximal non-operative management. No indication for operative management as clinically improved almost to baseline. - continue PT - follow up in clinic as needed Robel Mcgregor MD, Fellow SIGNATURE: Neha Mckenna MD PATIENT NAME: Sandor Cortez DATE: July 03, 2017 TIME: 8:41 AM PAGER: Referring Provider: SELF [[id number]] Allergies As of Date: 07/03/2017 (No Known Allergies) Date Reviewed: 07/03/2017 Reviewed by: Matheus Mcgill Ma - Fully Assessed Reason for Visit: Right Sided HNP [Other] Primary Visit Diagnosis:Lumbar disc herniation with radiculopathy [M51.16] Prescriptions as of 07/03/2017 Sig: LISINOPRIL 10 MG TABLET Take 1 tablet by mouth once d* FISH OIL ORAL Take 1 tablet by mouth once d* . SAPNA ASPIRIN ORAL Take 1 tablet by mouth once d* FAMOTIDINE 20 MG TABLET Take 20 mg by mouth once anjelica* OSTEO BI-FLEX ORAL Take 1 tablet by mouth once d* TYLENOL ORAL Take 1 tablet by mouth once d* Medication notes this encounter [facility] ASPIRIN ORAL >> Matheus Mcgill Ma 07/03/2017 8:36 AM >> MATHEUS MCGILL MA [place] Jul 03, 2017 8:36 AM Taking Problem List As Of Date 07/03/2017 Noted Resolved ABDOMINAL PAIN UNSPEC SITE [R10.9] INVALID FOR* CYST OF KIDNEY, ACQUIRED [N28.1] INVALID FOR* More... ABNORMAL FINDINGS-GI TRACT [R93.3] Macular hole [H35.349] INVALID FOR* Nuclear cataract [H25.10] INVALID FOR* Pseudophakia, right eye [Z96.1] INVALID FOR* Nuclear sclerosis, left [H25.12] INVALID FOR* Encounter Status:Closed by NEHA MCKENNA MD on 07/03/17 PROGRESS Observed: 06/03/2017 Status: COMPLETED Source: [place] 10:13 AM [facility] REPOSITORY HNO ID: [id number] Author: Ellie Justice Service: (none) Author Type: Physician Type: Progress Notes Filed: 06/03/2017 10:47 AM Note Text: S/p Phaco/IOL/PPV/ILMP/Gas right eye for macular hole 06/12/2016 - OCT improved EZ loss, hole closed PCIOL right eye - doing well Cataract left eye - doing well Refraction with cherry grower. I have confirmed and edited as necessary the relevant ophthalmic history, ROS, and the neuro exam findings as obtained by others. I have seen and examined this patient. I have discussed the case and the management of this patient's care with the Resident/Fellow, if applicable. I also have reviewed and agree with the assessment and plan as stated above and agree with all of its relevant components. RE-EVALUATION - PT (1) Observed: 05/22/2017 Status: F Source: [place] 12:38 PM [facility] REPOSITORY [facility] [address] [place] [address] Fax REEVALUATION / MEDICARE RECERTIFICATION PHYSICAL THERAPY MR#: [id number] Acct: [id number] Name: SANDOR CORTEZ Rep #: [id number] : 1955 61 From: Giovana Ahumada PT, Cert. MDT Referring Dr.: Darcie Daly RETORT LOADER Status: REG RCR Insurance: [employer] [id number] SELF PAY INSURANCE Darcie Daly NP.LEIGHA It [...] SUBMITTED HIS CASE TO DR. MCKENNA AT [facility] AND IS AWAITING A RESPONSE FROM THEM. PATIENT REPORTS THAT AT THIS POINT HIS BACK IS NOT LIMITING ANY OF HIS NORMAL ACTIVITIES. HE FEELS HIS ACTIVITIES ARE UNRESTRICTED AT THIS TIME. Objective/Function: THIS PATIENT AMBULATES INDEP'LY INTO PT WITH NO GROSS DEVIATIONS NOTED. HE IS ABLE TO TRANSFER IND'LY FROM SIT TO STAND WITHOUT UE ASSIST. NE DENIES PAIN WITH ANY TESTING TODAY. LUMBAR MVMT LOSS: FLEX - NIL, EXT - MOD, ALMA DELIA SG - MIN TO MOD. AGAIN - TESTING DOES NOT PROVOKE PAIN. ALMA DELIA LE STRENGTH IS 5/5 WITH MMT EXCEPT HIPS GRADED 4/5 AND CORE STRENGTH IS FAIR. ALMA DELIA LE DTR'S ARE 2/3. ALMA DELIA LE LIGHT TOUCH SENSATION IS INTACT AND SYMMETRICAL AND ALMA DELIA LE DURAL SIGNS ARE NEGATIVE. HE DOES STILL HAVE DECREASED PROPER HEP KNOWLEGE BUT BECOMING INDEP WITH A POOL PROGRAM TO THE POINT THAT HE CAN TRANSITION TO INDEPEND[place] AT PLACE OF HIS CHOICE (DAYS INN) WHILE DECREASE AQUATIC PT TO ONCE A WEEK. DECREASED [...] all activities. Goal Time Frame: 4-6 Weeks Anticipated Interventions Patient/Client Instruction: [...] setting, Passive ROM, Active ROM, Dynamic Lumbar Stabilization, [...] do not hesitate to contact me at [phone] by phone or if you have questions or concerns regarding this new plan of care! Sincerely, Giovana Ahumada <Electronically signed by Giovana Ahumada PT, Cert. MDT> 05/22/17 1238 CC: Darcie Daly NP CORTES Signed For Medicare only, by signing this I certify the plan of care. Physicians Signature Date SPINE LUMBAR Observed: 05/03/2017 Status: F Source: [place] (ROUTINE) 7:23 AM [facility] REPOSITORY [facility] Imaging Services [address] [place] [id number] Spine Lumbar (Routine) MR#: [id number] Acct: [id number] Name: SANDOR CORTEZ Rep #: [id number] : 1955 M 61 From: Aquiles Garcia MD PCP: Darcie Daly NP Status: REG CLI Study: Spine Lumbar (Routine) Date of Exam: 05/03/17 Exam# [id number] Ordering Dr: Darcie Daly ADDENDUM by Aquiles Garcia MD on 05/10/17 at 0941 MRI/Spine Lumbar (Routine) 05/10/17 0948 Date cc: Darcie Daly NP * Signed ADDENDUM by Aquiles Garcia MD on 05/10/17 at 0941 ADDENDUM IMPRESSION: Grade 1 anterolisthesis of L5 on S1 with L5 level bilateral spondylolysis and spondylotic changes and disc herniation predominating at L2- L3 level. Please see above level by level complete analysis. No evidence for acute lumbar spine fractures. Electronically Signed: Aquiles Garcia, at 9:41 EST Tel , Service support , 05/10/1741 Date cc: Darcie Daly RETORT LOADER * Signed STUDY: MRI LUMBAR SPINE WITHOUT [...] possibly L1 level. Cauda equina nerve roots follow spinal curvature. Minimal wedging of the mid substance of the lumbar vertebra. Disc desiccation at L2-L3, L3-L4 and L5-S1 levels with mild loss of disc height. Endplate degenerative changes at L2-L3, L3-L4 and L5-S1 levels. Anterior and posterior osteophytic spurring. Hypertrophy of this process processes. Heterogeneous marrow signal intensity. Multiple scattered vertebral body hemangiomas Level by level analysis: L1-L2 level: Mild facet hypertrophy ligamentum flavum thickening and broad-based disc bulge without significant central canal stenosis or neural foraminal narrowing L2-L3 level: Bilateral facet hypertrophy ligamentum flavum thickening and broad-based disc bulge with a superimposed left subarticular and foraminal level disc extrusion and cephalad migration resulting in mild deformity of the left [...] with a superimposed small central disc protrusion resulting in mild flattening of the ventral thecal sac [id number] bilateral neural foraminal narrowing. No paraspinous soft tissue mass or fluid collections. IMPRESSION: Grade 1 anterolisthesis of L5 on S1 with L5 level bilateral spondylolysis and spondylotic changes predominating at L2- L3 level. Electronically Signed: Aquiles Garcia, at 10:59 EST Tel , Service support , MRI/Spine Lumbar (Routine) CC: Darcie Daly NP Contracting Support Specialist: Signed MR-SPINE LUMBAR Observed: 05/03/2017 Status: F Source: [place] (ROUTINE) IMPORT 12:00 AM [facility] REPOSITORY Images were obtained outside of [facility] [id number] CR-ORBITS FOR FOREIGN Observed: 05/03/2017 Status: F Source: [place] B[place] 12:00 AM [facility] REPOSITORY Images were obtained outside of [facility] [id number] ORBITS FOR FOREIGN Observed: 05/02/2017 Status: F Source: [place] B[place] 3:33 PM [facility] REPOSITORY [facility] Imaging Services [address] [place] [id number] Orbits for Foreign Body MR#: [id number] Acct: [id number] Name: SANDOR CORTEZ Rep #: [id number] : 1955 M 61 From: Matt Nixon MD PCP: Darcie Daly NP Status: REG CLI Study: Orbits for Foreign Body Date of Exam: 05/03/17 Exam# [id number] Ordering Dr: Darcie Daly STUDY: TO THE ORBITS, RIGHT REASON FOR EXAM: Male, 61 years old. MRI clearance COMPARISON: None. FINDINGS: 2 views demonstrate no metallic orbital foreign body. RAD/Orbits for Foreign Body IMPRESSION: No metallic orbital foreign body. Electronically Signed: Matt Nixon MD at 7:46 EST Tel , Service support , CC: Darcie Daly NP Contracting Support Specialist: Signed INITAL EVALUATION (1) Observed: 05/01/2017 Status: F Source: [place] - PT 8:49 AM [facility] REPOSITORY [facility] [place] [address] Fax REHABILITATION SERVICES INITIAL EVALUATION MR#: [id number] Acct: [id number] Name: SANDOR CORTEZ Rep #: [id number] : 1955 61 From: Quang Parra DPT Referring Dr.: Darcie Daly NP Status: REG RCR Insurance: [employer] [id number] SELF PAY INSURANCE Patient's Visit Information SANDOR CORTEZ is a 61 year old M referred to Physical Therapy by Darcie Daly NP.[facility] with a diagnosis of Sciatica. Date of Evaluation: 04/28/17 Physical Therapist: Quang Parra - Visit Plan Frequency: 2x /Week Plan: Start with distraction in aquatic setting, light TA contraction, general mobility in gravity reduce eviornment. Once symptoms has reduce introduce light lumbar ext mobility. [...] Pt. reports having re occuring back pain 1-2 per year, but not this date. Pt. is now having increased pain to 7-8/10 pain currently, but was so bad over the weekend, it was an 16. Pt did have an xray which showed arthritic changes, but no fx. Pt. reports being in good health prior to this injury and is no retired. He denies changes in B/B, but is having numbnes to his lateral L knee. Pt. [...] get back to all functional and recreational activities without limitations. He was given steroid, but was able to take due to pain. Spouse went to physican during evaluation and pt. was perscribed muscle relaxor. Pt's spouse also reports physician was looking into MRI for pt. - Pain LLE Pain Intensity (Out of 10): 5 Pain Intensity Range: 2, 6 Comment: lateral numbness. - Objective POSTURE: Pt. has flexed posture, fwrd lean and to R side. Pt. has increased pain [...] Core strenth- poor increase NW. GAIT: Pt. ambulates with flexed posture and R wt. shift. Pt. has increased difficulty with getting erect posture. Pt. has increased pain with all L stance phase of gait, shots pain rigth down my leg from my back. DNT stairs this date. - Special Tests L/S Slump test left side: Positive L/S Slump test right side: Negative L/S Left Straight Leg Raise: Positive L/S Right Straight Leg Raise: Negative Lumbar Standing: Flexion - Mechanical Response: No effect Lumbar Standing: Flexion - Symptoms During Testing: Increases Lumbar Standing: Flexion - Symptoms After Testing: No worse Lumbar Standing: Extension - Mechanical Response: No effect Lumbar Standing: Extension - Symptoms During Testing: Increases Lumbar Standing: Extension - Symptoms After Testing: No worse Lumbar Standing: Right Side Glides - Mechanical Response: No effect Lumbar Standing: Right Side [place] - Symptoms During Testing: Increases Lumbar Standing: Right Side [place] - Symptoms After Testing: No worse Lumbar Standing: Left Side [place] - Mechanical Response: No effect Lumbar Standing: Left Side [place] - Symptoms During Testing: Increases Lumbar Standing: Left Side [place] - Symptoms After Testing: No worse Comments:: Pt. unable to get into position of prone secondary to increased pain [...] has signs and symptoms consistent with LBP with possible discogenic in nature. Pt. has positive dural testing with staight leg test, and slump test. Pt. also had an event Rehabilitation Potential: Fair - Anticipated Interventions Patient/Client Instruction: Educate patient on: [...] setting, Passive ROM, Active ROM, Dynamic Lumbar Stabilization, [...] the opportunity to evaluate your patient. For Medicare and Medicare HMO plans, please review the plan of care and approve it. It will need to be FAXED BACK to us at [phone] for Medicare purposes. Please let me know if there are questions or concerns regarding this plan of care. Physician Signature: Date: <Electronically signed by Quang Parra DPT> 05/01/17 0849 CC: Darcie Daly NP CLS Signed For Medicare only, by signing this I certify the plan of care. Physicians Signature Date L/S SPINE MIN 4 Observed: 04/25/2017 Status: F Source: [place] VIEWS 2:17 PM [facility] REPOSITORY [facility] Imaging Services [address] [place] [address] L/S Spine Min 4 Views MR#: [id number] Acct: [id number] Name: SANDOR CORTEZ Rep #: [id number] : 1955 M 61 From: Sreedhar Correa MD PCP: Darcie Daly NP Status: REG CLI Study: L/S Spine Min 4 Views Date of Exam: 04/25/17 Exam# [id number] Ordering Dr: Darcie Daly STUDY: X-RAY - LUMBAR SPINE REASON FOR EXAM: Male, 61 years old. 2 day history of extreme low back pain. TECHNIQUE: 5 view(s) of the lumbar spine were obtained including oblique views. COMPARISON: None FINDINGS: Normal lumbar lordosis. Minimal dextroscoliosis. There is a normal alignment of the vertebrae. Disc space narrowing and spondylosis at the L3-L4 level. Normal disc space heights. Facet joint osteoarthritis. The soft tissue structures are unremarkable. RAD/L/S Spine Min 4 Views IMPRESSION: Degenerative changes of the spine, as detailed above. Electronically Signed: Sreedhar Correa MD at 14:50 EST Tel [phone], Service support , CC: Darcie Daly NP Contracting Support Specialist: Signed OTHER SURGICAL IMAGE Observed: 04/25/2017 Status: F Source: [facility] 12:00 AM [facility] [place] REPOSITORY Photographic digital images obtained during surgery [id number] ALLERGIES ALLERGIES DATE TYPE / CODE NAME / CODE REACTION SEVERITY SOURCE 02/11/2018 Drug No Known Unknown [facility] Allergy/416 Allergies/U84393 Hospital 463096(SNOM 0388(RXNORM) Repository ED CT) Drug NO KNOWN [facility] Class/13628 ALLERGIES [facility] 1003(SNOMED Repository CT) ENCOUNTERS ENCOUNTERS ADMIT/DISCHARGE ACCOUNT ADMITTING ENCOUNTER LOCATION SOURCE NUMBER CLASS 02/11/2018/02/12/20 [id number] Ambulatory BMSBuilding:[address] [place] [address] MS.[facility] Repository 02/03/2018/02/04/20 [id number] Ambulatory BMSBuilding:B [place] [address].[facility] Repository 02/03/2018/02/04/20 [id number] Ambulatory [address] ing:SDCRoom: Repository AC08 01/28/2018 [id number] Ambulatory BMSBuilding:[place] [facility] Repository 01/13/2018/01/16/20 [id number] Ambulatory [address] Repository 01/12/2018/01/13/20 [id number] Ambulatory BMSBuilding:B [place] [address] MS.[facility] Repository 01/06/2018 [id number] Ambulatory [facility] ing:CT Repository 12/29/2017/12/30/19 [id number] Ambulatory BMSBuilding:B Ariel 18 [place].[facility] Repository 12/23/2017/12/27/19 [id number] Ambulatory [address] Repository 07/03/2017/07/08/19 [id number] Ambulatory [place] 18 [facility] Repository 06/03/2017/06/07/19 [id number] Ambulatory [address] Repository 05/22/2017/05/23/19 [id number] Ambulatory [place] ing:PT Repository 05/03/2017 [id number] Ambulatory [facility] ing:MRI Repository 04/25/2017 [id number] [facility] ing:HPRAD Repository PAYERS PAYERS ENCOUNTER GUARANTOR PAYER SUBSCRIBER SOURCE 02/11/2018 SANDOR Ayers Primary SANDOR [id number] [place] Insurance:[place]: [facility] [id number] [id number] [address]Tel: [phone] Number: Repository [phone] () [id number] Date:5487-14-20ZV [address], [place] [address]CK: 02/11/2018 Secondary NOT GIVENUNK Ariel Insurance:SELF PAY [facility] Number: Effective Repository Date:2018-02-11 02/03/2018 SANDOR Ayers Primary SANDOR George [id number] [place] Insurance:[place]: [facility] [id number] [place] [address]Tel: [phone] Number: Repository [phone] () [id number] Date:2763-34-57QK [address]UQ[place]W, [place] [address]CS: 02/03/2018 Secondary NOT GIVENUNK Ariel Insurance:SELF PAY [facility] Number: Effective Repository Date:2018-02-03 02/03/2018 SANDOR Ayers Primary SANDOR George [id number] [place] Insurance:[place]: [facility] [id number] Hospital [address]Xkj: [phone]) Number: Repository [phone] () [id number] Date:8399-03-89TA [facility] [place]84239[place], [place] [address]WY: 02/03/2018 Secondary NOT GIVENUNK Ariel Insurance:SELF PAY [facility] Number: Effective Repository Date:2018-01-14 01/28/2018 ALEX Primary ALEX [place] [id number] [place] Insurance:[place]: [facility] [id number] [place] [id number]: [phone] Number: Repository [phone] () [id number] Date:9600-16-79KL [address] [place] [address]PB: 01/28/2018 Secondary NOT GIVENUNK [place] Insurance:SELF PAY [facility] Number: Effective Repository Date:2018-01-28 01/12/2018 ALEX Primary ALEX [place] [id number] [place] Insurance:[place]: [facility] [id number] [id number] [place] [id number]: [phone]) Number: Repository [phone] () [id number] Date:5759-95-18JB [facility] 729610[place], [place] [address]FY: 01/12/2018 Secondary NOT GIVENUNK [place] Insurance:SELF PAY [facility] Number: Effective Repository Date:2017-12-29 01/06/2018 ALEX Primary ALEX [place] [id number] [place] Insurance:[place]: [address] [id number] [place]ille [id number]: [phone]) Number: Repository [phone] () [id number] Date:3291-30-77OE [facility] 541169LCWAQES, [place] [address]MT: 01/06/2018 Secondary NOT GIVENUNK Ariel Insurance:SELF PAY [facility] Number: Effective Repository Date:2017-12-29 12/29/2017 SANDOR Ayers Primary SANDOR George [id number] [place] Insurance:[place]: [place] CARE [id number] Hospital [address]Zcy: [phone]) Number: Repository [phone] () [id number] Date:0102-93-78EC [facility] 860[address]FK[place]NYY, [place] [address]NL: 12/29/2017 Secondary NOT GIVENUNK Ariel Insurance:SELF PAY [facility] Number: Effective Repository Date:2017-12-29 05/22/2017 ALEX Primary SANDOR Ayers Ariel [id number] [place] Insurance:[place]: [facility] [id number] [place] [id number]: (330) Number: Repository [phone] () [id number] Date:5495-32-53NU [facility] 875214ZNYMGXB, [place] [address]TM: 05/22/2017 Secondary NOT GIVENUNK [place] Insurance:SELF PAY [facility] Number: Effective Repository Date:2017-04-25 05/03/2017 ALEX Primary SANDOR Ayers Ariel [id number] [place] Insurance:[place]: [place] CARE [id number] Hospital [address]Zah: [phone] Number: Repository [phone] () [id number] Date:0698-11-50UP [facility] 910936YPDLANS, [place] [address]KW: 05/03/2017 Secondary NOT GIVENUNK Ariel Insurance:SELF PAY [facility] Number: Effective Repository Date:2017-04-29 04/25/2017 ALEX Primary ALEX Ariel [id number] [place] Insurance:[place] [id number] Hospital [address]Qof: [phone]) Number: Repository [phone] (HP) [id number] Date:4031-98-23JY [address]QZYDYRO, [place] [address]WB: 04/25/2017 Secondary NOT GIVENUNK Ariel Insurance:SELF PAY [facility] Number: Effective Repository Date:2017-04-25
--- OUTSIDE RECORDS SUMMARY | 2018-03-17 21:28 | XMS RPT_ITS | Continuity of Care Document ---
:1955 Author Organization [facility] Address [facility] [facility] [address] [place] [address] Phone Care Team Providers Name Role Phone Addy BUCHANANDarcie E Unavailable Phuc Fisher Unavailable Jillian ALVARADO, Claudia South Unavailable Toan Francisco Unavailable Mt Santos Unavailable Dr. Elkin Silverio Unavailable Long BLOOD BANK CREDIT CLERK, Ana Maria L Unavailable Unavailable Slarb BLOOD BANK CREDIT CLERK, Liz Unavailable Unavailable Unavailable Unavailable Problems Name [...] on statin with CAD adn father early [place]. pt refuse understand risk and benefits Status: [...] : 31-Jan-2016 End : 22-Apr-2016 Inactive ZOSTAVAX, 56512HXH/0.65ML (Subcutaneous Solution Reconstituted) 1 For Solution For [...] macular hole surgery per Dr. Efren Mcrae [facility] Status: Inactive as of 25-Apr-2017 Seborrheic dermatitis, unspecified (L21.9, 690.10) Status: Inactive as of 12-Sep-2008 Unspecified Diagnosis Status: Inactive as of 16-Jul-2013 Procedures Procedure Dates Details COLONOSCOPY, DIAGNOSTIC (51275) Completed Aug-2005 Date Value Details 06-Jan-2018 Abdomen/Pelvis WITH Contrast Result: Comments: See Note; NOTES: [facility] [address] [place] [address] Abdomen/Pelvis WITH Contrast MR#: [id number] Acct: [id number] Name: SANDOR CORTEZ Rep #: [id number] : 1955 M 62 From: Sreedhar Correa MD PCP: Darcie Daly NP Status: REG CLI Study: Abdomen/Pelvis WITH Contrast Date of Exam: 01/06/18 Exam# [id number] Ordering Dr: Sushma Castano STUDY: CT ABDOMEN [...] Sreedhar Correa MD at 13:52 EDT Tel [phone], Service support , CC: Darcie Daly INCOME TAX INVESTIGATOR; Sushma Tavera Stationary Engineer Apprentice: Signed 29-Dec-2017 Surgery Visit Report Result: Comments: See Note; NOTES: [facility] [address] [place] [address] OFFICE VISIT Date of Service: 12/29/17 MR#: [id number] Acct: [id number] Name: SANDOR CORTEZ Rep #: [id number] : 1955 Provider: Samir Kim MD Age/Sex: 62/M Location: [facility] Status: Signed Intake Vital Signs12/29/17 Height 5 ft 11.5 in 12/29/17 Weight: 210 lb 5 oz 8 Body Mass Index (BMI) 28.9 12/29/17 Blood Pressure 138/89 H Intake Visit Reasons: Hernia Chief Complaint: left inguinal pain/ lump Gasoline Attendant Required: No Is patient in pain?: Yes Pain scale (1-10) : 5 Allergies No Known Allergies Allergy (Verified 12/29/17 14:25) Medications aspirin 81 mg chewable tablet 81 mg PO DAILY 12/29/17 [History Confirmed 12/29/17] famotidine 20 mg tablet 20 mg PO DA BRI 12/29/17 [History Confirmed 12/29/17] glucosamine AAu-U3-Eteidvokc lizzy 1,500 mg-400 unit-100 mg tablet 1 [...] is a 62 M who presents to [facility] office today for for evaluation and left [...] person, oriented to place, oriented to time [facility] Head: normocephalic, atraumatic Ears: external e [...] PT (1) Result: Comments: See Note; NOTES: [facility] [address] [place] [address] Fax REEVALUATION / MEDICARE [facility]UTISTA [facility] PHYSICAL THERAP[facility] MR#: [id number] Acct: [id number] Name: SANDOR CORTEZ Rep #: [id number] : 1955 61 From: Giovana Ahumada PT, Cert. MDT Referring Dr.: Darcie Daly INCOME TAX INVESTIGATOR Status: REG RCR Ins urance: [employer] [address] SELF PAY INSURANCE Darcie Daly NP.LEIGHA It [...] SUBMITTED HIS CASE TO DR. MCKENNA AT [facility] AND IS AWAITING A RESPONSE FROM THEM. [...] do not hesitate to contact me at [phone] by phone or if you have questions or concerns regarding this new plan of care! Sincerely, Giovana Ahumada <Electronically signed b y Giovana Ahumada PT, Cert. MDT> 05/22/17 1238 CC: Darcie Daly NP CORTES Signed For Medicare only, by signing this I certify the plan of care. Physicians Signature Date 03-May-2017 Spine Lumbar (Routine) Result: Comments: See Note; NOTES: [facility] [address] [place] [address] Spine Lumbar (Routine) MR#: [id number] Acct: [id number] Name: SANDOR CORTEZ Rep #: [id number] : 1955 M 61 From: Aquiles Garcia MD PCP: Darcie Daly NP Status: REG CLI Study: Spine Lumbar (Routine) Date of Exam: 05/03/17 Exam# [id number] Ordering Dr: Darcie Daly STUDY: MRI LUMBAR [...] mild flattening of the ventral thecal sac otxg-jp-njjstixk bilateral neural foraminal narrowing. No paraspinous soft tissue mass or fluid collections. IMPRESSI ON: Grade 1 anterolisthesis of L5 on S1 with L5 level bilateral spondylolysis and spondylotic changes predominating at L2-L3 level. Electronically Signed: Aquiles Garcia, at 10:59 EST Tel , Service support , 0001 MRI/Spine Lumbar (Routine) CC: Darcie Daly NP Stationary Engineer Apprentice: Signed 03-May-2017 Spine Lumbar (Routine) Result: Comments: See Note; NOTES: [facility] [address] [place] [address] Spine Lumbar (Routine) MR#: [id number] Acct: [id number] Name: SANDOR CORTEZ Rep #: [id number] : 1955 M 61 From: Aquiles Garcia MD PCP: Darcie Daly NP Status: REG CLI Study: Spine Lumbar (Routine) Date of Exam: 05/03/17 Exam# [id number] Ordering Dr: Darcie Daly ADDENDUM by Aquiles [...] mild flattening of the ventral thecal sac ward-vr-ccvftymy bilateral neural foraminal narrowing. No paraspinous soft tissue mass or fluid collections. IMPRESSION: Grade 1 anterolisthesis of L5 on S1 with L5 level bilateral spondylolysis and spondylotic changes predominating at L2-L3 level. Electronically Signed: Aquiles Garcia, at 10:59 EST Tel , Service support [phone], MRI/Spine Lumbar (Routine) CC: Darcie Daly NP Stationary Engineer Apprentice: Signed 02-May-2017 Orbits for Foreign Body Result: Comments: See Note; NOTES: [facility] [address] [place] [address] Orbits for Foreign Body MR#: [id number] Acct: [id number] Name: SANDOR CORTEZ Rep #: [id number] : 1955 M 61 From: Matt Nixon MD PCP: Darcie Daly NP Status: REG CLI Study: Orbits for Foreign Body Date of Exam: 05/03/17 Exam# [id number] Ordering Dr: Darcie Daly STUDY: TO THE ORBITS, RIGHT REASON FOR EXAM: Male, 61 years old. MRI clearance COMPARISON: None. FINDINGS: 2 views demonstrate no metallic orbital foreign body. RAD/Orbits for Foreign Body IMPRESSION: No metallic orbital foreign body. Electronically Signed: Matt Nixon MD at 7:46 EST Tel , Service support , CC: Darcie Daly NP Stationary Engineer Apprentice: Signed 01-May-2017 Inital Evaluation (1) - PT Result: Comments: See Note; NOTES: [facility] Physical Therapy [address] [place] [address] Fax [facility]ITATION SERVICES INITIAL EVALUATION MR#: [id number] Acct: [id number] Name: SANDOR CORTEZ Rep #: [id number] : 1955 61 From: Quang Parra DPT Referring Dr.: Darcie Daly NP Status: REG RCR Insurance: [facility] CAR E [id number] SELF PAY INSURANCE Patient's Visit Information SANDOR CORTEZ is a 61 year old M referred to Physical Therapy by Darcie Daly NP.[facility] with a diagnosis of Sciatica. Date of [...] Response: No effect Lumbar Standing: Right Side [place] - Symptoms During Testing: Increases Lumbar Standing: Right Side [place] - Symptoms After Testing: No worse Lumbar Standing: Left Side [place] - Mechanical Response: No effect Lumbar Standing: Left Side [place] - Symptoms During Testing: Increases Lumbar Standing: Left Side [place] - Symptoms After Testing: No worse Comments:: [...] to be FAXED BACK to us at [phone] for Medicare purposes. Please let me know if there are questions or concer ns regarding this plan of care. Physician Signature: Date: <Electronically signed by Quang Parra DPT> 05/01/17 0849 C C: Darcie Daly NP CLS Signed For Medicare only, by signing this I certify the plan of care. Physicians Signature Date 25-Apr-2017 L/S Spine Min 4 Views Result: Comments: See Note; NOTES: [facility] [address] [place] [address] L/S Spine Min 4 Views MR#: [id number] Acct: [id number] Name: SANDOR CORTEZ Rep #: [id number] : 1955 M 61 From: Sreedhar Correa MD PCP: Darcie Daly NP Status: REG CLI Study: L/S Spine Min 4 Views Date of Exam: 04/25/17 Exam# [id number] Ordering Dr: Darcie Daly STUDY: X-RAY - [...] Sreedhar Correa MD at 14:50 EST Tel [phone], Service support , CC: Darcie Daly NP Stationary Engineer Apprentice: Signed 18-Jul-2015 ELECTROCARDIOGRAM, COMPLETE (ECG) (40940) Comments: see scanned document of test done to see results reviewed today with patient Result: [MEASUREMENTS ANALYSIS] Date of Test: 07/18/2015 16:02:16; Heart Rate: 60; CT Interval: 138; QRS: 102; QT Interval: 428; Corrected QT Interval (QTc): 428; P Wave Hulbert: 30; QRS Wave Hulbert: 31; T Wave Hulbert : 20; Blood Pressure: 124/86 [ECG DIAGNOSTIC STATEMENTS] Date of Test: 07/18/2015 16:02:16; Summary: Sinus Rhythm Voltage criteria for LVH (R(V6) exceeds 2.26 mV) -Voltage criteria w/o ST/T abnormality may be normal. 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 ABNORMAL Immunization Name Dates Details Pneumococcal (2 years and up) on: 28-Feb-2009 Family History Unknown Family Member Name Dates Details Brother 1 Comments: prostate cancer Status: Active Father Comments: HTN, heart disease, [place] 60 yrs - smoker Status: Active HTN (Renamed from Mother) Status: Active Sister 1 Comments: basal cell cancer Status: Active Social History Name Dates Details Alcohol Use Comments: Occasional alcohol use Status: Active Caffeine Use Comments: 2-3 cups coffee qd Status: Active Current Work/Study Status Comments: Full-time, electro mechanical assembler Status: Active Exercise History Comments: Light Status: Active Living Situation Comments: , Lives with spouse Status: Active No Drug Use Status: Active Non Smoker/No Tobacco Use Status: Active Tobacco use: Former smoker. Status: Active Smoking Status Name Dates Details Former smoker Vital Signs Date Test Result Details 0-Qtt-510745:30 Pulse 63 /min Comments: Pattern: Regular Respiration [...] kg/m2 Body Surface Area Calculated 2.2 m2 75-Bxf-413056:17 Pulse 82 /min Comments: Pattern: Regular Respiration [...] kg/m2 Body Surface Area Calculated 2.11 m2 42-Qek-507913:04 Pulse 64 /min Comments: Pattern: Regular Respiration [...] 0.00 cm Results Date Description Value Details 75-Kqo-96652:06 CREATININE FINGERSTICK Comments: [facility] [address] [place] [address] EGFR WB > 60.0000 mL/min (Normal) CREATININE WB 1.2 mg/dL (Normal) Range: 0.70-1.30 10-Ykd-666795:25 PSA (PROSTATE SPECIFIC Comments: PATIENT NOT FASTINGPERFORMED BY: [place] [id number] ANTIGEN) (V76.44) Prostate Specific Ag, 0.8 ng/mL (Normal) Range: 0.0-4.0 Serum Comments: [employer] ECLIA methodology. .According to the [place] Urological [...] the presence or absence of malignant disease. 39-Akx-522251:25 MICROALBUMIN: CREATININE RATIO Comments: PATIENT NOT FASTINGPERFORMED BY: Salezeo70 Adinch IncFormerly [facility] [id number] (49864) AND (82225) Microalb/Creat Ratio <3.0 {mg/g_creat} (Normal) Range: 0.0-30.0 Microalbumin, Urine <3.0 ug/mL (Normal) Creatinine, Urine 100.5 mg/dL (Normal) 89-Npm-786799:25 URINALYSIS (18921) Comments: PATIENT NOT FASTINGPERFORMED BY: AfricasanaMeadowlands Hospital Medical CenterTyngjy7866 [facility] [id number] Microscopic Examination MICNIP (Normal) Comments: Microscopic not indicated and not performed. Nitrite, Urine Negative (Normal) Urobilinogen,Semi-Qn 0.2 mg/dL (Normal) Range: 0.2-1.0 Bilirubin Negative (Normal) Occult Blood Negative (Normal) Ketones Negative (Normal) Glucose Negative (Normal) Protein Negative (Normal) WBC Esterase Negative (Normal) Appearance Clear (Normal) Urine-Color Yellow (Normal) pH 6.5 (Normal) Range: 5.0-7.5 Specific [place] 1.016 (Normal) Range: 1.005-1.030 :25 PT (PROTHROMBIN TIME) (18834) Comments: PATIENT NOT FASTINGPERFORMED BY: Africasana Obqobj1260 [facility] [id number] Prothrombin Time 11.1 {sec} (Normal) Range: 9.1-12.0 INR 1.1 (Normal) Range: 0.8-1.2 Comments: Reference interval is for non-anticoagulated patients. . Suggested INR therapeutic range for Vitamin K anta gonist therapy: Standard Dose (moderate intensity therapeutic range): 2.0 - 3.0 Higher intensity therapeutic range 2.5 - 3.5 49-Dfm-859563:25 CBC, Platelets & Auto Diff Comments: PATIENT NOT FASTINGPERFORMED BY: AfricasanaMeadowlands Hospital Medical CenterZrtleh6011 [facility] [id number] (33530) Immature Grans (Abs) 0.0 {x10E3/uL} (Normal) Range: [...] 4.14-5.80 WBC 4.9 {x10E3/uL} (Normal) Range: 3.4-10.8 35-Mqo-061872:25 Metabolic Panel, Comprehensive Comments: PATIENT NOT FASTINGPERFORMED BY: LabCoMeadowlands Hospital Medical CenterTrazfe4563 [facility] [id number] (35719) ALT (SGPT) 15 [iU]/L (Normal) Range: 0-44 [...] 87 mg/dL (Normal) Range: 65-99 :59 URINALYSIS (34660) Comments: PATIENT NOT FASTINGPERFORMED BY: SosseeFormerly [facility] [id number] Information: [id number] Microscopic Examination MICNIP (Normal) Comments: Microscopic not indicated and not performed. Nitrite, Urine Negative (Normal) Urobilinogen,Semi-Qn 1.0 mg/dL (Normal) Range: 0.2-1.0 Bilirubin Negative (Normal) Occult Blood Negative (Normal) Ketones Negative (Normal) Glucose Negative (Normal) Protein Negative (Normal) WBC Esterase Negative (Normal) Appearance Clear (Normal) Urine-Color Yellow (Normal) pH 7.5 (Normal) Range: 5.0-7.5 Specific [place] 1.019 (Normal) Range: 1.005-1.030 :23 PSA (Prostate Specific Comments: PATIENT WAS FASTINGPERFORMED BY: Syntaxin6370 [facility] IncFormerly [facility] [id number] Antigen), Screening (73939) Prostate Specific Ag, 0.6 ng/mL (Normal) Range: [...] Panel, Comprehensive Comments: PATIENT WAS FASTINGPERFORMED BY: Afric[employer]ana Cjlhhg2710 [facility] [id number] (64844) ALT (SGPT) 15 [iU]/L (Normal) Range: 0-44 [...] mg/dL (Normal) Range: 65-99 :23 Lipid Panel (73726) Comments: PATIENT WAS FASTINGPERFORMED BY: AfricasanaMeadowlands Hospital Medical CenterJunmzr8676 [facility] [id number] LDL/HDL Ratio 2.5 {ratio_units} (Normal) Range: 0.0-3.6 [...] Cholesterol, Total 184 mg/dL (Normal) Range: 100-199 98-Wdu-481914:23 CBC WITH MANUAL DIFF Comments: PATIENT WAS FASTINGPERFORMED BY: LabCoMeadowlands Hospital Medical CenterNainjo8587 [facility] [id number] Information: [id number] (08066) Immature Grans (Abs) 0.0 {x10E3/uL} (Normal) Range: [...] Differential/Platelet Comments: PATIENT WAS FASTINGPERFORMED BY: KAILEY AfricasanaMeadowlands Hospital Medical CenterHgcqdf5261 [facility] [id number] Information: [id number] Immature Grans (Abs) 0.0 {x10E3/uL} (Normal) Range: [...] Panel (14) Comments: PATIENT WAS FASTINGPERFORMED BY: [facility]6370 [facility] [id number] ALT (SGPT) 17 [iU]/L (Normal) Range: 0-44 [...] Glucose, Serum 95 mg/dL (Normal) Range: 65-99 54-Yng-49629:20 Lipid Panel With LDL/HDL Comments: PATIENT WAS FASTINGPERFORMED BY: LabCoM[facility]owlands Hospital Medical CenterEsovsq2650 [facility] [id number] Ratio LDL/HDL Ratio 2.5 {ratio_units} (Normal) Range: [...] Microscopic Examination Comments: PATIENT WAS FASTINGPERFORMED BY: Salezeo70 FastPayNov[facility] Hospital [id number] Bacteria None seen (Normal) Mucus Threads Present (Normal) Epithelial Cells (non renal) None seen {/hpf} (Normal) Range: 0 - 10 RBC None seen {/hpf} (Normal) Range: 0 - 2 WBC 0-5 {/hpf} (Normal) Range: 0 - 5 :20 Prostate-Specific Ag, Serum Comments: PATIENT WAS FASTINGPERFORMED BY: Syntaxin6370 Adinch IncFormerly [facility] [id number] Prostate Specific Ag, 0.8 ng/mL (Normal) Range: 0.0-4.0 Serum Comments: [employer] ECLIA methodology. .According to the [place] Urological [...] Urinalysis, Complete Comments: PATIENT WAS FASTINGPERFORMED BY: Syntaxin6370 Mera TwistNov[facility] [id number] Microscopic Examination See below: (Normal) Comments: Microscopic was indicated and was performed. Microscopic Examination MICRON (Normal) Comments: Microscopic follows if indicated. Nitrite, Urine Negative (Normal) Urobilinogen,Semi-Qn 0.2 mg/dL (Normal) Range: 0.0-1.9 Bilirubin Negative (Normal) Occult Blood Negative (Normal) Ketones Negative (Normal) Glucose Negative (Normal) Protein Negative (Normal) WBC Esterase Negative (Normal) Appearance Clear (Normal) Urine-Color Yellow (Normal) pH 7.0 (Normal) Range: 5.0-7.5 Specific [place] 1.019 (Normal) Range: 1.005-1.030 :09 BILIRUBIN, TOTAL (66217) Comments: PATIENT NOT FASTINGPERFORMED BY: [place] 8952570 [facility] [id number] Information: [id number] Bilirubin, Indirect 0.48 mg/dL (Normal) Range: 0.10-0.80 Bilirubin, Direct 0.22 mg/dL (Normal) Range: 0.00-0.40 Bilirubin, Total 0.7 mg/dL (Normal) Range: 0.0-1.2 :52 Hemoglobin Glyclated (HGB A1C) Comments: PATIENT WAS FASTINGPERFORMED BY: [address] [id number] (27034) Hemoglobin A1c 5.6 % (Normal) Range: 4.8-5.6 Comments: . Increased risk for diabetes: 5.7 - 6.4 Diabetes: >6.4 Glycemic control for adults with diabetes: <7.0 :52 Lipid Panel (63585) Comments: PATIENT WAS FASTINGPERFORMED BY: [address] [id number] Information: [id number] LDL/HDL Ratio 2.1 {ratio_units} (Normal) Range: 0.0-3.6 LDL Cholesterol Calc 106 mg/dL (Abnormal) Range: 0-99 VLDL Cholesterol Rafi 14 mg/dL (Normal) Range: 5-40 HDL Cholesterol 51 mg/dL (Normal) Comments: According to ATP-III Guidelines, HDL-C >59 mg/dL is considered anegative risk factor for CHD. Triglycerides 71 mg/dL (Normal) Range: 0-149 Cholesterol, Total 171 mg/dL (Normal) Range: 100-199 52-Xsy-067846:58 PSA (PROSTATE SPECIFIC Comments: PATIENT WAS FASTINGPERFORMED BY: [address] [id number] ANTIGEN) (V76.44) Prostate Specific Ag, 0.7 ng/mL [...] the presence or absence of malignant disease. 82-Mur-314211:58 METABOLIC PANEL, COMPREHENSIVE Comments: PATIENT WAS FASTINGPERFORMED BY: LabCoMeadowlands Hospital Medical CenterCerkrq6822 [facility] [id number] (19276) ALT (SGPT) 24 [iU]/L (Normal) Range: 0-44 [...] mg/dL (Abnormal) Range: 65-99 :58 LIPID PANEL (41902) Comments: PATIENT WAS FASTINGPERFORMED BY: [facility]6370 [facility] [id number] LDL/HDL Ratio 2.5 {ratio_units} (Normal) Range: 0.0-3.6 [...] MANUAL DIFF Comments: PATIENT WAS FASTINGPERFORMED BY: AfricasanaMeadowlands Hospital Medical CenterIbzuux4724 [facility] [id number] Information: [id number] (61562) Immature Grans (Abs) 0.0 {x10E3/uL} (Normal) Range: [...] 4.14-5.80 WBC 7.1 {x10E3/uL} (Normal) Range: 4.0-10.5 50-Dsw-519570:45 FOLIC ACID SERUM (92335) Comments: PATIENT NOT FASTINGPERFORMED BY: [facility]6370 [facility] [id number] Information: [id number] Folate (Folic Acid), Serum >19.9 ng/mL (Normal) Comments: Indeterminate: 2.2 - 3.0 Deficient: <2.2 46-Bhz-270633:45 Vitamin B-12 (cyanocobalamin) Comments: PATIENT NOT FASTINGPERFORMED BY: [facility]6370 [facility] [id number] (59108) Vitamin B12 463 pg/mL (Normal) Range: 211-946 17-Vct-177441:45 TSH (64781) Comments: PATIENT NOT FASTINGPERFORMED BY: [facility]6370 [facility] [id number] TSH 1.120 {uIU/mL} (Normal) Range: 0.450-4.500 57-Qav-691417:41 Microscopic Examination Comments: PATIENT WAS FASTINGPERFORMED BY: [facility]6370 [facility] [id number] Bacteria Few (Normal) Epithelial Cells (non renal) None seen {/hpf} (Normal) Range: 0 - 10 RBC 0-3 {/hpf} (Normal) Range: 0 - 3 WBC 0-5 {/hpf} (Normal) Range: 0 - 5 60-Iwn-438136:41 METABOLIC PANEL, COMPREHENSIVE Comments: PATIENT WAS FASTINGPERFORMED BY: [facility]6370 [facility] [id number] (19235) ALT (SGPT) 19 [iU]/L (Normal) Range: 0-55 [...] Glucose, Serum 87 mg/dL (Normal) Range: 65-99 47-Atn-529757:41 PSA (PROSTATE SPECIFIC Comments: PATIENT WAS FASTINGPERFORMED BY: LabHenry [facility]6370 [facility] [id number] ANTIGEN) (V76.44) Prostate Specific Ag, 0.7 ng/mL (Normal) Range: 0.0-4.0 Serum Comments: [employer] ECLIA methodology. .According to the [place] Urological [...] the presence or absence of malignant disease. 63-Seb-599542:41 URINALYSIS, W/ MICRO (25135) Comments: PATIENT WAS FASTINGPERFORMED BY: SosseeFormerly [facility] [id number] Microscopic Examination See below: (Normal) Microscopic Examination MICRON (Normal) Comments: Microscopic follows if indicated. Nitrite, Urine Negative (Normal) Urobilinogen,Semi-Qn 0.2 mg/dL (Normal) Range: 0.0-1.9 Bilirubin Negative (Normal) Occult Blood Negative (Normal) Ketones Negative (Normal) Glucose Negative (Normal) Protein Negative (Normal) WBC Esterase Negative (Normal) Appearance Clear (Normal) Urine-Color Yellow (Normal) pH 7.0 (Normal) Range: 5.0-7.5 Specific [place] 1.020 (Normal) Range: 1.005-1.030 :41 LIPID PANEL (80361) Comments: PATIENT WAS FASTINGPERFORMED BY: Salezeo70 [employer] IncFormerly [facility] [id number] LDL/HDL Ratio 2.2 {ratio_units} (Normal) Range: 0.0-3.6 [...] MANUAL DIFF Comments: PATIENT WAS FASTINGPERFORMED BY: [facility] [id number] Information: [id number] (28279) Immature Grans (Abs) 0.0 {x10E3/uL} (Normal) Range: [...] 4.10-5.60 WBC 4.9 {x10E3/uL} (Normal) Range: 4.0-10.5 63-Hwq-688060:51 PSA (PROSTATE SPECIFIC Comments: PATIENT WAS FASTINGPERFORMED BY: LabHenry [facility]6370 [facility] [id number] ANTIGEN) (V76.44) Prostate Specific Ag, 0.6 ng/mL [...] the presence or absence of malignant disease. 77-Umj-826601:51 LIPID PANEL (12627) Comments: PATIENT WAS FASTINGPERFORMED BY: Syntaxin6370 [facility] [id number] LDL Cholesterol Calc 95 mg/dL (Normal) Range: 0-99 LDL/HDL Ratio 1.8 {ratio_units} (Normal) Range: 0.0-3.6 HDL Cholesterol 52 mg/dL (Normal) Comments: According to ATP-III Guidelines, HDL-C >59 mg/dL is considered anegative risk factor for CHD. VLDL Cholesterol Rafi 16 mg/dL (Normal) Range: 5-40 Triglycerides 81 mg/dL (Normal) Range: 0-149 Cholesterol, Total 163 mg/dL (Normal) Range: 100-199 07-Vmc-182678:51 METABOLIC PANEL, Comments: PATIENT WAS FASTINGPERFORMED BY: PostRankMountain View Regional Medical CenterAvpysd8468 [facility] [id number] Information: [id number] COMPREHENSIVE (16977) ALT (SGPT) 19 [iU]/L (Normal) Range: 0-55 [...] Report See Note (Normal) Comments: Exam Number: [id number] Procedure completed. Please see MEDICAL RECORDS reports [...] (Normal) GLU 97 mg/dL (Normal) Range: 70-110 39-Bfx-994512:35 LIPID HDL 37 mg/dL (Abnormal) Comments: Reference [...] CHOL 139 mg/dL (Normal) Comments: <200 mg/dL Ydhiwsayy239-781 mg/dL Borderline>240 mg/dL High Risk 92-Oud-380017:35 LIVER ALB 3.2 g/dL (Abnormal) Range: 3.4-5.0 ALK P 58 U/L (Normal) Range: 50-136 ALT 18 U/L (Normal) Range: 12-78 AST 15 U/L (Normal) Range: 15-37 D BILI 0.27 mg/dL (Normal) Range: 0.00-0.30 T BILI 1.10 mg/dL (Abnormal) Range: 0.00-1.00 T PROT 5.8 g/dL (Abnormal) Range: 6.4-8.2 45-Vzh-499660:35 MG 1.7 mg/dL (Normal) Range: 1.5-2.2 73-Wcz-662270:06 PSA (PROSTATE SPECIFIC Comments: PATIENT WAS FASTINGPERFORMED BY: [place] [id number] ANTIGEN) (V76.44) Prostate Specific Ag, 0.5 ng/mL (Normal) Range: 0.0-4.0 Serum Comments: [employer] ECLIA methodology. .According to the [place] [employer] [...] PANEL, COMPREHENSIVE Comments: PATIENT WAS FASTINGPERFORMED BY: [employer] [place] [id number] ([id number]) A/G Ratio 1.9 (Normal) Range: 1.1-2.5 Albumin, [...] Sodium, Serum 140 mmol/L (Normal) Range: 135-145 44-Gze-985995:06 LIPID PANEL (83730) Comments: PATIENT WAS FASTINGPERFORMED BY: [facility] CenterXffera7469 [facility] [id number] Cholesterol, Total 208 mg/dL (Abnormal) Range: 100-199 HDL Cholesterol 50 mg/dL (Normal) Comments: According to ATP-III Guidelines, HDL-C >59 mg/dL is considered anegative risk factor for CHD. LDL Cholesterol Calc 139 mg/dL (Abnormal) Range: 0-99 LDL/HDL Ratio 2.8 {ratio_units} (Normal) Range: 0.0-3.6 Triglycerides 95 mg/dL (Normal) Range: 0-149 VLDL Cholesterol Rafi 19 mg/dL (Normal) Range: 5-40 10-Uwr-321293:06 CBC WITH MANUAL DIFF (82920) Comments: PATIENT WAS FASTINGClinical Information: [id number] PERFORMED BY: [facility] [id number] Baso (Absolute) 0.1 {x10E3/uL} (Normal) Range: 0.0-0.2 [...] {x10E3/uL} (Normal) Range: 4.0-10.5 :16 Rapid Flu (97081 x 2) INFLUENZA IMMUNOASSY DIRECT OPTICAL OBSERV negative (Normal) :16 Rapid Strep Test, Office (73062) Rapid Strep Test, Office Negative (Normal) :29 PSA (PROSTATE SPECIFIC Comments: PERFORMED BY: [employer] [facility] [id number] ANTIGEN) (V76.44) Prostate Specific Ag, Serum 0.5 ng/mL (Normal) Range: 0.0-4.0 Comments: [employer] methodology. .According to the [place] [employer], PSA should beundetectable after radical prostatectomy. A PSA of less than0.5 ng/mL (or undetectable) is not likely to be associated withdisease recurrence within five years of treatment.Values obtained with different assay methods or kits cannot be usedinterchang eably. Results cannot be interpreted as absolute evidenceof the presence or absence of malignant disease. :29 URINALYSIS W/O MICRO (97635) Comments: PERFORMED BY: [employer] [facility] [id number] Appearance Clear (Normal) Bilirubin Negative (Normal) Glucose Negative (Normal) Ketones Negative (Normal) Microscopic Examination MICRON (Normal) Comments: Microscopic follows if indicated. Nitrite, Urine Negative (Normal) Occult Blood Negative (Normal) pH 6.5 (Normal) Range: 5.0-7.5 Protein Negative (Normal) Specific [place] 1.023 (Normal) Range: 1.005-1.030 Urine-Color Yellow (Normal) Urobilinogen,Semi-Qn 0.2 mg/dL (Normal) Range: 0.0-1.9 WBC Esterase Negative (Normal) :29 LIPID PANEL (36623) Comments: PERFORMED BY: [employer]6[address] [facility] [id number] Cholesterol, Total 225 mg/dL (Abnormal) Range: 100-199 [...] Cholesterol Rafi 24 mg/dL (Normal) Range: 5-40 45-Iwe-74369:29 METABOLIC PANEL, COMPREHENSIVE Comments: PERFORMED BY: [facility] Tdkomz3911 [facility] [id number] ([id number]) A/G Ratio 1.7 (Normal) Range: 1.1-2.5 Albumin, [...] Range: 135-145 :29 CBC WITH MANUAL DIFF (84579) Comments: PERFORMED BY: KAILEY [facility]CoM[facility] CenterRxmswq2164 [facility] [id number] Baso (Absolute) 0.0 {x10E3/uL} (Normal) Range: 0.0-0.2 [...] Other chest pain Planned Observations LIPID PANEL (84941)Indication: Hypercholesterolemia On: 74-Ins-716293:42 Request Comments: fasting in future Urinalysis, Office (57040)Indication: Preop examination On: 18-Rya-987393:26 Request PSA (PROSTATE SPECIFIC ANTIGEN) (V76.44)Indication: Encounter for routine history and physical exam for male On: :18 Request URINALYSIS, W/ MICRO (98158)Indication: Hypertension On: :18 Request METABOLIC PANEL, COMPREHENSIVE (62671)Indication: Hypertension On: 22-Lrn-71703:17 Request LIPID PANEL (95696)Indication: Hypertension On: :17 Request CBC with auto diff (59918)Indication: Hypertension On: :17 Request BILIRUBIN DIRECT (42889)Indication: Total bilirubin, elevated On: 16-Jul-20137:48 Request URINALYSIS, W/ MICRO (69774)Indication: Hypertension On: 08-Pba-672738:24 Request Planned Procedures Flu Vaccine (Quadrivalent) On: 12-Jan-2018 Intent 38284Li: Visit, Nurse Comments: Lot #[id number]/30/2019Site-L dltd, IMDose prefilled syringegiven by:Akosua Rucker LPNVIS reviewed and ABN signed Kenalog Injection, 10 mgm On: 09-May-2017 Intent (J3301)By: Darcie Daly CNP Comments: 30mg - [id number]/2018L hip, IMMLONG, BLOOD BANK CREDIT CLERK Darcie Daly CNP Toradol Injection, 30 mg On: 09-May-2017 Intent (J1885)By: Darcie Daly CNP, CNP, Mary E MRI LUMBAR SPINE W/O CONTRAST On: 28-Apr-2017 Intent (49742)By: Darcie Daly CNP, CNP, Mary E Toradol Injection, 30 mg On: 28-Apr-2017 Intent (J1885)By: Darcie Daly CNP, CNP, Mary E Radiology - Lumbar SpineBy: On: 25-Apr-2017 Intent Darcie Daly CNP, CNP, Mary E Toradol Injection, 30 mg On: 25-Apr-2017 Intent (J1885)By: Darcie Daly CNP Comments: [id number]/794157zw/mlL hip IMMLONG Darcie Daly CNP Flu Vaccine (Quadrivalent) On: 16-Dec-2016 Intent 10583Uw: Darcie Daly CNP Comments: Lot:[id number]:06/2017Dose:0.5mLRoute:IMSite:L DltdGiven By:Autumn signed Darcie Daly CNP ELECTROCARDIOGRAM, COMPLETE On: 22-May-2016 Intent (ECG) (48505)By: Addy BUCHANAN, Comments: sinus rthym ShilpaDarcie Horta CNP Flu Vaccine (Quadrivalent) On: 12-Jan-2016 Intent 89973Qa: Darcie Daly CNP Comments: FLUlot: [id number]:07/24site:Lt deltoidroute:IMdose:.5mlDEMICK, [place]. Darcie Daly CNP Flu Vaccine (Quadrivalent) On: 06-Jan-2015 Intent 04301Gt: Claudia Walsh MD Comments: Lot:[id number]:09/07/15Dose:0.5mLRoute:IMSite:L DltdGiven By:MARIJA signed TD VACCINE ADULT (47059)By: On: 21-Jul-2014 Intent Claudia Walsh MD TDAP VACCINE >7 IM (50373)By: On: 21-Jul-2014 Intent Claudia Walsh MD EKG (65513)By: Jillian ALVARADO, On: 21-Jul-2014 Intent Claudia South Comments: see scanned document of test done to see results reviewed today with patient IMMUNIZ ADMNIN, 1 VAC, On: 27-Dec-2013 Intent SNGL/COMBO (35729)By: Jillian Comments: lot:[id number]:09/06/2014dose:0.5mLRoute: IMlocation: L armgiven by: Claudia altman MD FLU VAC, SPLIT, >3 YEARS, On: 27-Dec-2013 Intent INTRAMUSC (57643)By: Marcia Anaya IMMUNIZ ADMNIN, 1 VAC, On: 16-Jul-2013 Intent SNGL/COMBO (58005)By: Claudia Walsh MD EKG (08152)By: Jillian ALVARADO, On: 27-Feb-2012 Intent Claudia South Comments: see scanned document of test done to see results reviewed today with patient EKG (71748)By: Ed, On: 27-Feb-2012 Intent VIVIANA EKG (15211)By: Jillian ALVARADO, On: 26-Feb-2011 Intent Claudia South EKG (07979)By: Ed On: 06-Mar-2010 Intent VIVIANA IMMUNIZ ADMNIN, 1 VAC, On: 28-Feb-2009 Intent SNGL/COMBO (63840)By: Claudia Walsh MD PNEUM VAC ADLT/IMUMNOSPR, On: 28-Feb-2009 Intent SBC/INTRM (93993)By: Claudia Walsh MD EKG (21300)By: Ed On: 28-Feb-2009 Intent VIVIANA EKG (80870)By: Jillian ALVARADO, On: 08-Mar-2008 Intent Claudia South Toradol Injection, 30 mg On: 17-Apr-2007 Intent (J1885)By: Celestina NUGENT, Comments: Lot #: [id number] date: 01/15Amount given: 30 mg/1 mlRoute: IMSite given: Right hipGiven by: JESÚS Guerrier Radiology - ChestBy: Jillian On: 21-Feb-2006 Intent Claudia ALVARADO Nuclear Stress Test/Stress On: 21-Feb-2006 Intent SPECT/TreadmillBy: Claudia Walsh MD Planned Medications INJECTION, KETOROLAC TROMETHAMINE, PER 15 MG Ordered: 25-Apr-2017 Pending [employer]QUOR ESTABLISHMENT MANAGER, Shilpa Ciesa LIQUOR ESTABLISHMENT MANAGER, Shilpa INJECTION, KETOROLAC TROMETHAMINE, PER 15 MG Ordered: 28-Apr-2017 Pending [employer] LIQUOR ESTABLISHMENT MANAGER, Shilpa Ciesa LIQUOR ESTABLISHMENT MANAGER, Shilpa INJECTION, KETOROLAC TROMETHAMINE, PER 15 MG Ordered: 09-May-2017 Pending [employer] LIQUOR ESTABLISHMENT MANAGER, Shilpa Ciesa LIQUOR ESTABLISHMENT MANAGER, Shilpa INJECTION, TRIAMCINOLONE ACETONIDE, NOT OTHERWISE SPECIFIED, 10 MG Ordered: 09-May-2017 Pending [employer] LIQUOR ESTABLISHMENT MANAGER, Shilpa Ciesa LIQUOR ESTABLISHMENT MANAGER, Shilpa Instructions Name Dates Details Lower back [...] : DISCONTINUED - URINALYSIS, AUTOMATED W/ MICRO (73190) Indication: Hypertension Hypertension : DISCONTINUED - CBC WITH MANUAL DIFF (69549) Indication: Hypertension Numbness and tingling of leg [...] [facility] End: 17-Feb-2006 11:14 [facility]ayers [facility]Sand[facility] Cortez; aurea guarantor
== END 2018-02-03 14:02 | disposition home or self-care (01) ==
LOC: SDC 08:40 → AC 08:40
PROVIDERS: Family Provider Nurse Practitioner; PCP Nurse Practitioner; Referring Provider Surgery; Visit Provider Surgery
PROC: (CPT 49650; principal; 2018-02-03 10:40)
DX: K40.90 Unilateral inguinal hernia, without obstruction or gangrene, not specified as recurrent (principal); K21.9 Gastro-esophageal reflux disease without esophagitis; I10 Essential (primary) hypertension; Z85.828 Personal history of other malignant neoplasm of skin; Z79.82 Long term (current) use of aspirin; Z79.899 Other long term (current) drug therapy; Z87.891 Personal history of nicotine dependence
CPT/HCPCS: 00840; 49650; 93005; 94640; J7120; C1781; J2405